=== PATIENT | female | born 1930 | race Caucasian/White ===

== ENCOUNTER 2017-07-26 16:19 | Inpatient (IN) | payer MEDICARE ==
[~2017-07-26] VITALS: Ht 157.5 cm; Wt 63.5 kg
[~2017-07-26 16:19] MED LIST: AMLODIPINE BESY10 MG PO; ASPIRIN EC81 MG PO; METOPROLOL TART25 MG PO; MICARDIS HCT 81 EACH PO; PLAVIX75 MG PO; SENNOSIDES8.6 MG PO; SIMVASTATIN40 MG PO
[2017-07-26] MEDS ORDERED: ACETAMINOPHEN 325 MG TAB PO PRN (17:15)
[2017-07-26] MEDS ORDERED: SODIUM CHLORIDE 0.9% 250ML 250 ML ONE (17:26)
[2017-07-26] MEDS: PIPER-TAZ 3.375 GM 100 ML IV SCH (17:45)
[2017-07-26 17:51] VITALS: BP 156/56
[2017-07-26 17:55] LABS: BASOPHILS % 0.3 % (0.0-1.0); EOSINOPHILS # (AUTO) 0.1 (0.0-0.4); EOSINOPHILS % 0.5 % (0.0-6.0); HEMATOCRIT 42.4 % (34.2-44.1); HEMOGLOBIN 14.4 g/dL (12.0-16.0); LYMPHOCYTES # (AUTO) 0.6 (1.0-3.2); LYMPHOCYTES % 3.9 % (18.0-39.1); MEAN CORPUSCULAR HEMOGLOBIN 29.6 pg (28-32); MEAN CORPUSCULAR VOLUME 87.2 fL (81-99); MONOCYTES # (AUTO) 0.6 (0.2-0.8); MONOCYTES % 4.4 % (4.4-11.3); NEUTROPHILS # (AUTO) 13.3 (2.1-6.9); NEUTROPHILS % 90.3 % (38.7-80.0); PLATELET COUNT 247 x10e3/uL (140-360); RED BLOOD COUNT 4.86 x10e6/uL (3.6-5.1)
[2017-07-26 18:12] LABS: ANION GAP 15.3 mmol/L (8-16); CALCIUM 9.4 mg/dL (8.4-10.2); CREATININE, SERUM 1.6 mg/dL (0.57-1.11); POTASSIUM 3.3 mmol/L (3.5-5.1)
[2017-07-26 18:15] VITALS: BP 156/56
[2017-07-26 18:26] LABS: ERYTHROCYTE SEDIMENTATION RATE 74 mm/hr (0-20)
[2017-07-26] MEDS ORDERED: HYDROCHLOROTHIA25 MG (19:39)
[2017-07-26] MEDS ORDERED: GABAPENTIN100 MG PO (19:41)
[2017-07-26] MEDS ORDERED: AMLODIPINE BESYL5 MG PO (19:44)
[2017-07-26] MEDS ORDERED: LOSARTAN POTASS25 MG PO (19:45)
[2017-07-26] MEDS ORDERED: PANTOPRAZOLE SO40 MG PO (19:46)
[2017-07-26] MEDS ORDERED: ATORVASTATIN CA20 MG PO (19:47)
[2017-07-26 20:00] VITALS: BP 116/50
[2017-07-26] MEDS: VANCOMYCIN 1GM/NS 250 ML 250 ML IV SCH (21:17)
[2017-07-27] VITALS (8 sets, daily range): BP systolic 107–140; BP diastolic 52–68
[2017-07-27] MEDS: PIPER-TAZ 3.375 GM 100 ML IV SCH ×3 (00:46→16:29)
[2017-07-27] MEDS: VANCOMYCIN 1GM/NS 250 ML 250 ML IV SCH ×2 (05:15→18:23)
[2017-07-27 06:44] LABS: BASOPHILS % 0.3 % (0.0-1.0); EOSINOPHILS # (AUTO) 0.5 (0.0-0.4); EOSINOPHILS % 5.4 % (0.0-6.0); HEMATOCRIT 39.3 % (34.2-44.1); HEMOGLOBIN 13.2 g/dL (12.0-16.0); LYMPHOCYTES # (AUTO) 0.8 (1.0-3.2); LYMPHOCYTES % 8.4 % (18.0-39.1); MEAN CORPUSCULAR HEMOGLOBIN 29.1 pg (28-32); MEAN CORPUSCULAR HGB CONC 33.6 g/dL (31-35); MEAN CORPUSCULAR VOLUME 86.8 fL (81-99); MONOCYTES # (AUTO) 0.6 (0.2-0.8); MONOCYTES % 6.1 % (4.4-11.3); NEUTROPHILS # (AUTO) 7.6 (2.1-6.9); NEUTROPHILS % 79.4 % (38.7-80.0); PLATELET COUNT 209 x10e3/uL (140-360); RED BLOOD COUNT 4.53 x10e6/uL (3.6-5.1); RED CELL DISTRIBUTION WIDTH 12.8 % (11.7-14.4)
[2017-07-27] MEDS ORDERED: BUPIVACAINE HCL 0.5% INJ 30 ML VIAL INJ ONE (07:03)
[2017-07-27] MEDS ORDERED: DEXAMETHASONE SOD PHOS INJ 4 MG/ML VIAL ONE (07:03)
[2017-07-27 07:10] LABS: ANION GAP 13.3 mmol/L (8-16); CALCIUM 8.8 mg/dL (8.4-10.2); CREATININE, SERUM 1.12 mg/dL (0.57-1.11); POTASSIUM 3.3 mmol/L (3.5-5.1)
[2017-07-27 07:24] LABS: ERYTHROCYTE SEDIMENTATION RATE 78 mm/hr (0-20)
[2017-07-27] MEDS ORDERED: BACITRACIN 50,000 UNIT VIAL ONE (07:27)
[2017-07-27] MEDS ORDERED: HYDROCODONE/APAP 5MG-325MG TAB PO PRN (07:45)
[2017-07-27] MEDS: PANTOPRAZOLE SOD 40 MG TABEC PO SCH (08:38)
[2017-07-27] MEDS: ASPIRIN 81 MG ENTERIC COATED PO SCH (08:38)
[2017-07-27] MEDS: METOPROLOL TARTRATE 25 MG TAB PO SCH ×2 (08:38→16:30)
[2017-07-27] MEDS: LOSARTAN POTASSIUM 25 MG TAB PO SCH (08:38)
[2017-07-27] MEDS: AMLODIPINE BESYLATE 5 MG TAB PO SCH (08:39)
--- NOTE | 2017-07-27 09:50 | Consultation ---
DATE OF CONSULTATION: July 27, 2017 HISTORY OF PRESENT ILLNESS: This is an 86-year-old female with a past medical history of hypertension and GERD who was direct admitted yesterday for worsening infection to her left foot. She was seen in clinic as an outpatient in the office 2 days ago with a worsening infection to her left foot. The patient lives at home with her son. The patient was brought in saying there were redness, swelling and drainage to her left toe for over 2 weeks. An I and D procedure was performed, and the patient was started on oral antibiotics and instructed to return to clinic in 2 days. The infection subsided some over the past 2 days, but there were still significant erythema and edema to the left foot. X-rays were taken, which revealed osteolytic changes to the patient's left hallux. A decision was made to admit the patient for IV antibiotics and left hallux amputation. No other pedal complaints at this time. PAST MEDICAL HISTORY: Hypertension, GERD. MEDICATIONS: Per the chart. ALLERGIES: NO KNOWN DRUG ALLERGIES. REVIEW OF SYSTEMS: Patient currently denies nausea, vomiting, chest pain or shortness of breath. She has had fevers. PHYSICAL EXAMINATION GENERAL: Alert and oriented times 3, in no apparent distress. VITAL SIGNS: Today, temperature is 98.2, heart rate 76, respiratory rate 18, blood pressure 111/57. Pulse ox is 96% on room air. Temperature max overnight was 100.5. PROBLEM-FOCUSED LOWER EXTREMITY PHYSICAL EXAMINATION VASCULAR: Dorsalis pedis and posterior tibial pulses are faintly palpable. Capillary refill time is 3 to 4 seconds to all digits. There is greater than 2 cm of erythema, edema and warmth noted to the patient's left foot extending from the left hallux. NEUROLOGIC: Sensation is diminished to light touch bilateral. MUSCULOSKELETAL: Large dorsomedial prominences to the 1st metatarsophalangeal joint with the hallux deviated laterally bilateral. Minimal pain on palpation to bilateral lower extremities. DERMATOLOGIC: A deep, probing ulcer is noted to the distal plantar aspect of the patient's left hallux. The wound is 100% fibrotic with malodor and purulent drainage. The wound does probe to bone. Again, greater than 2 cm of periwound erythema, edema, and drainage. LABS: White blood cell count was 14.7. Neutrophil percentage is 90.3. Hemoglobin 14.4, hematocrit 42.4, platelet count 247. Sed rate is 74. Sodium 142, potassium 3.3, chloride 103, CO2 27, BUN 29, creatinine 1.6, glucose 141. ASSESSMENT: Left foot osteomyelitis with cellulitis. PLAN: The patient was seen and evaluated. Discussed condition and treatment options with the patient in detail. At this time, the patient is seen in the preoperative holding area, where the decision was made to proceed with a left hallux amputation. The patient was started on IV vancomycin and Zosyn. Will monitor the patient postoperatively with local wound care, pain control and IV antibiotics. Anticipation of stay is approximately 3 to 5 days to monitor labs and wound healing. Wound cultures will be taken intraoperatively to determine discharge on oral antibiotics. Will have a discussion with the patient and the patient's family about proper foot care and immediate appointment when infection is noted to the feet. The podiatry service will continue to monitor as an inpatient. Job#: [id number]
--- NOTE | 2017-07-27 09:59 | Operative Report ---
DATE OF PROCEDURE: July 27, 2017 PREOPERATIVE DIAGNOSIS: Left hallux osteomyelitis. POSTOPERATIVE DIAGNOSIS: Left hallux osteomyelitis. PLANNED PROCEDURE: Left hallux amputation. ANESTHESIA: MAC sedation with a local block consisting of 10 mL of 0.5% Marcaine plain. HEMOSTASIS: Esmarch tourniquet applied for approximately 15 minutes. ESTIMATED BLOOD LOSS: Less than 10 mL. PATHOLOGY: Left hallux anaerobic and aerobic cultures. MATERIALS: 3-0 nylon, 4-0 Prolene. DETAILS OF PROCEDURE: Patient was seen in the preoperative waiting where the correct procedure and site was identified. The patient was brought to the operating room and placed on the operating table in the supine position. IV sedation was initiated at this time. Anesthesia to the surgical site was achieved via an injection consisting of 10 mL of 0.5% Marcaine plain. The left foot and ankle was then scrubbed, prepped and draped in the usual aseptic manner. An Esmarch tourniquet was applied for approximately 15 minutes. Attention was directed to the medial aspect of the patient's left foot where a deep probing ulceration is noted to the plantar medial aspect of the patient's left hallux with malodor, purulent drainage and probing to the bone. The decision was made to proceed with a left hallux amputation. Two 4 cm curvilinear semi-elliptical incisions were made around the base of the proximal phalanx. The incision was carried down directly to the level of bone. Utilizing a towel clamp, the distal phalanx was grasped, and the digit was disarticulated and passed off to the back table. It should be noted that distal phalanx was noted to be soft and osteolytic with malodor and purulent drainage. The wound cultures were taken at this time. The wound was then flushed with copious amounts of sterile saline mixed with Bacitracin. The incision site was reapproximated with simple interrupted sutures with a combination of 3-0 nylon and 4-0 Prolene. The incision site was then dressed with Adaptic, Betadine-soaked 4 x 4's, dry 4 x 4's, Kerlix, Ha wrap, and a postop shoe. The patient tolerated the procedure and anesthesia well. Patient was transferred to the postoperative recovery unit with vital signs stable and vascular status intact. The patient was monitored there for a short period time before being readmitted to the floor for postoperative monitoring, pain control and IV antibiotics. The podiatry service will continue to monitor as an inpatient. Job#: [id number] RI
[2017-07-27] MEDS ORDERED: MORPHINE SULFATE 2 MG/ML SYR IV PRN (11:00)
--- NOTE | 2017-07-27 11:33 | Diagnostic Imaging Report ---
TECHNIQUE: Magnetic resonance imaging of the LEFT foot was performed WITHOUT injected contrast. HISTORY: Pain COMPARISON: None available. DISCUSSION: Limited large field MRI of the foot. Incomplete fat suppression involving the distal forefoot. Generalized soft tissue edema and swelling. Bone marrow edema within the distal phalanx with possible T1 signal change. Limited evaluation of the remainder of the phalanges. No fluid collection. IMPRESSION: Limited MRI of the foot due to large field of view. Possible osteomyelitis of the distal phalanx of the hallux. Generalized soft tissue swelling and edema of the foot. Signed by: Dr. Se Bustos M.D. on 07/27/2017 11:29 AM
[2017-07-27] MEDS ORDERED: PROPOFOL IV EMULSION 10 MG/ML 20 ML VIAL ONE (15:20)
[2017-07-27] MEDS ORDERED: SOD CHL 0.45%/POT CHL 20MEQ 1,000 ML IV SCH (16:30)
--- NOTE | 2017-07-27 17:43 | History and Physical ---
PRIMARY CARE PROVIDER: Dr. Dequan Streeter. CHIEF COMPLAINT: Osteomyelitis left forefoot. HISTORY OF PRESENT ILLNESS: Ms. Diaz is an 86-year-old lady who has been undergoing wound care for what appear to be ischemic ulcers due to peripheral arterial disease on the left forefoot and which has developed osteomyelitis. The patient was admitted last night and has already been to the OR this morning for a left foot transmetatarsal amputation. REVIEW OF SYSTEMS: She denies fever, chills or weight loss. She denies sinus congestion or sore throat. She denies chest pain or palpitations. She denies shortness breath, wheezing or cough. She denies abdominal pain, nausea, vomiting or melena. She denies dysuria or flank pain. She denies rash or pruritus. She denies joint pain or swelling. She did have pain in her left forefoot but has no pain now that she has had surgery. She denies bleeding or bruising. She denies headache, vertigo or loss of consciousness. She denies depression, agitation, homicidal or suicidal ideation. PAST MEDICAL HISTORY: Significant for hypertension. She also has a history of right shoulder reconstruction after a fracture many years ago. 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 She is not a smoker and has never been a smoker. CURRENT MEDICATIONS INCLUDE: Norvasc 5 mg daily. Aspirin 81 mg daily. Lipitor 20 mg daily. Gabapentin 200 mg at bedtime. Losartan 50 mg daily. Metoprolol 25 mg twice a day. Protonix 40 mg q.a.m. Hydrochlorothiazide 25 mg daily. ALLERGIES: SHE HAS NO KNOWN DRUG ALLERGIES. FAMILY HISTORY: Significant for hypertension. SOCIAL HISTORY: Patient is . Italian is her primary language. She does not smoke, drink or use illegal drugs, and she lives alone and is generally independently functioning. PHYSICAL EXAM: PSYCHIATRIC: She is alert and oriented times 3 with normal mood and affect. CONSTITUTIONAL: She has a normal body habitus. Is in no acute distress. VITAL SIGNS: Blood pressure 135/58. Pulse 73 and regular. Respiratory rate 18. O2 sat 94% on room air. Temperature 98.1. HEENT: Her head is atraumatic. Her eyes are anicteric with clear conjunctivae. Ears and nares are without erythema or discharge. Oropharynx is clear. NECK: Is supple with no mass or thyromegaly. LYMPHATIC SYSTEM: She has no palpable cervical, axillary or inguinal adenopathy. CARDIOVASCULAR: Her heart has a regular rate and rhythm without murmur or extra heart sound. She has no carotid bruit. She has no peripheral edema. She has weak dorsal pedal pulses. RESPIRATORY: Lungs are clear to auscultation and percussion with normal respiratory effort. GASTROINTESTINAL: Her abdomen is soft without organomegaly, masses or tenderness. She has normal bowel sounds present. CUTANEOUS: Her skin is warm and dry to the touch with no rash or skin breakdown. MUSCULOSKELETAL: Her joints are in normal alignment without erythema or swelling. She has no calf tenderness. She has a surgical dressing on the left foot status post left foot transmetatarsal amputation. She has a bulky surgical dressing in place that was put on after surgery this morning. NEUROLOGIC: Exam is nonfocal with intact cranial nerves and no motor or sensory deficits. DIAGNOSTIC STUDIES: MRI of the foot showed osteomyelitis in the distal phalange of the first toe and generalized soft-tissue swelling and edema of the forefoot. Her CBC showed a white count of 14.7 with 90% neutrophils, 4% lymphocytes. Hemoglobin 14.4, hematocrit 42.4 and platelet count 247,000. Her chemistry shows a potassium of 3.3. The rest of her electrolytes are normal. Creatinine 1.6, BUN 29 for a GFR of 30. Calcium 9.4. Glucose 141. IMPRESSION AND PLAN: 1. Osteomyelitis with sepsis of the left foot. The patient has been started on IV vancomycin and Zosyn. Has already been to the OR for a left foot transmetatarsal amputation. Will start the patient on nutritional supplements for wound healing. 2. Diabetic foot. As above, the patient has already had a left foot TMA and is on IV vancomycin and Zosyn. 3. Hypertension. Well controlled on current medications. Will continue losartan, metoprolol, Norvasc and aspirin and Lipitor. Will hold hydrochlorothiazide at this time due to acute kidney injury. 4. Acute kidney injury. Patient's baseline GFR is unknown. However, her GFR improved from 30 to 46 overnight with hydration. So, will assume that the patient has acute kidney injury and will hydrate until we establish her baseline. Will hold hydrochlorothiazide at this time. 5. Peripheral arterial disease status post left foot transmetatarsal amputation and right 2nd toe amputation. Will continue on Norvasc and Lipitor. 6. For prophylaxis, the patient will be on Protonix for GI prophylaxis and Lovenox for DVT prophylaxis. Job#: [id number] EV
[2017-07-27] MEDS: ZINC SULFATE 220 MG CAP PO SCH (17:54)
[2017-07-27] MEDS: MAGNESIUM OXIDE 400 MG TAB PO SCH (17:54)
[2017-07-27] MEDS: MULTIVITAMINS/MINERALS TAB PO SCH (17:54)
[2017-07-27] MEDS: ASCORBIC ACID 500 MG TAB PO SCH (17:54)
[2017-07-27] MEDS: OYST-CAL-D 500MG TABLET PO SCH (17:54)
[2017-07-27] MEDS: ATORVASTATIN 20 MG TAB PO SCH (20:56)
[2017-07-27] MEDS: GABAPENTIN 100 MG CAP PO SCH (20:56)
[2017-07-27] MEDS ORDERED: GABAPENTIN 300 MG CAP PO SCH (21:00)
[2017-07-28] VITALS (8 sets, daily range): BP systolic 125–163; BP diastolic 59–70
[2017-07-28] MEDS: PIPER-TAZ 3.375 GM 100 ML IV SCH ×3 (00:51→16:48)
[2017-07-28] MEDS: VANCOMYCIN 1GM/NS 250 ML 250 ML IV SCH ×2 (05:07→17:55)
[2017-07-28 07:24] LABS: BASOPHILS % 0.4 % (0.0-1.0); EOSINOPHILS # (AUTO) 0.6 (0.0-0.4); HEMATOCRIT 36.6 % (34.2-44.1); HEMOGLOBIN 12.3 g/dL (12.0-16.0); LYMPHOCYTES # (AUTO) 0.9 (1.0-3.2); LYMPHOCYTES % 11.7 % (18.0-39.1); MEAN CORPUSCULAR HEMOGLOBIN 29.4 pg (28-32); MEAN CORPUSCULAR HGB CONC 33.6 g/dL (31-35); MEAN CORPUSCULAR VOLUME 87.6 fL (81-99); MONOCYTES # (AUTO) 0.6 (0.2-0.8); MONOCYTES % 8.2 % (4.4-11.3); NEUTROPHILS # (AUTO) 5.5 (2.1-6.9); NEUTROPHILS % 71.2 % (38.7-80.0); PLATELET COUNT 198 x10e3/uL (140-360); RED BLOOD COUNT 4.18 x10e6/uL (3.6-5.1)
[2017-07-28 07:48] LABS: ALANINE AMINOTRANSFERASE 14 IU/L (0-55); ALBUMIN 2.5 g/dL (3.5-5.0); ALBUMIN/GLOBULIN RATIO 0.9 (0.8-2.0); ALKALINE PHOSPHATASE 54 IU/L (40-150); ANION GAP 10.8 mmol/L (8-16); BLOOD UREA NITROGEN 13 mg/dL (7-26); BUN/CREATININE RATIO 16 (6-25); CALCIUM 8.4 mg/dL (8.4-10.2); CARBON DIOXIDE 24 mmol/L (22-29); CHLORIDE 109 mmol/L (98-107); CREATININE, SERUM 0.81 mg/dL (0.57-1.11); EST GLOMERULAR FILTRATION RATE > 60 ML/MIN (60-); GLUCOSE 100 mg/dL (74-118); POTASSIUM 3.8 mmol/L (3.5-5.1); SODIUM 140 mmol/L (136-145)
[2017-07-28 08:09] LABS: THYROID STIMULATING HORMONE 0.753 uIU/mL (0.350-4.940)
[2017-07-28] MEDS: ZINC SULFATE 220 MG CAP PO SCH ×2 (08:44→16:48)
[2017-07-28] MEDS: OYST-CAL-D 500MG TABLET PO SCH ×2 (08:44→16:48)
[2017-07-28] MEDS: MULTIVITAMINS/MINERALS TAB PO SCH ×2 (08:44→16:48)
[2017-07-28] MEDS: ASPIRIN 81 MG ENTERIC COATED PO SCH (08:44)
[2017-07-28] MEDS: ASCORBIC ACID 500 MG TAB PO SCH ×2 (08:44→16:48)
[2017-07-28] MEDS: MAGNESIUM OXIDE 400 MG TAB PO SCH ×2 (08:44→16:48)
[2017-07-28] MEDS: PANTOPRAZOLE SOD 40 MG TABEC PO SCH (08:44)
[2017-07-28] MEDS: LOSARTAN POTASSIUM 25 MG TAB PO SCH (08:44)
[2017-07-28] MEDS: AMLODIPINE BESYLATE 5 MG TAB PO SCH (08:45)
[2017-07-28] MEDS: METOPROLOL TARTRATE 25 MG TAB PO SCH ×2 (08:45→16:48)
--- NOTE | 2017-07-28 11:10 | Progress Note ---
DATE: July 28, 2017 SUBJECTIVE: This is an 86-year-old female with a past medical history of hypertension, GERD, who is postoperative day 1 left hallux amputation. The patient relates that she is doing well with minimal pain to her left foot. Denies nausea, vomiting, fever, chills, chest pain, or shortness of breath. No acute issues overnight. OBJECTIVE GENERAL: Alert and oriented times 3. No apparent distress. VITAL SIGNS: Today, temperature is 97, heart rate 85, respiratory rate 18, blood pressure 163/70, and pulse ox 92% on room air. LOWER EXTREMITY PHYSICAL EXAMINATION VASCULAR: Dorsalis pedis and posterior tibial pulses are faintly palpable. Capillary refill time is 3-4 seconds to all remaining digits. Negative erythema, edema, or ecchymosis is noted to the patient's left foot. NEUROLOGICAL: Sensation is diminished to light touch bilateral. MUSCULOSKELETAL: Left hallux amputation. Large dorsal medial prominence to the 1st metatarsophalangeal joint to the right foot with amputated right 2nd digit. DERMATOLOGICAL: Incision site is noted to the left hallux. Sutures are in place and intact. No evidence of wound dehiscence. No local acute signs of infection. Erythema, edema and warmth to the left lower extremity has significantly reduced since being seen in the office. LABS: White blood cell count 7.7, hemoglobin 12.3, hematocrit 36.6, and platelet count 198,000. Neutrophil percent is 71. Sodium 140, potassium 3.9, chloride 109, BUN 13, creatinine 0.8, glucose 100. ASSESSMENT: Left foot osteomyelitis with cellulitis: Postoperative day 1 left hallux amputation. PLAN: The patient was seen and evaluated. Discussed condition and treatment options with the patient in detail. A dry, sterile dressing change was performed at bedside today with Betadine wet-to-dry. The wound is clean, dry and intact. There is no evidence of wound dehiscence or local acute signs of infection. At the moment, wound cultures are growing out many gram-positive cocci in pairs. Few gram-positive rods. Sensitivities are to follow. Will continue IV vancomycin and Zosyn. The patient may heal touch weightbearing for transfers to bedside commode only. No full weightbearing to the left foot. Will wait for sensitivities to return. The patient may be discharged in 1-2 days after sensitivities return on oral antibiotics. The podiatry service will continue to monitor as an inpatient. Job#: [id number] RI
[2017-07-28] MEDS ORDERED: HYDRALAZINE HCL 20 MG/ML VIAL IV PRN (11:30)
[2017-07-28] MEDS ORDERED: ONDANSETRON HCL 4 MG ORAL DISINTEGRATING TAB SL PRN (11:30)
[2017-07-28] MEDS ORDERED: MORPHINE SULFATE 2 MG/ML SYR IV PRN (14:00)
[2017-07-28] MEDS: LACTOBACILLUS ACIDOPHILUS CAPSULE PO SCH (16:48)
[2017-07-28] MEDS ORDERED: SODIUM CHLORIDE 0.9% 250ML 250 ML ONE (17:44)
--- NOTE | 2017-07-28 18:08 | Consultation ---
DATE OF CONSULTATION: REASON FOR CONSULTATION: Osteomyelitis. HISTORY OF PRESENT ILLNESS: This patient, who is a very pleasant, 86-year-old female, has history of hypertension and GERD. The patient was admitted directly from Dr. Hanks's office on July 27 for worsening condition of her left big toe. The patient apparently has been followed as an outpatient. She comes in with worsening condition of her left big toe. She has been on antibiotic before, and x-ray showed she had osteolytic changes of the left hallux. Patient was admitted and underwent amputation. Infectious disease was consulted to make recommendation in terms of antibiotic. When I saw the patient, she was lying in bed comfortably. She has no complaints at the present time. REVIEW OF SYSTEMS HEENT: Negative. PULMONARY: Negative. CARDIAC: Negative. : Negative. GI: Negative. SKIN: There is no rash at the present time. OTHER: The 14-point review is all negative. PAST MEDICAL HISTORY: Hypertension. PAST SURGICAL HISTORY: As above. ALLERGIES: NKA. SOCIAL HISTORY: There is no smoking, drug abuse or alcohol abuse. FAMILY HISTORY: Otherwise unremarkable. PHYSICAL EXAMINATION GENERAL: She is currently alert and oriented, does not seem to be in acute distress. VITALS: Stable, currently afebrile. HEENT: She is nonicteric. NECK: Supple. CHEST: Clear. COR: No murmur. ABDOMEN: Soft. Bowel sounds present. No tenderness. No hepatosplenomegaly. EXTREMITIES: No edema. Foot: The patient underwent amputation of the toe. The wound looked good. An MRI of the foot was ordered, which showed osteomyelitis of the distal phalanx of the hallux. IMPRESSION 1. Concern about osteomyelitis of the foot in a patient who just lost her toe. Will recommend to put her on IV vancomycin and Zosyn for 3 weeks. I agree with LT[facility]. Will follow. Will check weekly CBC and chem panel. 2. Hypertension. 3. Peripheral arterial disease. 4. Status post amputation of the big toe. Will discuss with you. Job#: [id number]
[2017-07-28] MEDS: GABAPENTIN 100 MG CAP PO SCH (20:39)
[2017-07-28] MEDS: ATORVASTATIN 20 MG TAB PO SCH (20:39)
[2017-07-28] MEDS ORDERED: LOPERAMIDE HCL 2 MG CAP PO STA (22:33)
[2017-07-29] VITALS (8 sets, daily range): BP systolic 140–190; BP diastolic 60–77
[2017-07-29] MEDS: PIPER-TAZ 3.375 GM 100 ML IV SCH (02:54)
[2017-07-29 05:48] LABS: BASOPHILS % 0.4 % (0.0-1.0); EOSINOPHILS # (AUTO) 0.4 (0.0-0.4); EOSINOPHILS % 4.9 % (0.0-6.0); HEMATOCRIT 44.5 % (34.2-44.1); HEMOGLOBIN 14.9 g/dL (12.0-16.0); LYMPHOCYTES # (AUTO) 1.7 (1.0-3.2); LYMPHOCYTES % 20.8 % (18.0-39.1); MEAN CORPUSCULAR HEMOGLOBIN 29.1 pg (28-32); MEAN CORPUSCULAR HGB CONC 33.5 g/dL (31-35); MEAN CORPUSCULAR VOLUME 86.9 fL (81-99); MONOCYTES # (AUTO) 0.6 (0.2-0.8); MONOCYTES % 7.1 % (4.4-11.3); NEUTROPHILS # (AUTO) 5.3 (2.1-6.9); NEUTROPHILS % 66.4 % (38.7-80.0); PLATELET COUNT 221 x10e3/uL (140-360); RED BLOOD COUNT 5.12 x10e6/uL (3.6-5.1); RED CELL DISTRIBUTION WIDTH 12.6 % (11.7-14.4)
[2017-07-29 06:05] LABS: BLOOD UREA NITROGEN 10 mg/dL (7-26); BUN/CREATININE RATIO 13 (6-25); CALCIUM 9.5 mg/dL (8.4-10.2); CARBON DIOXIDE 23 mmol/L (22-29); CHLORIDE 109 mmol/L (98-107); CREATININE, SERUM 0.75 mg/dL (0.57-1.11); EST GLOMERULAR FILTRATION RATE > 60 ML/MIN (60-); GLUCOSE 94 mg/dL (74-118); SODIUM 141 mmol/L (136-145)
[2017-07-29] MEDS: LOPERAMIDE HCL 2 MG CAP PO PRN ×2 (06:55→18:19)
[2017-07-29] MEDS ORDERED: CHOLESTYRAMINE 4 GM PACKET PO PRN (08:30)
[2017-07-29] MEDS: MAGNESIUM OXIDE 400 MG TAB PO SCH ×2 (08:58→16:20)
[2017-07-29] MEDS: ZINC SULFATE 220 MG CAP PO SCH ×2 (08:58→16:20)
[2017-07-29] MEDS: PANTOPRAZOLE SOD 40 MG TABEC PO SCH (08:58)
[2017-07-29] MEDS: ASPIRIN 81 MG ENTERIC COATED PO SCH (08:58)
[2017-07-29] MEDS: OYST-CAL-D 500MG TABLET PO SCH ×2 (08:58→16:20)
[2017-07-29] MEDS: CEFTRIAXONE SOD 1 GM VIAL IV SCH (08:58)
[2017-07-29] MEDS: ASCORBIC ACID 500 MG TAB PO SCH ×4 (08:58→16:20)
[2017-07-29] MEDS ORDERED: ZINC SULFATE 220 MG CAP PO SCH (09:00)
[2017-07-29] MEDS ORDERED: OYST-CAL-D 500MG TABLET PO SCH (09:00)
[2017-07-29] MEDS ORDERED: MAGNESIUM OXIDE 400 MG TAB PO SCH (09:00)
[2017-07-29] MEDS: LOSARTAN POTASSIUM 25 MG TAB PO SCH (09:00)
[2017-07-29] MEDS ORDERED: LACTOBACILLUS ACIDOPHILUS CAPSULE PO SCH (09:00)
[2017-07-29] MEDS: METOPROLOL TARTRATE 25 MG TAB PO SCH ×2 (09:01→16:20)
[2017-07-29] MEDS: LACTOBACILLUS ACIDOPHILUS CAPSULE PO SCH ×2 (09:02→16:20)
[2017-07-29] MEDS: AMLODIPINE BESYLATE 5 MG TAB PO SCH (09:02)
[2017-07-29] MEDS: MULTIVITAMINS/MINERALS TAB PO SCH (09:02)
[2017-07-29] MEDS: VANCOMYCIN 250MG/5ML ORAL SOLN PO SCH ×3 (12:00→18:19)
--- NOTE | 2017-07-29 15:54 | Progress Note ---
DATE: July 29, 2017 SUBJECTIVE: This is an 86-year-old female with a past medical history of hypertension, GERD, who is postoperative day 1 of left hallux amputation. The patient relates that she is doing well with minimal pain to her left foot. Denies nausea, fever, chills, chest pain, or shortness of breath. No acute issues overnight. OBJECTIVE GENERAL: Alert and oriented times 3 and in no apparent distress. VITAL SIGNS: Today, temperature 97.8, respiratory rate 20, blood pressure 145/65, pulse ox 96% on room air. LOWER EXTREMITY PHYSICAL EXAMINATION VASCULAR: Dorsalis pedis and posterior tibial pulses are faintly palpable. Capillary refill time is 3-4 seconds to all remaining digits. Negative erythema, edema or ecchymosis is noted to the patient's left foot. NEUROLOGICAL: Sensation is diminished to light touch bilateral. MUSCULOSKELETAL: Left hallux amputation with a large dorsal medial prominence to the 1st metatarsophalangeal joint. Amputation of the right 2nd digit. DERMATOLOGICAL: Incision site is noted to the left hallux. Sutures are in place and intact. No evidence of wound dehiscence. No local acute signs of infection. Negative erythema, edema or warmth to the left lower extremity. LABS: White blood cell count is 7.98, hemoglobin 14.9, hematocrit 44.5. Sodium 141, potassium 4, chloride 109, CO2 23, BUN 10, creatinine 0.75. Hemoglobin A1c is 5.8. ASSESSMENT: Left foot osteomyelitis, postoperative day 2, left hallux amputation. PLAN: The patient was seen and evaluated. Discussed condition and treatment options with the patient in detail. Dry, sterile dressing change was performed today with Betadine wet-to-dry. The wound is clean, dry and intact. No evidence of wound dehiscence or local acute signs of infection. Wound cultures MSSA. Infectious disease has been consulted. Antibiotics will be deferred to them. The patient may be heal touch weightbearing for transfers to bedside commode only. No full weightbearing to the patient's left foot. Apparently, the patient is having diarrhea. There is concern for C. diff. There is an LTAC transfer pending. The patient is stable for discharge per podiatry standpoint. Job#: [id number]
[2017-07-29] MEDS: ATORVASTATIN 20 MG TAB PO SCH (21:35)
[2017-07-29] MEDS: GABAPENTIN 100 MG CAP PO SCH (21:35)
[2017-07-30] VITALS: BP 139/64
[2017-07-30] MEDS: VANCOMYCIN 250MG/5ML ORAL SOLN PO SCH ×3 (00:19→11:50)
[2017-07-30 04:00] VITALS: BP 153/67
[2017-07-30 07:10] LABS: BASOPHILS # (AUTO) 0.1 (0.0-0.1); BASOPHILS % 0.6 % (0.0-1.0); EOSINOPHILS # (AUTO) 0.5 (0.0-0.4); EOSINOPHILS % 5.3 % (0.0-6.0); HEMATOCRIT 40.1 % (34.2-44.1); HEMOGLOBIN 13.2 g/dL (12.0-16.0); LYMPHOCYTES # (AUTO) 2.2 (1.0-3.2); LYMPHOCYTES % 24.9 % (18.0-39.1); MEAN CORPUSCULAR HEMOGLOBIN 29.2 pg (28-32); MEAN CORPUSCULAR HGB CONC 32.9 g/dL (31-35); MEAN CORPUSCULAR VOLUME 88.7 fL (81-99); MONOCYTES # (AUTO) 0.6 (0.2-0.8); NEUTROPHILS # (AUTO) 5.6 (2.1-6.9); NEUTROPHILS % 61.6 % (38.7-80.0); PLATELET COUNT 221 x10e3/uL (140-360); RED BLOOD COUNT 4.52 x10e6/uL (3.6-5.1); RED CELL DISTRIBUTION WIDTH 12.7 % (11.7-14.4)
[2017-07-30 07:22] LABS: BLOOD UREA NITROGEN 10 mg/dL (7-26); BUN/CREATININE RATIO 13 (6-25); CALCIUM 8.9 mg/dL (8.4-10.2); CARBON DIOXIDE 27 mmol/L (22-29); CHLORIDE 106 mmol/L (98-107); CREATININE, SERUM 0.78 mg/dL (0.57-1.11); EST GLOMERULAR FILTRATION RATE > 60 ML/MIN (60-); GLUCOSE 92 mg/dL (74-118); SODIUM 140 mmol/L (136-145)
[2017-07-30] MEDS: PANTOPRAZOLE SOD 40 MG TABEC PO SCH (08:05)
[2017-07-30] MEDS: ZINC SULFATE 220 MG CAP PO SCH ×2 (08:05→17:01)
[2017-07-30] MEDS: OYST-CAL-D 500MG TABLET PO SCH ×2 (08:05→17:00)
[2017-07-30] MEDS: MAGNESIUM OXIDE 400 MG TAB PO SCH ×2 (08:05→17:00)
[2017-07-30 08:06] VITALS: BP 168/73
[2017-07-30] MEDS: LACTOBACILLUS ACIDOPHILUS CAPSULE PO SCH ×2 (08:07→17:00)
[2017-07-30] MEDS: CEFTRIAXONE SOD 1 GM VIAL IV SCH (08:07)
[2017-07-30] MEDS: AMLODIPINE BESYLATE 5 MG TAB PO SCH (08:07)
[2017-07-30] MEDS: ASCORBIC ACID 500 MG TAB PO SCH ×2 (08:07→17:01)
[2017-07-30] MEDS: MULTIVITAMINS/MINERALS TAB PO SCH (08:07)
[2017-07-30] MEDS: METOPROLOL TARTRATE 25 MG TAB PO SCH ×2 (08:07→17:05)
[2017-07-30] MEDS: LOSARTAN POTASSIUM 25 MG TAB PO SCH (08:07)
[2017-07-30] MEDS: ASPIRIN 81 MG ENTERIC COATED PO SCH (08:07)
[2017-07-30 09:47] LABS: EOSINOPHILS % (MANUAL) 4 % (0-7); LYMPHOCYTES % (MANUAL) 16 % (19-48); METAMYELOCYTES % (MANUAL) 1 % (0-0); MONOCYTES % (MANUAL) 2 % (3.4-9.0); NEUTROPHILS % (MANUAL) 71 % (40-74)
[2017-07-30 09:48] LABS: ANISOCYTOSIS SLIGHT; PLATELET ESTIMATE ADEQUATE; PLATELET MORPHOLOGY COMMENT NORMAL; RBC MORPHOLOGY COMMENT NORMAL
[2017-07-30 14:55] VITALS: BP 163/73
[2017-07-30 18:02] VITALS: BP 163/69
--- NOTE | 2017-07-30 20:22 | Discharge Summary ---
ADMITTING DIAGNOSES 1. Osteomyelitis with sepsis of the left foot. 2. Diabetic foot. 3. Hypertension. 4. Acute kidney injury. 5. Peripheral arterial disease, status post left foot hallux amputation and right 2nd toe amputation. DISCHARGE DIAGNOSES 1. Osteomyelitis with sepsis of the left foot. 2. Diabetic foot. 3. Hypertension. 4. Acute kidney injury. 5. Peripheral arterial disease, status post left foot hallux amputation and right 2nd toe amputation. 6. Rule out Clostridium difficile. 7. Hypokalemia. HISTORY: The patient has a history of hypertension. 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 HOSPITAL COURSE: This 86-year-old female, who has been undergoing wound care for ulcers due to PAD on the left forefoot, has now developed osteomyelitis. Upon admission, podiatry was consulted, and the patient was taken to the OR for a left hallux amputation. The patient was resumed on home medicines for hypertension, while holding the hydrochlorothiazide due to kidney injury. On admission, the patient's GFR was 46. At the time of discharge, the GFR was 60, and the creatinine was 0.78. MRI of the foot showed possible osteomyelitis of the distal phalanx of the hallux, general soft-tissue swelling and edema of the foot. Infectious disease was consulted after finding osteomyelitis. The patient will be nonweightbearing to the left foot and will transfer to [place] for long-term antibiotics. Both podiatry and infectious disease agree. In the meantime, the patient will have a dry sterile dressing with Betadine wet to dry. Microbiology for the wound culture showed Staph aureus. Patient getting Rocephin per infectious disease. On the day of discharge, sodium is 140, potassium 4.0, BUN 10, creatinine 0.78, GFR over 60. WBC 9, hemoglobin 13.3, hematocrit 40.1, platelets 221. The patient will transfer to [place] for long-term antibiotic and physical therapy. Family as well as patient are in agreement with the plan. Dictated by: Yeimy Segundo NP JOSUE FELICIANO MD Job#: [id number]
== END 2017-07-30 18:20 | DRG 854 ==
LOC: MED/SURG3 16:26
PROVIDERS: ADMIT Internal Medicine; ATTEND Internal Medicine
PROC: 0Y6Q0Z1 Detachment at Left 1st Toe, High, Open Approach (ICD-10-PCS; principal; 2017-07-27 08:00)
CPT/HCPCS: 36415; 80048; 80053; 80202; 83036; 83735; 84443; 85025; 85651; 87071; 87075; 87186; 87205; 87493; 88305; 88311; 93005; 97139; J0360; J0696; J1100; J2270; J2543; J3370; J7050

== ENCOUNTER → 2018-02-08 | Outpatient (CLI) | payer MEDICARE ==
[~2018-02-08] MED LIST changes: +AMLODIPINE BESYL5 MG PO; +ATORVASTATIN CA20 MG PO; +GABAPENTIN100 MG PO; +HYDROCHLOROTHIA25 MG; +LOSARTAN POTASS25 MG PO; +PANTOPRAZOLE SO40 MG PO
--- NOTE | 2018-02-08 11:58 | Diagnostic Imaging Report ---
MRI of the right forefoot without contrast. History: Foot pain and swelling. Chronic osteomyelitis.. Technique: Multiplanar multisequence MRI of the foot without contrast Comparison: None Findings: There is no acute fracture, dislocation or evidence of avascular necrosis. Scattered degenerative changes are seen. There is a hallux valgus deformity at the first metatarsophalangeal joint with associated degenerative arthrosis. The second toe is surgically absent with associated postsurgical change. No focal bone marrow edema or cortical destruction is seen to suggest osteomyelitis. Chronic appearing deformity of the toes. No ligamentous or tendon tear is seen. Soft tissue swelling and apparent skin ulceration adjacent to the distal first metatarsal on the plantar surface. No adjacent fluid collection/abscess is seen. Mild diffuse muscle atrophy. The visualized neurovascular bundles are intact. Impression: Soft tissue swelling and apparent skin ulceration adjacent to the distal first metatarsal on the plantar surface. This may be due to cellulitis. No adjacent fluid collection/abscess is seen. No cortical destruction or focal bone marrow edema is seen to suggest osteomyelitis. Signed by: Dr. Luis Robledo M.D. on 02/08/2018 11:54 AM
== END ==
LOC: MRI 10:32
PROVIDERS: ATTEND Podiatrist Foot & Ankle Surgery
DX: M86.671 Other chronic osteomyelitis, right ankle and foot (principal)

== ENCOUNTER 2018-04-01 18:47 | Inpatient (IN) | payer MEDICARE ==
[~2018-04-01] VITALS: Ht 157.5 cm; Wt 58.7 kg
--- OUTSIDE RECORDS SUMMARY | 2018-04-01 18:50 | XMS REPORT ---
Author Author [facility] Address Unknown Phone Unavailable Care Team Providers Care Associate Professor Of Surgery Name Role Phone NOAH CURTIS Unavailable Unavailable [place] KEITA Unavailable Unavailable JOSUE FELICIANO Unavailable Unavailable Problems This patient has no known problems. Allergies, Adverse Reactions, Alerts This patient has no known allergies or adverse reactions. Medications This patient has no known medications. Results Test Description Test Time Test Comments Text Results Atomic Results Result Comments TAGGED WBC 2018-03-21 19:11:00 [place] [address] Patient Name: APRIL RENTERIA MR #: [id number] : 1930 Age/Sex: 87/F Req #: [id number] Adm Physician: Ordered by: NOAH CURTIS MD Report #: [id number] Location: [place] Room/Bed: Procedure: [id number] NM/TAGGED WBC Exam Date: 03/21/18 Exam Time: 0815 REPORT STATUS: Signed Labeled WBC Study Reason for exam: 87 F with on-healing right foot ulcer (over the distal aspect of the right metatarsal on the plantar surface) x 4-5 months. 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 Comparison: MRI right foot 02/08/2018 Report: The patient's own white blood cells were labeled with Tc-99m HMPAO 27 mCi by a commercial radiopharmacy. Images of the feet and ankles were obtained at 4 hours post administration of the labeled white blood cells. Focal increased tracer is seen at the site of the ulcer at the distal aspect of the right first metatarsal and along the medial aspect of the plantar surface of the foot but no increased tracer activity is seen within adjacent bone. The left foot and ankle are unremarkable. IMPRESSION: Soft tissue inflammation along the plantar aspect of the right foot medially. No scan evidence of osteomyelitis. Signed by: Dr. Delano Vásquez M.D. on 03/21/2018 7:19 PM Dictated By: DELANO VÁSQUEZ MD 18 Transcribed By: MYRANDA on 03/21/181918 COPY TO: NOAH CURTIS MD MRI FOOT RIGHT WO 2018-02-08 11:45:00 [place] [address] Patient Name: APRIL RENTERIA MR #: [id number] : 1930 Age/Sex: 87/F Req #: [id number] Adm Physician: Ordered by: CHANDLER KEITA DPM Report #: [id number] Location: MRI Room/Bed: Procedure: [id number] MRI/MRI FOOT RIGHT WO Exam Date: 02/08/18 Exam Time: 1058 REPORT STATUS: Signed MRI of the right forefoot without contrast. History: Foot pain and swelling. Chronic osteomyelitis.. Technique: Multiplanar multisequence MRI of the foot without contrast Comparison: None Findings: There is no acute fracture, dislocation or evidence of avascular necrosis. Scattered degenerative changes are seen. There is a hallux valgus deformity at the first metatarsophalangeal joint with associated degenerative arthrosis. The second toe is surgically absent with associated postsurgical change. No focal bone marrow edema or cortical destruction is seen to suggest osteomyelitis. Chronic appearing deformity of the toes. No ligamentous or tendon tear is seen. Soft tissue swelling and apparent skin ulceration adjacent to the distal first metatarsal on the plantar surface. No adjacent fluid collection/abscess is seen. Mild diffuse muscle atrophy. The visualized neurovascular bundles are intact. Impression: Soft tissue swelling and apparent skin ulceration adjacent to the distal first metatarsal on the plantar surface. This may be due to cellulitis. No adjacent fluid collection/abscess is seen. No cortical destruction or focal bone marrow edema is seen to suggest osteomyelitis. Signed by: Dr. Mansi Robledo M.D. on 02/08/2018 11:54 AM Dictated By: MANSI ROBLEDO MD, MD 1156 Transcribed By: MYRANDA on 02/08/18 1154 COPY TO: CHANDLER KEITA [facility] MRI FOOT LEFT WO [place] [address] Patient Name: APRIL RENTERIA MR #: [id number] : 1930 Age/Sex: 86/F Req #: [id number] Adm Physician: JOSUE FELICIANO MD Ordered by: JOSUE FELICIANO MD Report #: [id number] Location: [facility]UR[facility] Room/Bed: [facility] Procedure: [id number] MRI/MRI FOOT LEFT WO Exam Date: Exam Time: REPORT STATUS: Signed TECHNIQUE: Magnetic resonance imaging of the LEFT foot was performed WITHOUT injected contrast. HISTORY: Pain COMPARISON: None available. DISCUSSION: Limited large field MRI of the foot. Incomplete fat suppression involving the distal forefoot. Generalized soft tissue edema and swelling. Bone marrow edema within the distal phalanx with possible T1 signal change. Limited evaluation of the remainder of the phalanges. No fluid collection. IMPRESSION: Limited MRI of the foot due to large field of view. Possible osteomyelitis of the distal phalanx of the hallux. Generalized soft tissue swelling and edema of the foot. Signed by: Dr. Jeffrey Kennedy M.D. on 07/27/2017 11:29 AM Dictated By: JEFFREY KENNEDY MD 112 Transcribed By: MYRANDA on 07/27/171128 COPY TO: JOSUE FELICIANO MD
--- NOTE | 2018-04-01 19:35 | NUR ---
RECEIVED PATIENT FROM HOME VIA WHEELCHAIR ACCOMPANIED BY HER SON. PATIENT IS ALERT AND ORIENTED. ASSISTED IN BED. INSTRUCTION TO USE CALL LIGHT GIVEN.
[2018-04-01 20:00] VITALS: BP 159/65
[2018-04-01 20:10] VITALS: BP 159/65
[2018-04-01 20:48] LABS: BASOPHILS # (AUTO) 0.1 (0.0-0.1); BASOPHILS % 0.6 % (0.0-1.0); EOSINOPHILS # (AUTO) 0.5 (0.0-0.4); EOSINOPHILS % 4.9 % (0.0-6.0); HEMATOCRIT 35.7 % (34.2-44.1); HEMOGLOBIN 11.8 g/dL (12.0-16.0); LYMPHOCYTES # (AUTO) 1.6 (1.0-3.2); LYMPHOCYTES % 16.6 % (18.0-39.1); MEAN CORPUSCULAR HEMOGLOBIN 28.2 pg (28-32); MEAN CORPUSCULAR HGB CONC 33.1 g/dL (31-35); MEAN CORPUSCULAR VOLUME 85.2 fL (81-99); MONOCYTES # (AUTO) 0.9 (0.2-0.8); MONOCYTES % 9.2 % (4.4-11.3); NEUTROPHILS # (AUTO) 6.4 (2.1-6.9); NEUTROPHILS % 68.4 % (38.7-80.0); PLATELET COUNT 324 x10e3/uL (140-360); RED BLOOD COUNT 4.19 x10e6/uL (3.6-5.1); RED CELL DISTRIBUTION WIDTH 13.2 % (11.7-14.4)
[2018-04-01] MEDS ORDERED: ACETAMINOPHEN 650 MG SUPP PR PRN (21:00)
[2018-04-01] MEDS ORDERED: HYDRALAZINE HCL 20 MG/ML VIAL IV PRN (21:00)
--- NOTE | 2018-04-01 21:00 | NUR ---
SPOKE WITH FRITZ MARSHALL DR'S PA. NOTIFIED THIS ADMISSION AND FOR SURGERY BETHEL. NEW ORDERS RECEIVED.
--- NOTE | 2018-04-01 21:01 | NUR ---
FRITZ MARSHALL NOTIFIED OF HOME MEDS. NO ORDERS TO RESUME HOME MEDS AT THIS TIME.
[2018-04-01 21:07] LABS: ANION GAP 11.5 mmol/L (8-16); CALCIUM 8.5 mg/dL (8.4-10.2); CREATININE, SERUM 0.89 mg/dL (0.57-1.11); POTASSIUM 3.5 mmol/L (3.5-5.1)
--- NOTE | 2018-04-01 21:08 | NUR ---
PAGED AND TALKED TO DR. MCNEIL AND MADE AWARE THAT PATIENT IS HERE FOR SURGERY TOMORROW.
--- NOTE | 2018-04-01 21:35 | Diagnostic Imaging Report ---
FOOT RIGHT COMPLETE HISTORY: Osteomyelitis. COMPARISON: Tagged RBC study 03/21/2018, right foot MRI 02/08/2018 FINDINGS: Bones: Amputation of the second toe at the level of the metatarsal phalangeal joint. No acute displaced fracture. No definite erosions. Calcaneal enthesopathic changes. Joints: Stable severe hallux valgus deformity with degenerative arthrosis. Soft tissues: Soft tissue ulceration and swelling along the first metatarsal phalangeal joint. IMPRESSION: No definite radiographic evidence of osteomyelitis. Consider short-term follow-up radiograph in the setting of continued poor wound healing, or MRI for further evaluation. Signed by: DR. Allen Huddleston MD on 04/01/2018 9:31 PM
--- NOTE | 2018-04-01 22:00 | NUR ---
PATIENT WAS INSTRUCTED REGARDING NPO AFTER MIDNIGHT
--- NOTE | 2018-04-01 22:15 | NUR ---
IV STARTED ORDERED.
[2018-04-01] MEDS: SODIUM CHLORIDE 0.9% 1000ML 1,000 ML IV SCH (22:30)
[2018-04-01] MEDS: PIPER-TAZ 3.375 GM 50 ML IV SCH (22:37)
[2018-04-01] MEDS: VANCOMYCIN 1GM/NS 250 ML 250 ML IV SCH (23:20)
[2018-04-02] VITALS (10 sets, daily range): BP systolic 103–171; BP diastolic 57–72
[2018-04-02] MEDS: PIPER-TAZ 3.375 GM 50 ML IV SCH ×4 (03:43→21:45)
[2018-04-02] MEDS ORDERED: ONDANSETRON HCL INJ 2MG/ML 2ML 2 MG/ML VIAL IV PRN (06:45)
[2018-04-02] MEDS ORDERED: HYDRALAZINE HCL 20 MG/ML VIAL IV PRN (06:45)
[2018-04-02 07:12] LABS: BASOPHILS % 0.5 % (0.0-1.0); EOSINOPHILS # (AUTO) 0.5 (0.0-0.4); EOSINOPHILS % 6.1 % (0.0-6.0); HEMATOCRIT 38.4 % (34.2-44.1); HEMOGLOBIN 12.6 g/dL (12.0-16.0); LYMPHOCYTES # (AUTO) 1.7 (1.0-3.2); LYMPHOCYTES % 21.8 % (18.0-39.1); MEAN CORPUSCULAR HEMOGLOBIN 28.1 pg (28-32); MEAN CORPUSCULAR HGB CONC 32.8 g/dL (31-35); MEAN CORPUSCULAR VOLUME 85.5 fL (81-99); MONOCYTES # (AUTO) 0.7 (0.2-0.8); MONOCYTES % 8.6 % (4.4-11.3); NEUTROPHILS % 62.6 % (38.7-80.0); PLATELET COUNT 324 x10e3/uL (140-360); RED BLOOD COUNT 4.49 x10e6/uL (3.6-5.1); RED CELL DISTRIBUTION WIDTH 13.2 % (11.7-14.4)
[2018-04-02] MEDS ORDERED: FAMOTIDINE 20 MG/2 ML VIAL IV SCH (07:30)
[2018-04-02 07:42] LABS: ANION GAP 12.4 mmol/L (8-16); BLOOD UREA NITROGEN 17 mg/dL (7-26); BUN/CREATININE RATIO 21 (6-25); CALCIUM 8.5 mg/dL (8.4-10.2); CARBON DIOXIDE 26 mmol/L (22-29); CHLORIDE 105 mmol/L (98-107); EST GLOMERULAR FILTRATION RATE > 60 ML/MIN (60-); GLUCOSE 107 mg/dL (74-118); MAGNESIUM 2.5 MG/DL (1.3-2.1); POTASSIUM 3.4 mmol/L (3.5-5.1); SODIUM 140 mmol/L (136-145)
[2018-04-02 08:00] LABS: FREE T4 (FREE THYROXINE) 1.15 ng/dL (0.9-1.8); THYROID STIMULATING HORMONE 1.066 uIU/mL (0.350-4.940)
[2018-04-02 08:20] LABS: B-TYPE NATRIURETIC PEPTIDE2 377.8 pg/mL (0-100)
[2018-04-02] MEDS: METOPROLOL TARTRATE 25 MG TAB PO SCH ×2 (09:00→17:11)
[2018-04-02] MEDS ORDERED: ATORVASTATIN 20 MG TAB PO SCH (09:00)
[2018-04-02] MEDS: AMLODIPINE BESYLATE 5 MG TAB PO SCH (09:00)
[2018-04-02] MEDS: HYDROCHLOROTHIAZIDE 25 MG TAB PO SCH (09:00)
[2018-04-02] MEDS: ASPIRIN 81 MG ENTERIC COATED PO SCH (09:00)
[2018-04-02] MEDS: PANTOPRAZOLE SOD 40 MG TABEC PO SCH (09:00)
[2018-04-02] MEDS: LOSARTAN POTASSIUM 25 MG TAB PO SCH (09:00)
[2018-04-02] MEDS ORDERED: BACITRACIN 50,000 UNIT VIAL ONE (10:44)
[2018-04-02] MEDS ORDERED: BUPIVACAINE HCL 0.5% 10ML MPF VIAL INJ ONE (11:14)
--- NOTE | 2018-04-02 14:37 | Operative Report ---
DATE OF PROCEDURE: April 02, 2018 PREOPERATIVE DIAGNOSIS: Right 1st metatarsal osteomyelitis. POSTOPERATIVE DIAGNOSIS: Right 1st metatarsal osteomyelitis. PLANNED PROCEDURE: Right partial 1st ray amputation. CLAIM TECHNICIAN: None. ANESTHESIA: MAC with a local block consisting of 15 mL of 0.5% Marcaine plain. HEMOSTASIS: Esmarch tourniquet applied for approximately 20 minutes. MATERIALS: 3-0 nylon. ESTIMATED BLOOD LOSS: Less than 10 mL. PATHOLOGY: Right hallux right 1st metatarsal. Anaerobic, aerobic cultures. PROCEDURE IN DETAIL: Patient was seen in the preoperative waiting room where the correct procedure and site were identified. The patient was brought into the operating room, placed on the operating table in supine position. General anesthesia was initiated at this time. The right foot, ankle, leg was then scrubbed, prepped and draped in the usual aseptic manner. The right foot, ankle, leg was exsanguinated with an Esmarch bandage and the Esmarch tourniquet was applied for a tourniquet for approximately 20 minutes. Attention was directed to the distal medial aspect of the patient's right 1st metatarsal where the majority of the 1st metatarsal head was exposed through an ulceration. The bone was noted to be necrotic. There was mild purulent drainage. There was erythema to the periwound. The decision was made to proceed with a partial 1st ray amputation. Utilizing semi-elliptical converging incisions over the 1st metatarsophalangeal joint extending over the wound and along the medial aspect of the 1st metatarsal shaft. The distal aspect of the 1st metatarsal was clamped. The incision was carried down to the level of the metatarsophalangeal joint and the hallux was disarticulated and passed off to the back table. At this time, wound cultures were taken. The dissection was carried down to allow for good visualization of the 1st metatarsal head, which was noted to be soft and necrotic. Utilizing a sagittal saw, the 1st metatarsal head was resected and passed off to the back table. Next, the sesamoid apparatus was also dissected and disarticulated and passed off to the back table. The wound was then flushed with copious amounts of sterile saline mixed with bacitracin 3 liters, utilizing a Pulsavac. The remaining edges were prepped for closure by removing all dog ears and debulking fat. The skin was reapproximated utilizing simple interrupted sutures with 3-0 nylon. The incision site was then dressed with Adaptic, Betadine-soaked 4 x 4's, dry 4 x 4's, Kerlix, Ha wrap, and a postop shoe. Patient tolerated procedure and anesthesia well. Patient was transferred to the postoperative recovery unit with vital signs stable and vascular status intact. The patient was monitored there for a short period of time before being readmitted for postoperative pain control, monitoring and IV antibiotics. The podiatry service will continue to monitor as an inpatient. Discussed with patient and patient's son that due to severe peripheral vascular disease, there is a likelihood of delayed or nonhealing ulceration. Patient and patient's family understand. The prognosis is guarded. Job#: [id number] KEVIN
--- NOTE | 2018-04-02 15:45 | NUR ---
Visit made by the Spiritual Care Department Pastoral Visitor, Aysha Carty. Pt sleeping soundly and no family present. Pastoral Visitor left a card describing availability of glass or mirror inspector and instructions on how to contact a glass or mirror inspector. CLAY DONATO Video Operator Spiritual Care Department O: [phone] Pager: [phone] ([phone] number calling from)
[2018-04-02] MEDS: SODIUM CHLORIDE 0.9% 1000ML 1,000 ML IV SCH (17:00)
[2018-04-02] MEDS: ACETAMINOPHEN 325 MG TAB PO PRN (17:19)
[2018-04-02] MEDS ORDERED: FENTANYL CITRATE/PF 100MCG/2 ML INJ ONE (18:05)
--- NOTE | 2018-04-02 19:35 | NUR ---
RECEIVED THE PT IN REPORT.AAOX3.NO RESP.DISTRESS.NO PAIN VOICED.DRESSING SITE IS DRY AND INTACT.RT.FOOT IS ELEVATED ON TH PILLOW.BED ALARM IS ON.BED LOCKED AND IN LOWEST POSITION.PHONE AND CALL LIGHT WITHIN REACH.INSTRUCTED TO CALL FOR ASSISTANCE NEEDED.
[2018-04-02] MEDS ORDERED: LIDOCAINE HCL 2% LOCAL INJ 5 ML SDV VIAL INJ ONE (20:04)
[2018-04-02] MEDS ORDERED: PROPOFOL IV EMULSION 10 MG/ML 20 ML VIAL ONE (20:04)
[2018-04-02] MEDS: ATORVASTATIN 20 MG TAB PO SCH (22:00)
[2018-04-02] MEDS: GABAPENTIN 100 MG CAP PO SCH (22:00)
[2018-04-02] MEDS: VANCOMYCIN 1GM/NS 250 ML 250 ML IV SCH (22:20)
[2018-04-03] VITALS: BP 124/56
--- NOTE | 2018-04-03 00:10 | NUR ---
NEW IV STATRED @ [facility] #[id number].PATENT.VOIDED IN THE BED [place].PT IS RESTING IN THE BED.
[2018-04-03] MEDS: PIPER-TAZ 3.375 GM 50 ML IV SCH ×4 (03:25→21:23)
[2018-04-03 03:54] LABS: BASOPHILS # (AUTO) 0.1 (0.0-0.1); BASOPHILS % 0.7 % (0.0-1.0); EOSINOPHILS # (AUTO) 0.5 (0.0-0.4); EOSINOPHILS % 5.9 % (0.0-6.0); HEMOGLOBIN 11.7 g/dL (12.0-16.0); LYMPHOCYTES # (AUTO) 1.5 (1.0-3.2); LYMPHOCYTES % 17.9 % (18.0-39.1); MEAN CORPUSCULAR HEMOGLOBIN 27.7 pg (28-32); MEAN CORPUSCULAR HGB CONC 32.5 g/dL (31-35); MEAN CORPUSCULAR VOLUME 85.3 fL (81-99); MONOCYTES # (AUTO) 0.8 (0.2-0.8); MONOCYTES % 9.6 % (4.4-11.3); NEUTROPHILS # (AUTO) 5.5 (2.1-6.9); NEUTROPHILS % 65.5 % (38.7-80.0); PLATELET COUNT 290 x10e3/uL (140-360); RED BLOOD COUNT 4.22 x10e6/uL (3.6-5.1); RED CELL DISTRIBUTION WIDTH 13.2 % (11.7-14.4)
[2018-04-03 04:00] VITALS: BP 130/60
--- NOTE | 2018-04-03 04:04 | NUR ---
Blood drawn from right ac and sent to the lab.pt tolerated well.
[2018-04-03 04:17] LABS: ANION GAP 10.7 mmol/L (8-16); BLOOD UREA NITROGEN 11 mg/dL (7-26); BUN/CREATININE RATIO 14 (6-25); CALCIUM 8.2 mg/dL (8.4-10.2); CARBON DIOXIDE 25 mmol/L (22-29); CHLORIDE 106 mmol/L (98-107); CREATININE, SERUM 0.79 mg/dL (0.57-1.11); EST GLOMERULAR FILTRATION RATE > 60 ML/MIN (60-); GLUCOSE 91 mg/dL (74-118); MAGNESIUM 1.8 MG/DL (1.3-2.1); POTASSIUM 3.7 mmol/L (3.5-5.1); SODIUM 138 mmol/L (136-145)
--- NOTE | 2018-04-03 06:50 | NUR ---
REPORT GIVEN TO THE ONCOMING RN.WALKING ROUNDS DONE.STABLE CONDITION.
[2018-04-03 08:00] VITALS: BP 138/65
--- NOTE | 2018-04-03 08:05 | NUR ---
rechecked Temp-98.8, patient resting in bed, alert with no distress, right foot dressing is intact ,pain 2/10, call light in reach
[2018-04-03] MEDS: HYDROCHLOROTHIAZIDE 25 MG TAB PO SCH (08:51)
[2018-04-03] MEDS: PANTOPRAZOLE SOD 40 MG TABEC PO SCH (08:51)
[2018-04-03] MEDS: AMLODIPINE BESYLATE 5 MG TAB PO SCH (08:51)
[2018-04-03] MEDS: ASPIRIN 81 MG ENTERIC COATED PO SCH (08:51)
[2018-04-03] MEDS: METOPROLOL TARTRATE 25 MG TAB PO SCH ×2 (08:51→17:12)
[2018-04-03] MEDS: LOSARTAN POTASSIUM 25 MG TAB PO SCH (08:51)
--- NOTE | 2018-04-03 08:59 | Progress Note ---
DATE: April 03, 2018 SUBJECTIVE: This is an 87-year-old female with a past medical history of hypertension and peripheral vascular disease, who is postoperative day 1 right partial 1st ray amputation. Patient currently relates to no nausea, vomiting, fever, chills, chest pain or shortness of breath. No acute issues overnight. She is seen resting comfortably at bedside. OBJECTIVE GENERAL: Alert and oriented x3, in no apparent distress. VITAL SIGNS: Today temperature is 98.8, heart rate 76, respiratory rate 18, blood pressure 93% on nasal cannula. VASCULAR: Dorsalis pedis and posterior tibial pulses are faintly palpable. Capillary refill time is less than 3 seconds to the stump site. Minimal erythema, edema and warmth are noted to the bilateral lower extremities. NEUROLOGICAL: Sensation is absent to light touch bilateral. MUSCULOSKELETAL: Right partial 1st ray resection, right 2nd digit amputation, left partial 1st ray resection. DERMATOLOGICAL: Incision site is noted to the right foot amputation site partial 1st ray. Sutures are in place and intact. No evidence of wound dehiscence. No local acute signs of infection. No drainage. LABS: White blood cell count is 8.4, hemoglobin 11.7, hematocrit 36.0, platelet count 290. Sodium 138, potassium 3.7, chloride 106, CO2 is 25, BUN 11, creatinine 0.79. ASSESSMENT 1. Right foot osteomyelitis, status post partial 1st ray amputation. 2. Peripheral vascular disease, status post bilateral angioplasties. 3. Hypertension. PLAN: Patient was seen and evaluated. Discussed condition and treatment options with the patient in detail. A dry sterile dressing change was performed at the patient's bedside today with Betadine wet to dry. The wound appears clean, dry and intact with no local acute signs of infection. Discussed with patient and son yesterday. Patient lives at home with family who will be able to take care of her. Would recommend waiting for culture and sensitivities, to be discharged on p.o. antibiotics with the next 1 to 2 days. Current cultures show gram-negative rods. Sensitivities are pending. Podiatry service will continue to follow as an inpatient. Job#: [id number]
--- NOTE | 2018-04-03 09:52 | NUR ---
CASE MANAGEMENT INITIAL ASSESSMENT Manager Clinical Informatics to bedside to discuss plan of care with patient/family. CM/SW role and care transitions discussed. Anticipated discharge plan discussed along with duration of care. CM discussed patients right to make decisions in care. CM/SW work hours given. Patient lives: PATIENT LIVES IN [facility] [place] [facility] Admit/Transfer: ED POA/Emergency contact: Current/Previous Home Health: NONE PCP/Follow-up Care: DR. BEKAH RUBALCAVA Current/Previous DME: WHEEL CHAIR AND ROLLATOR Other Services: PATIENT WITH PROVIDER 7 DAYS A WEEK Employment Status: RETIRED Areas of Concerns: MOBILITY POST PROCEDURE Referral Needs: POSSIBLE INPATIENT REHAB PER FAMILY REQUEST Education Needs: NON- WEIGHTBEARING STATUS IMM/MCALLISTER given and signed (if applicable): IMM Goal for discharge: DISCHARGE HOME WITH HOME HEALTH VS [facility] PER FAMILY REQUEST CM left business card at the bedside with contact information. Name and number was also written on the patients whiteboard. Patient verbalized understanding of discussion. CM will follow-up with ongoing discharge and transition of care needs.
[2018-04-03 11:43] VITALS: BP 138/65
[2018-04-03] MEDS: ACETAMINOPHEN 325 MG TAB PO PRN (11:48)
[2018-04-03 12:00] VITALS: BP 112/53
--- NOTE | 2018-04-03 14:29 | NUR ---
CM SPOKE TO PATIENT AT BEDSIDE REGARDING IMM LETTER. IMM LETTER GIVEN WITH EXPLANATION. ORIGINAL SIGNED AND PLACED IN CHART; COPY OF ORIGINAL DOCUMENT GIVEN TO PATIENT AT BEDSIDE AND PLACED IN CARE TRANSITION FOLDER. CM CONTACT INFORMATION GIVEN TO PATIENT FOR ANY NEEDS OR CONCERNS. PATIENT WITH NO FURTHER QUESTIONS
[2018-04-03] MEDS: SODIUM CHLORIDE 0.9% 1000ML 1,000 ML IV SCH (14:30)
--- NOTE | 2018-04-03 14:34 | NUR ---
CM SPOKE TO PATIENT AT BEDSIDE REGARDING INFORMATION PERTAINING TO HOME HEALTH VS REHAB SERVICES. PATIENT STATES SHE DOES NOT MIND EITHER CHOICE BUT WOULD LIKE FOR PHYSICAL THERAPY TO EVALUATE THEN GIVE RECOMMENDATIONS. CM TO FOLLOW UP WITH PHYSICAL THERAPIST, ONCE THEY EVALUATE PATIENT, TO DETERMINE PROPER PLACEMENT.
[2018-04-03] MEDS: OYST-CAL-D 500MG TABLET PO SCH (17:12)
--- NOTE | 2018-04-03 18:11 | NUR ---
patient resting in bed, dressing is intact, denies any pain, stable
--- NOTE | 2018-04-03 19:30 | NUR ---
PATIENT RECEIVED. PATIENT IS RESTING IN BED, AAOX3. RESP EVEN AND UNLABORED. NO ACUTE DISTRESS NOTED. RIGHT FOOT DRESSING NOTED, DRY AND INTACT. PATIENT DENIES OF ANY PAIN. FAMILY AT BED SIDE. CALL LIGHT WITHIN REACH. INSTRUCT TO CALL FOR ASSISTANCE. BED LOW/LOCKED. CONTINUE TO MONITOR CLOSELY
[2018-04-03 20:00] VITALS: BP 144/65
[2018-04-03] MEDS: ATORVASTATIN 20 MG TAB PO SCH (21:23)
[2018-04-03] MEDS: GABAPENTIN 100 MG CAP PO SCH (21:23)
[2018-04-03] MEDS: VANCOMYCIN 1GM/NS 250 ML 250 ML IV SCH (22:01)
[2018-04-04] VITALS (7 sets, daily range): BP systolic 119–172; BP diastolic 58–72
[2018-04-04] MEDS: PIPER-TAZ 3.375 GM 50 ML IV SCH ×4 (03:03→21:22)
[2018-04-04 04:04] LABS: BASOPHILS % 0.4 % (0.0-1.0); EOSINOPHILS # (AUTO) 0.7 (0.0-0.4); EOSINOPHILS % 7.7 % (0.0-6.0); HEMATOCRIT 36.4 % (34.2-44.1); HEMOGLOBIN 11.7 g/dL (12.0-16.0); LYMPHOCYTES # (AUTO) 1.6 (1.0-3.2); LYMPHOCYTES % 18.3 % (18.0-39.1); MEAN CORPUSCULAR HEMOGLOBIN 27.3 pg (28-32); MEAN CORPUSCULAR HGB CONC 32.1 g/dL (31-35); MONOCYTES # (AUTO) 0.8 (0.2-0.8); MONOCYTES % 8.6 % (4.4-11.3); NEUTROPHILS # (AUTO) 5.8 (2.1-6.9); NEUTROPHILS % 64.6 % (38.7-80.0); PLATELET COUNT 284 x10e3/uL (140-360); RED BLOOD COUNT 4.28 x10e6/uL (3.6-5.1); RED CELL DISTRIBUTION WIDTH 13.1 % (11.7-14.4)
[2018-04-04 04:25] LABS: ANION GAP 10.4 mmol/L (8-16); BLOOD UREA NITROGEN 8 mg/dL (7-26); BUN/CREATININE RATIO 11 (6-25); CALCIUM 8.4 mg/dL (8.4-10.2); CARBON DIOXIDE 24 mmol/L (22-29); CHLORIDE 108 mmol/L (98-107); CREATININE, SERUM 0.75 mg/dL (0.57-1.11); EST GLOMERULAR FILTRATION RATE > 60 ML/MIN (60-); GLUCOSE 86 mg/dL (74-118); MAGNESIUM 1.6 MG/DL (1.3-2.1); POTASSIUM 3.4 mmol/L (3.5-5.1); SODIUM 139 mmol/L (136-145)
[2018-04-04] MEDS ORDERED: POTASSIUM CHLORIDE 20 MEQ TAB CR PO STA (08:02)
--- NOTE | 2018-04-04 08:02 | NUR ---
patient resting in bed, Alert with no distress, denies any pain this time, call light in reach, keep monitoring, bed alarm ON
[2018-04-04] MEDS: LOSARTAN POTASSIUM 25 MG TAB PO SCH (09:08)
[2018-04-04] MEDS: ASPIRIN 81 MG ENTERIC COATED PO SCH (09:08)
[2018-04-04] MEDS: METOPROLOL TARTRATE 25 MG TAB PO SCH ×2 (09:09→16:48)
[2018-04-04] MEDS: PANTOPRAZOLE SOD 40 MG TABEC PO SCH (09:09)
[2018-04-04] MEDS: HYDROCHLOROTHIAZIDE 25 MG TAB PO SCH (09:09)
[2018-04-04] MEDS: OYST-CAL-D 500MG TABLET PO SCH ×2 (09:09→16:48)
[2018-04-04] MEDS: AMLODIPINE BESYLATE 5 MG TAB PO SCH (09:09)
--- NOTE | 2018-04-04 13:50 | NUR ---
CM SPOKE TO PATIENT AND PATIENT SON REGARDING PLAN OF CARE AND DISCHARGE PLANNING. PATIENT AND PATIENT FAMILY INFORMED THAT WE ARE PENDING ANOTHER PHYSICAL THERAPY NOTE TO DETERMINE PROPER PLACEMENT. FAMILY PREFERS [facility] BUT WAS INFORMED OF REQUIREMENTS TO QUALIFY FOR REHAB PLACEMENT. PATIENT AND PATIENT FAMILY VERBALLY UNDERSTOOD. CM REITERATED PLAN OF CARE TO WAIT FOR PT NOTE FOR PLACEMENT RECOMMENDATIONS AND FOLLOW UP WITH MD. PATIENT RESTATED PLAN OF CARE FOR CLARIFICATION CORRECTLY. CM INFORMED TO CALL JASON RENTERIA- PATIENT SON AND [place], WHEN IN PATIENT ROOM DISCUSSING DISCHARGE PLAN. CM TO FOLLOW UP. JASON RENTERIA: [phone]
[2018-04-04] MEDS: SODIUM CHLORIDE 0.9% 1000ML 1,000 ML IV SCH (15:23)
--- NOTE | 2018-04-04 17:15 | NUR ---
Nutrition Intervention Note RD Recommendation(s) for Physician: -Continue cardiac diet as ordered -Rec MVi w/ minerals and vitamin C for wound healing -Rec Ensure compact BID to promote protein-calorie intake -Rec wound care consult for stage II wound on R buttock Plan of Care: RD following, monitoring for tolerance and adequacy Nutrition reason for involvement: Diagnosis pressure ulcer II RD Assessment 04/04/2018- Chart reviewed. 87yo F, who is postoperative day 2 right partial 1st ray amputation. K was repleted. HbA1c at 6.1%. Visited pt in the room. Pt reports good appetite with ~100% recorded meal intake. No GI complains noted. LBM 04/04, after laxatives were given. Pt denies any chewing or swallowing difficulty. Pt reports of 10lbs weight loss in 2 months due to decreased meal intake. Minimal fat loss noted upon NFPA. Communicated RD recommendation to ROBBIN [place]. Will continue to monitor and follow. Principal Problems/Diagnoses: 1. Right foot osteomyelitis, status post partial 1st ray amputation. 2. Peripheral vascular disease, status post bilateral angioplasties. PMH: hypertension and peripheral vascular disease GI: LBM 04/04 Skin: stage II wound on R buttock Labs: (04/04) K 3.4 L Meds: Oscal, IVF, protonix, diuretics Ht: 62in Wt: 129.31lb BMI: 23.7kg/m2 IBW: 110lb Malnutrition Evaluation (04/04/18) The patient meets criteria for MODERATE protein-calorie malnutrition. Energy intake: <75% of estimated energy requirements for >1 month Weight loss: 7.5% in 3 months (Acute) Fat loss: Mild protrusion of clavicle Muscle loss: None Supporting Evidence: Fluid accumulation: unable to evaluate Functional Status: no changes Nutrition Prescription (Diet Order): cardiac diet Estimated Nutritional Needs: Calories: 1475 1770kcal(25-30kcal/kg/d) Weight used : Actual BW Protein : 59 89g (1-1.5g/kg/d) Weight used: Actual BW Diet Adequacy: Meeting calorie needs, Not meeting protein needs Diet Education Needs Assessment: Diet education not indicated; patient on regular diet. Nutrition Care Level: low Nutrition Diagnosis: Increased protein needs related to altered skin integrity as evidenced by stage II pressure wound. Goal: Patient will meet 75-100% of estimated needs by follow up Progress: Progressing Interventions: Mineral-modified diet, Commercial beverage, Multivitamin/mineral supplement therapy Monitoring/Evaluation: Total energy intake, Total protein intake, Modified diet, Liquid supplement, Weight change Signed: Erika Geller MS, RD, LD
[2018-04-04] MEDS: ATORVASTATIN 20 MG TAB PO SCH (21:22)
[2018-04-04] MEDS: GABAPENTIN 100 MG CAP PO SCH (21:22)
--- NOTE | 2018-04-04 22:48 | NUR ---
PATIENT RECEIVED. PATIENT IS RESTING IN BED, AAOX3. RESP EVEN AND UNLABORED. NO ACUTE DISTRESS NOTED. RIGHT FOOT DRESSING NOTED, DRY AND INTACT. PATIENT DENIES OF ANY PAIN. CALL LIGHT WITHIN REACH. INSTRUCT TO CALL FOR ASSISTANCE. BED LOW/LOCKED. CONTINUE TO MONITOR CLOSELY
[2018-04-05] VITALS: BP 104/53
[2018-04-05] MEDS: PIPER-TAZ 3.375 GM 50 ML IV SCH ×3 (03:23→15:10)
[2018-04-05 04:00] VITALS: BP 156/67
[2018-04-05] MEDS: SODIUM CHLORIDE 0.9% 1000ML 1,000 ML IV SCH (04:46)
[2018-04-05 05:13] LABS: BASOPHILS % 0.6 % (0.0-1.0); EOSINOPHILS # (AUTO) 0.8 (0.0-0.4); EOSINOPHILS % 11.2 % (0.0-6.0); HEMATOCRIT 32.6 % (34.2-44.1); HEMOGLOBIN 11.2 g/dL (12.0-16.0); LYMPHOCYTES # (AUTO) 1.6 (1.0-3.2); LYMPHOCYTES % 21.9 % (18.0-39.1); MEAN CORPUSCULAR HEMOGLOBIN 28.9 pg (28-32); MEAN CORPUSCULAR HGB CONC 34.4 g/dL (31-35); MONOCYTES # (AUTO) 0.7 (0.2-0.8); MONOCYTES % 10.1 % (4.4-11.3); NEUTROPHILS # (AUTO) 4.1 (2.1-6.9); NEUTROPHILS % 55.6 % (38.7-80.0); PLATELET COUNT 251 x10e3/uL (140-360); RED BLOOD COUNT 3.88 x10e6/uL (3.6-5.1); RED CELL DISTRIBUTION WIDTH 13.2 % (11.7-14.4)
[2018-04-05 05:28] LABS: ANION GAP 9.4 mmol/L (8-16); BLOOD UREA NITROGEN 9 mg/dL (7-26); BUN/CREATININE RATIO 12 (6-25); CALCIUM 8.2 mg/dL (8.4-10.2); CARBON DIOXIDE 26 mmol/L (22-29); CHLORIDE 108 mmol/L (98-107); CREATININE, SERUM 0.78 mg/dL (0.57-1.11); EST GLOMERULAR FILTRATION RATE > 60 ML/MIN (60-); GLUCOSE 100 mg/dL (74-118); MAGNESIUM 1.8 MG/DL (1.3-2.1); POTASSIUM 3.4 mmol/L (3.5-5.1); SODIUM 140 mmol/L (136-145)
[2018-04-05 07:45] VITALS: BP 128/60
[2018-04-05 08:00] VITALS: BP 128/60
[2018-04-05] MEDS: ASPIRIN 81 MG ENTERIC COATED PO SCH (09:05)
[2018-04-05] MEDS: HYDROCHLOROTHIAZIDE 25 MG TAB PO SCH (09:05)
[2018-04-05] MEDS: LOSARTAN POTASSIUM 25 MG TAB PO SCH (09:05)
[2018-04-05] MEDS: OYST-CAL-D 500MG TABLET PO SCH (09:06)
[2018-04-05] MEDS: METOPROLOL TARTRATE 25 MG TAB PO SCH (09:06)
[2018-04-05] MEDS: PANTOPRAZOLE SOD 40 MG TABEC PO SCH (09:06)
[2018-04-05] MEDS: AMLODIPINE BESYLATE 5 MG TAB PO SCH (09:06)
--- NOTE | 2018-04-05 09:16 | Progress Note ---
DATE: April 05, 2018 SUBJECTIVE: This is an 87-year-old female with past medical history of peripheral vascular disease, postoperative day 3 right partial first ray amputation. Patient currently relates no nausea, vomiting, fever, chills, chest pain, or shortness of breath. No acute issues overnight. Denies any pain to her right foot. She is seen resting comfortably at bedside. OBJECTIVE: GENERAL: Alert and oriented x3, in no apparent distress. VITAL SIGNS: Today, temperature 96.8, heart rate 68, respiratory rate 18, blood pressure 156/67, pulse ox is 98% on room air. PROBLEM-FOCUSED LOWER EXTREMITY PHYSICAL EXAMINATION: VASCULAR: Dorsalis pedis and posterior tibial pulses are faintly palpable. Capillary refill time is 3 seconds to the stump site. Negative erythema, edema. Minimal warmth is noted to bilateral lower extremities. NEUROLOGICAL: Sensation is absent to light touch bilateral. MUSCULOSKELETAL: Right partial first ray resection and right second digit amputation, left partial first ray resection. DERMATOLOGICAL: Incision site is noted to the right foot amputation site. Sutures are in place and intact. No evidence of wound dehiscence. No locally acute signs of infection. Negative drainage. LABS: White blood cell count is 7.26, hemoglobin 11.2, hematocrit 32.6, platelet count is 251,000. Sodium 140, potassium 3.4, chloride 108, CO2 26, BUN 9, creatinine 0.78. MICROBIOLOGY: Pseudomonas and a gram-negative whitney. ASSESSMENT: 1. Right foot osteomyelitis, status post partial first ray amputation. 2. Peripheral vascular disease, status post bilateral angioplasties. 3. Hypertension. PLAN: Patient was seen and evaluated. Discussed condition and treatment options with patient in detail. Dry sterile dressing change was performed to the patient's bedside today with Betadine wet-to-dry. Wound is clean, dry, and intact. No locally acute signs of infection. I discussed with patient's son yesterday that patient lives at home and would now prefer to be transferred to a SNF or an LTAC for postoperative monitoring, antibiotics, and local wound care. Discussed case with the primary team who is working on disposition for discharge. Podiatry service will continue to monitor as an inpatient. Job#: [id number]
[2018-04-05] MEDS ORDERED: POTASSIUM CHLORIDE 20 MEQ TAB CR PO STA (10:37)
[2018-04-05] MEDS ORDERED: Calcium Carbonate PO (10:47)
[2018-04-05] MEDS ORDERED: ZOSYN IV (10:47)
--- NOTE | 2018-04-05 10:54 | NUR ---
CM SPOKE TO PATIENT, PATIENT SON- XI, AND PATIENT SON JASON REGARDING SENIOR CARE ORDER. PATIENT AND PATIENT FAMILY INFORMED OF SNF SERVICES AND GIVEN CHOICES OF SKILLED FACILITIES. PATIENT WAS PREVIOUSLY A RESIDENT AT [facility] BUT CHOSE TO GO TO [facility]. CHOICE LETTER SIGNED BY XI AND VERBALLY AGREED BY JASON VIA TELEPHONE CONSENT [phone]. CHOICE LETTER IN CHART. [facility] INFORMED OF SKILLED CHOICE AND WILL FOLLOW UP AND SEND CLINICAL. PENDING ACCEPTANCE TO SENIOR CARE FACILITY: [facility] Address: [address], [place] [address]
--- NOTE | 2018-04-05 10:55 | NUR ---
FAXING CLINICALS TO [facility]
[2018-04-05 12:00] VITALS: BP 141/62
--- NOTE | 2018-04-05 13:12 | NUR ---
PT ACCEPTED TO [facility] [address] [facility] [place] [facility] [place] [address]. [facility] FILLED OUT PUT IN PACKET AND COPY IN CHART. IMM SIGNED FILED IN CHART WITH COPY LEFT AT BEDSIDE AND RTF GIVEN TO NURSE FOR DISCHARGE PROCESS.
--- NOTE | 2018-04-05 14:00 | NUR ---
spoke to son Riki to notify of transfer to [facility] today and agreed, received verbal consent for ambulance choice letter. son will arrive to assist in collecting patients belongings.
--- NOTE | 2018-04-05 14:17 | NUR ---
called and gave report to Catie at [facility]. patient to admit to room 158 at [facility].
[2018-04-05 15:57] VITALS: BP 139/61
--- NOTE | 2018-04-05 15:58 | NUR ---
pt d/c'd via EMS stretcher to transport to [facility]. son at bedside at time of d/c and took all of patients belongings stating he will meet patient at receiving facility. PIV in place for continuing antibiotics.
--- NOTE | 2018-04-05 16:42 | Discharge Summary ---
ADMISSION DIAGNOSES 1. Right foot wound. 2. Hypertension. 3. Hyperlipidemia. 4. Neuropathy. 5. History of cerebrovascular accident/myocardial infarction. 6. Gastroesophageal reflux disease. DISCHARGE DIAGNOSES 1. Right foot wound. 2. Hypertension. 3. Hyperlipidemia. 4. Neuropathy. 5. History of cerebrovascular accident/myocardial infarction. 6. Gastroesophageal reflux disease. HISTORY: Hypertension, hyperlipidemia, GERD, neuropathy, PAD, CVA, [place]. SURGICAL HISTORY: Right shoulder reconstruction, left carotid endarterectomy, right 2nd toe amputation. FAMILY HISTORY: Patient's son had diabetes. Patient's mother had cancer. SOCIAL HISTORY: Noncontributory. HOSPITAL COURSE: Qixcsy-ukli-rozi-old female complains of a right foot wound that she has had for months. She is unable to tell me when the wound started. She says it bleeds occasionally but denies any purulent drainage and fever. She admits to intermittent pain worse with ambulation. On admission patient had an x-ray of the right foot which showed no osteomyelitis. 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 Patient was initially started on vancomycin and Zosyn, but wound cultures came back with pseudomonas and E. coli; so, patient was discharged on Zosyn. Per patient and family request, they want her to [facility] a [facility] facility for more physical therapy. So, patient was discharged to [facility] with 10 more days of Zosyn. She will resume all other home medicines plus calcium carbonate. She will follow up with Primary Care in 1 to 2 weeks and Podiatry as discussed. Patient and both sons understand discharge instructions and agree to plan. Vital signs stable, patient afebrile. Dictated by: Yeimy Segundo NP JOSUE FELICIANO MD Job#: [id number]
== END 2018-04-05 16:04 | DRG 505 ==
LOC: MED/SURG2 18:47
PROVIDERS: ADMIT Internal Medicine; ATTEND Internal Medicine
PROC: 0Y6Q0Z0 Detachment at Left 1st Toe, Complete, Open Approach (ICD-10-PCS; principal; 2018-04-02 11:30)
DX: M86.9 Osteomyelitis, unspecified (principal); I73.9 Peripheral vascular disease, unspecified; Z86.73 Personal history of transient ischemic attack (TIA), and cerebral infarction without residual deficits; K21.9 Gastro-esophageal reflux disease without esophagitis; E78.5 Hyperlipidemia, unspecified; B96.5 Pseudomonas (aeruginosa) (mallei) (pseudomallei) as the cause of diseases classified elsewhere; B96.20 Unspecified Escherichia coli [E. coli] as the cause of diseases classified elsewhere; I10 Essential (primary) hypertension; E83.51 Hypocalcemia; I25.2 Old myocardial infarction
CPT/HCPCS: 36415; 80048; 83036; 83735; 83880; 84439; 84443; 85025; 85651; 86140; 87071; 87075; 87186; 87205; 88304; 88305; 88311; 93306; 96361; 96365; 97139; J0360; J2001; J2543; J3370; J7030

== ENCOUNTER 2018-05-19 18:44 | Inpatient (IN) | payer MEDICARE ==
[~2018-05-19] VITALS: Ht 162.6 cm; Wt 58.5 kg
[~2018-05-19 18:44] MED LIST changes: +Calcium Carbonate PO; +ZOSYN IV
--- NOTE | 2018-05-19 19:26 | NUR ---
IN AND OUT CATH USING STERILE TECHNIQUE, URINE CLOUDY, MALODOROUS, AND TEA COLORED.
[2018-05-19 19:32] LABS: BASOPHILS % 0.3 % (0.0-1.0); EOSINOPHILS # (AUTO) 0.1 (0.0-0.4); EOSINOPHILS % 0.4 % (0.0-6.0); HEMATOCRIT 39.6 % (34.2-44.1); HEMOGLOBIN 12.7 g/dL (12.0-16.0); LYMPHOCYTES # (AUTO) 2.7 (1.0-3.2); LYMPHOCYTES % 21.7 % (18.0-39.1); MEAN CORPUSCULAR HEMOGLOBIN 28.2 pg (28-32); MEAN CORPUSCULAR HGB CONC 32.1 g/dL (31-35); MONOCYTES # (AUTO) 2.2 (0.2-0.8); MONOCYTES % 17.8 % (4.4-11.3); NEUTROPHILS # (AUTO) 7.3 (2.1-6.9); NEUTROPHILS % 59.5 % (38.7-80.0); PLATELET COUNT 254 x10e3/uL (140-360); RED CELL DISTRIBUTION WIDTH 15.6 % (11.7-14.4)
[2018-05-19 19:50] LABS: ALBUMIN 2.8 g/dL (3.5-5.0); ALBUMIN/GLOBULIN RATIO 0.9 (0.8-2.0); ANION GAP 11.7 mmol/L (8-16); CALCIUM 8.9 mg/dL (8.4-10.2); CREATININE, SERUM 1.13 mg/dL (0.57-1.11); MAGNESIUM 1.8 MG/DL (1.3-2.1); POTASSIUM 3.7 mmol/L (3.5-5.1)
[2018-05-19 19:52] LABS: BILIRUBIN,URINE NEGATIVE (NEGATIVE); CLARITY,URINE CLOUDY (CLEAR); COLOR,URINE YELLOW (YELLOW); KETONES,URINE NEGATIVE (NEGATIVE); LEUKOCYTE ESTERASE ,URINE 1+ (NEGATIVE); NITRITE,URINE NEGATIVE (NEGATIVE); PROTEIN,URINE DIPSTICK 1+ (NEGATIVE); URINE UROBILINOGEN 0.2 mg/dL (0.2 - 1); WBC,URINE (MAN) >50 /HPF (0-5)
[2018-05-19 19:53] LABS: BACTERIA,URINE MANY /HPF; EPITHELIAL CELLS,URINE MANY /LPF; YEAST,URINE MANY
[2018-05-19] MEDS ORDERED: SODIUM CHLORIDE 0.9% 1000ML 1,000 ML IV ONE (20:00)
[2018-05-19] MEDS ORDERED: SODIUM CHLORIDE 0.9% 1000ML 1,000 ML ONE (20:04)
--- NOTE | 2018-05-19 20:15 | NUR ---
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
[2018-05-19 20:17] LABS: OCCULT BLOOD STOOL POSITIVE (NEGATIVE)
[2018-05-19 20:30] LABS: BAND NEUTROPHILS % (MANUAL) 17 %; EOSINOPHILS % (MANUAL) 1 % (0-7); LYMPHOCYTES % (MANUAL) 20 % (19-48); MONOCYTES % (MANUAL) 8 % (3.4-9.0); NEUTROPHILS % (MANUAL) 54 % (40-74)
[2018-05-19 20:32] LABS: PLATELET ESTIMATE ADEQUATE; PLATELET MORPHOLOGY COMMENT NORMAL
[2018-05-19] MEDS ORDERED: FAMOTIDINE 20 MG/2 ML VIAL IV STA (20:49)
[2018-05-19] MEDS ORDERED: METHYLPREDNISOLONE SOD SUCC 125 MG/2ML VIAL IV ONE (21:00)
[2018-05-19] MEDS ORDERED: DIPHENHYDRAMINE HCL INJ 50 MG/ML VIAL IV ONE (21:00)
--- NOTE | 2018-05-19 21:10 | Diagnostic Imaging Report ---
EXAM: CT Abdomen and Pelvis WITH contrast INDICATION: 3 days of nausea, vomiting and diarrhea COMPARISON: None. TECHNIQUE: Abdomen and pelvis were scanned utilizing a multidetector helical scanner from the lung base to the pubic symphysis after administration of IV contrast. Coronal and sagittal reformations were obtained. Routine protocol was performed. Scan was performed when during portal venous phase. IV CONTRAST: 100 mL of Isovue-370 ORAL CONTRAST: Water COMPLICATIONS: None RADIATION DOSE: Total DLP: 269.3 mGy*cm Estimated effective dose: (DLP x 0.015 x size factor) mSv CTDIvol has been reviewed. It is below the limits set by the Radiation Protocol Committee (RPC). FINDINGS: LINES and TUBES: None. LOWER THORAX: No acute findings. HEPATOBILIARY: No focal hepatic lesions. No biliary ductal dilation. GALLBLADDER: There are stones in the gallbladder. No wall thickening. SPLEEN: No splenomegaly. PANCREAS: No focal masses or ductal dilatation. ADRENALS: No adrenal nodules. Bilateral adrenal gland thickening likely reflecting hyperplasia. KIDNEYS/URETERS: Kidneys enhance symmetrically. No hydronephrosis. Scattered subcentimeter hypodensities in both kidneys are too small to characterize. No stones. GI TRACT: No evidence of obstruction. Circumferential colonic wall thickening, most prominent along the rectosigmoid colon with mucosal hyperenhancement. There are diverticula within the colon without evidence of diverticulitis. Appendix is not clearly identified. There is however no fat stranding or adenopathy in the right lower quadrant to suggest appendicitis. PELVIC ORGANS/BLADDER: Circumferential bladder wall thickening. Bladder underdistended. LYMPH NODES: Borderline enlarged 1 cm mesenteric node. VESSELS: There is severe atherosclerotic disease in the aorta and major arterial branches. Retroaortic left renal vein. PERITONEUM / RETROPERITONEUM: No free air or fluid. BONES: There are degenerative changes in the lumbar spine. Rightward convex curvature of the lumbar spine. SOFT TISSUES: Unremarkable. IMPRESSION: 1. Findings compatible with colitis, most prominent involving the rectosigmoid colon. 2. Circumferential bladder wall thickening may reflect cystitis. Recommend correlation with urinalysis. Signed by: DR. Allen Huddleston MD on 05/19/2018 9:07 PM
[2018-05-19] MEDS ORDERED: ONDANSETRON HCL INJ 2MG/ML 2ML 2 MG/ML VIAL IV PRN (21:45)
[2018-05-19] MEDS ORDERED: CEFEPIME 2 GM/NS 0.9% 100 ML 100 ML IV SCH (21:45)
[2018-05-19] MEDS ORDERED: ACETAMINOPHEN 325 MG TAB PO PRN (21:45)
--- NOTE | 2018-05-19 22:24 | NUR ---
PT HAS HAD NO MORE EPISODES OF STOOL, UNABLE TO COLLECT STOOL FOR CULTURE AND C-DIFF AT THIS TIME
[2018-05-19] MEDS ORDERED: FAMOTIDINE40 MG PO (23:00)
[2018-05-19] MEDS ORDERED: GABAPENTIN100 MG PO (23:00)
[2018-05-19] MEDS ORDERED: KLOR-CON M2020 MEQ PO (23:00)
[2018-05-19 23:05] VITALS: BP 143/63
[2018-05-20] VITALS (7 sets, daily range): BP systolic 119–143; BP diastolic 56–63
[2018-05-20] MEDS: SODIUM CHLORIDE 0.9% 1000ML 1,000 ML IV SCH ×2 (00:10→10:50)
[2018-05-20] MEDS ORDERED: SODIUM CHLORIDE 0.9% 50ML 50 ML ONE (06:14)
[2018-05-20] MEDS ORDERED: IOPAMIDOL 370 MG/ML 200 ML INFUS..BTL INJ ONE (06:15)
[2018-05-20 07:06] LABS: BASOPHILS % 0.3 % (0.0-1.0); HEMATOCRIT 34.9 % (34.2-44.1); LYMPHOCYTES # (AUTO) 1.1 (1.0-3.2); LYMPHOCYTES % 19.3 % (18.0-39.1); MEAN CORPUSCULAR HEMOGLOBIN 27.7 pg (28-32); MEAN CORPUSCULAR HGB CONC 31.5 g/dL (31-35); MEAN CORPUSCULAR VOLUME 87.9 fL (81-99); MONOCYTES # (AUTO) 0.2 (0.2-0.8); MONOCYTES % 3.4 % (4.4-11.3); NEUTROPHILS # (AUTO) 4.5 (2.1-6.9); NEUTROPHILS % 76.3 % (38.7-80.0); PLATELET COUNT 195 x10e3/uL (140-360); RED BLOOD COUNT 3.97 x10e6/uL (3.6-5.1); RED CELL DISTRIBUTION WIDTH 15.1 % (11.7-14.4)
[2018-05-20 07:51] LABS: ALANINE AMINOTRANSFERASE 10 IU/L (0-55); ALBUMIN 2.4 g/dL (3.5-5.0); ALBUMIN/GLOBULIN RATIO 0.9 (0.8-2.0); ALKALINE PHOSPHATASE 51 IU/L (40-150); ANION GAP 9.7 mmol/L (8-16); BLOOD UREA NITROGEN 16 mg/dL (7-26); BUN/CREATININE RATIO 21 (6-25); CALCIUM 8.2 mg/dL (8.4-10.2); CARBON DIOXIDE 22 mmol/L (22-29); CHLORIDE 109 mmol/L (98-107); CREATININE, SERUM 0.77 mg/dL (0.57-1.11); EST GLOMERULAR FILTRATION RATE > 60 ML/MIN (60-); GLUCOSE 175 mg/dL (74-118); POTASSIUM 3.7 mmol/L (3.5-5.1); SODIUM 137 mmol/L (136-145)
--- NOTE | 2018-05-20 08:51 | NUR ---
IMM letter delivered and explained to pt. She verbalized understanding. Signed copy placed in chart. Copy to pt.
[2018-05-20] MEDS: CEFEPIME 2 GM/NS 0.9% 100 ML 100 ML IV SCH ×2 (10:50→22:26)
[2018-05-20] MEDS ORDERED: HYDRALAZINE HCL 20 MG/ML VIAL IV PRN (11:15)
--- NOTE | 2018-05-20 11:47 | NUR ---
WOUND CARE CONSULTATION - INITIAL EVALUATION Patient admitted from home to ER for Vomiting, Diarrhea for greater than 3 days. WBC5.92 HGB11 HCT34.9 NEUT%76.3 VFO125 ALB2.4 PATIENT VISIT: Pleasant 87 y/o F. Tunisian Speaking. Last BM yesterday. Diapered. Able to turn self with prompting. Reza Score 16 Alternating Pressure Air Mattress Open ulcer to bilateral gluteal areas. - Right Gluteal - Oval decubitus ulcer draining scant amount of sanguineous secretion. Non blanchable redness to periwound. Periwound [place] and intact. Area Dry. - Left Gluteal - Oval decubitus ulcer draining scant amount of sanguineous secretion. Non Blanchable redness to periwound. Periwound [place] and intact. Area Dry. Sacrococcygeal area no redness. No Swelling, No Erythema. IMPRESSION - 1. Right Gluteal- Stage II - PU- POA 2. Left Gluteal- Stage II - PU- POA RECOMMENDATION: 1. Right Gluteal- Stage II - PU- POA - Cleanse wound with NS and 4x4 gauze & pat dry thoroughly. - Apply Venelex Ointment and cover with Allevyn Foam Sacrum Daily. 2. Left Gluteal- Stage II - PU- POA - Cleanse wound with NS and 4x4 gauze & pat dry thoroughly. - Apply Venelex Ointment and cover with Allevyn Foam Sacrum Daily. 3. Continue Alternating Pressure Air Mattress 4. Turn and Reposition every 2 hours 5. Bilateral Heel Protectors/ Offload Heels with Pillows while in bed. Thank you for consulting with Wound Care. Addendum: 05/20/18 at 1155 by Marcelo Chong RN Amended: Links added.
[2018-05-20] MEDS: FLUCONAZOLE 200 MG/100 ML 100 ML IV SCH (13:17)
[2018-05-20] MEDS: METHYLPREDNISOLONE SOD SUCC 40 MG/ML VIAL 1ML IV SCH ×2 (13:18→21:09)
[2018-05-20] MEDS: METRONIDAZOLE 500MG/NS 100ML 100 ML IV SCH ×2 (15:31→21:09)
[2018-05-20] MEDS: METOPROLOL TARTRATE 25 MG TAB PO SCH (17:05)
[2018-05-20] MEDS: OYST-CAL-D 500MG TABLET PO SCH (17:05)
[2018-05-20] MEDS: GABAPENTIN 100 MG CAP PO SCH ×2 (17:05→21:09)
--- NOTE | 2018-05-20 19:11 | NUR ---
Report given to oncoming nurse of patient's status. Walking rounds done. NO s/s of acute distress noted.
[2018-05-21] VITALS (7 sets, daily range): BP systolic 115–134; BP diastolic 57–64
[2018-05-21] MEDS: METRONIDAZOLE 500MG/NS 100ML 100 ML IV SCH ×3 (05:42→21:40)
[2018-05-21] MEDS: METHYLPREDNISOLONE SOD SUCC 40 MG/ML VIAL 1ML IV SCH ×3 (05:42→21:40)
[2018-05-21 06:15] LABS: BASOPHILS % 0.2 % (0.0-1.0); HEMATOCRIT 34.3 % (34.2-44.1); HEMOGLOBIN 10.8 g/dL (12.0-16.0); LYMPHOCYTES # (AUTO) 0.7 (1.0-3.2); LYMPHOCYTES % 13.1 % (18.0-39.1); MEAN CORPUSCULAR HEMOGLOBIN 27.6 pg (28-32); MEAN CORPUSCULAR HGB CONC 31.5 g/dL (31-35); MEAN CORPUSCULAR VOLUME 87.5 fL (81-99); MONOCYTES # (AUTO) 0.2 (0.2-0.8); MONOCYTES % 4.1 % (4.4-11.3); NEUTROPHILS # (AUTO) 4.3 (2.1-6.9); NEUTROPHILS % 81.3 % (38.7-80.0); PLATELET COUNT 213 x10e3/uL (140-360); RED BLOOD COUNT 3.92 x10e6/uL (3.6-5.1); RED CELL DISTRIBUTION WIDTH 15.1 % (11.7-14.4)
[2018-05-21 06:32] LABS: BLOOD UREA NITROGEN 15 mg/dL (7-26); BUN/CREATININE RATIO 21 (6-25); CALCIUM 7.9 mg/dL (8.4-10.2); CARBON DIOXIDE 23 mmol/L (22-29); CHLORIDE 110 mmol/L (98-107); CREATININE, SERUM 0.71 mg/dL (0.57-1.11); EST GLOMERULAR FILTRATION RATE > 60 ML/MIN (60-); GLUCOSE 158 mg/dL (74-118); MAGNESIUM 1.7 MG/DL (1.3-2.1); SODIUM 137 mmol/L (136-145)
--- NOTE | 2018-05-21 07:03 | NUR ---
Received patient resting in bed, side rails upx2, call light within reach. Resting with eyes closed. Arousable to verbal stimuli. Respirations even and unlabored. No facial grimacing noted. Will continue to monitor.
[2018-05-21] MEDS ORDERED: PANTOPRAZOLE SOD 40 MG TABEC PO PRN (07:30)
[2018-05-21] MEDS: BALSAM PERU/CASTOR OIL 60 GM OINT...G. TP SCH (08:58)
[2018-05-21] MEDS: AMLODIPINE BESYLATE 5 MG TAB PO SCH (08:59)
[2018-05-21] MEDS: LOSARTAN POTASSIUM 25 MG TAB PO SCH (08:59)
[2018-05-21] MEDS: ATORVASTATIN 20 MG TAB PO SCH (08:59)
[2018-05-21] MEDS: OYST-CAL-D 500MG TABLET PO SCH ×2 (08:59→16:10)
[2018-05-21] MEDS: GABAPENTIN 100 MG CAP PO SCH ×3 (08:59→21:40)
[2018-05-21] MEDS: HYDROCHLOROTHIAZIDE 25 MG TAB PO SCH (08:59)
[2018-05-21] MEDS: METOPROLOL TARTRATE 25 MG TAB PO SCH ×2 (08:59→16:10)
[2018-05-21] MEDS: CEFEPIME 2 GM/NS 0.9% 100 ML 100 ML IV SCH ×2 (10:48→23:00)
[2018-05-21] MEDS: FLUCONAZOLE 200 MG/100 ML 100 ML IV SCH (11:10)
[2018-05-21] MEDS: SODIUM CHLORIDE 0.9% 1000ML 1,000 ML IV SCH ×2 (11:10→23:34)
[2018-05-21] MEDS ORDERED: FUROSEMIDE INJ 10 MG/ML 4 ML VIAL IV ONE (13:30)
--- NOTE | 2018-05-21 17:09 | NUR ---
Nutrition Intervention Note RD Recommendation(s) for Physician: -Rec advancing to GI soft diet as medically appropriate -Rec Agustin BID to support wound healing when PO is feasible -Rec MVi w/ mineral and vitamin C BID to promote wound healing Plan of Care: RD following, monitoring for tolerance and adequacy Nutrition reason for involvement: Diagnosis pressure ulcer II RD Assessment 05/21 Chart reviewed. Pt was discussed during AM rounds. 87yo F, who was admitted for vomiting and diarrhea for greater than 3 days. GI following. Orders placed to rule out C-diff. Abd/pel CT showed colitis. Currently on IV abx and NPO. 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 Pt denied chewing/swallowing problems and nausea/vomiting today. Pt reported feeling hungry. Anticipate pt able to meet nutritional need through PO intake when diet is advanced. Will cont to monitor. Please consult as needed. Principal Problems/Diagnoses: colitis PMH: hypertension and peripheral vascular disease GI: Abdomen soft, round, flatus present Skin: Right Gluteal- Stage II - PU- POA/ Left Gluteal- Stage II - PU- POA per wound care note Labs: (05/21) Glucose 158 H, Ca 7.9 L Meds: Oscal, solu-medrol, NaCl, abx, HCTZ, lipitor Ht: 64in Wt: 129lb BMI: 22.1kg/m2 IBW: 110lb Malnutrition Evaluation (05/21) The patient does not meet criteria for a specified degree of malnutrition at this time. Will re-evaluate at follow-up as appropriate. Nutrition Prescription (Diet Order): NPO Estimated Nutritional Needs: Calories: 1475 1770kcal (25-30kcal/kg/d) Weight used: Actual BW Protein : 59 89g (1-1.5g/kg/d) Weight used: Actual BW Diet Adequacy: Not meeting calorie needs, Not meeting protein needs Diet Education Needs Assessment: Diet education not indicated; patient on NPO. Nutrition Care Level: low Nutrition Diagnosis: Increased protein needs related to altered skin integrity as evidenced by stage II pressure wound. Goal: Patient will meet 75-100% of estimated needs by follow up Progress: N/A Interventions: modified diet, Multivitamin/mineral supplement therapy Monitoring/Evaluation: Total energy intake, Total protein intake, Modified diet, Weight change Signed: Erika Geller MS, RD, LD
--- NOTE | 2018-05-21 19:08 | NUR ---
Report given to oncoming nurse of patient's status. No s/s of acute distress noted. Call light within reach. Son at bedside.
[2018-05-21] MEDS ORDERED: MELATONIN 3 MG TAB PO PRN (23:00)
[2018-05-22] VITALS (7 sets, daily range): BP systolic 94–141; BP diastolic 46–63
[2018-05-22 03:33] LABS: BASOPHILS % 0.2 % (0.0-1.0); HEMATOCRIT 36.5 % (34.2-44.1); HEMOGLOBIN 11.9 g/dL (12.0-16.0); LYMPHOCYTES # (AUTO) 0.7 (1.0-3.2); LYMPHOCYTES % 7.8 % (18.0-39.1); MEAN CORPUSCULAR HEMOGLOBIN 27.9 pg (28-32); MEAN CORPUSCULAR HGB CONC 32.6 g/dL (31-35); MEAN CORPUSCULAR VOLUME 85.7 fL (81-99); MONOCYTES # (AUTO) 0.3 (0.2-0.8); MONOCYTES % 3.6 % (4.4-11.3); NEUTROPHILS # (AUTO) 7.2 (2.1-6.9); NEUTROPHILS % 86.7 % (38.7-80.0); PLATELET COUNT 217 x10e3/uL (140-360); RED BLOOD COUNT 4.26 x10e6/uL (3.6-5.1); RED CELL DISTRIBUTION WIDTH 14.9 % (11.7-14.4)
[2018-05-22 03:49] LABS: ANION GAP 10.7 mmol/L (8-16); BLOOD UREA NITROGEN 17 mg/dL (7-26); BUN/CREATININE RATIO 23 (6-25); CALCIUM 7.9 mg/dL (8.4-10.2); CARBON DIOXIDE 25 mmol/L (22-29); CHLORIDE 104 mmol/L (98-107); CREATININE, SERUM 0.75 mg/dL (0.57-1.11); EST GLOMERULAR FILTRATION RATE > 60 ML/MIN (60-); GLUCOSE 157 mg/dL (74-118); MAGNESIUM 1.6 MG/DL (1.3-2.1); SODIUM 137 mmol/L (136-145)
[2018-05-22 03:52] LABS: POTASSIUM 2.7 mmol/L (3.5-5.1)
--- NOTE | 2018-05-22 04:45 | NUR ---
K 2.7, Dr. Hernandez called and notified, orders received
[2018-05-22] MEDS ORDERED: MAGNESIUM SULF 1GRAM/DEXTROSE 100 ML IV ONE (05:15)
[2018-05-22] MEDS: METRONIDAZOLE 500MG/NS 100ML 100 ML IV SCH ×3 (05:33→22:07)
[2018-05-22] MEDS: METHYLPREDNISOLONE SOD SUCC 40 MG/ML VIAL 1ML IV SCH ×2 (05:34→21:00)
[2018-05-22] MEDS ORDERED: POTASSIUM CHLORIDE 20 MEQ TAB CR PO SCH (06:15)
[2018-05-22] MEDS: HYDROCHLOROTHIAZIDE 25 MG TAB PO SCH (08:53)
[2018-05-22] MEDS: LOSARTAN POTASSIUM 25 MG TAB PO SCH (08:53)
[2018-05-22] MEDS: OYST-CAL-D 500MG TABLET PO SCH ×2 (08:54→17:33)
[2018-05-22] MEDS: AMLODIPINE BESYLATE 5 MG TAB PO SCH (08:54)
[2018-05-22] MEDS: METOPROLOL TARTRATE 25 MG TAB PO SCH ×2 (08:54→17:33)
[2018-05-22] MEDS: SODIUM CHLORIDE 0.9% 1000ML 1,000 ML IV SCH (08:54)
[2018-05-22] MEDS: ATORVASTATIN 20 MG TAB PO SCH (08:54)
[2018-05-22] MEDS: GABAPENTIN 100 MG CAP PO SCH ×3 (08:54→21:00)
[2018-05-22] MEDS: BALSAM PERU/CASTOR OIL 60 GM OINT...G. TP SCH (08:54)
--- NOTE | 2018-05-22 10:16 | NUR ---
IMM letter delivered and explained to pt. She asked CM to call her son Antony Diaz [phone] and explain to him. CM placed call to Mr. Diaz and explained IMM to him. He verbalized understanding. Witnessed by GUERDA Fenton. Signed copy in chart. Copy to pt. GUERDA spoke with Yeimy Segundo NP regarding dc plan. States anticipate dc tomorrow.
[2018-05-22] MEDS: CEFEPIME 2 GM/NS 0.9% 100 ML 100 ML IV SCH ×2 (10:50→23:21)
[2018-05-22] MEDS: FLUCONAZOLE 200 MG/100 ML 100 ML IV SCH (11:15)
[2018-05-22 20:32] LABS: WBC,FECAL (FECAL LACTOFERRIN) POSITIVE (NEGATIVE)
[2018-05-23] VITALS (7 sets, daily range): BP systolic 125–157; BP diastolic 57–69
[2018-05-23] MEDS: PANTOPRAZOLE 40 MG 10ML VIAL IV SCH ×2 (01:42→08:49)
[2018-05-23] MEDS: METRONIDAZOLE 500MG/NS 100ML 100 ML IV SCH ×2 (05:53→13:47)
[2018-05-23 06:14] LABS: BASOPHILS # (AUTO) 0.1 (0.0-0.1); BASOPHILS % 0.9 % (0.0-1.0); EOSINOPHILS % 0.1 % (0.0-6.0); HEMATOCRIT 37.1 % (34.2-44.1); LYMPHOCYTES # (AUTO) 0.7 (1.0-3.2); LYMPHOCYTES % 4.8 % (18.0-39.1); MEAN CORPUSCULAR HEMOGLOBIN 27.9 pg (28-32); MEAN CORPUSCULAR HGB CONC 32.3 g/dL (31-35); MEAN CORPUSCULAR VOLUME 86.3 fL (81-99); MONOCYTES # (AUTO) 0.6 (0.2-0.8); NEUTROPHILS # (AUTO) 12.6 (2.1-6.9); NEUTROPHILS % 85.5 % (38.7-80.0); PLATELET COUNT 273 x10e3/uL (140-360); RED CELL DISTRIBUTION WIDTH 14.8 % (11.7-14.4)
[2018-05-23 06:38] LABS: ANION GAP 10.6 mmol/L (8-16); BLOOD UREA NITROGEN 17 mg/dL (7-26); BUN/CREATININE RATIO 23 (6-25); CALCIUM 7.9 mg/dL (8.4-10.2); CARBON DIOXIDE 21 mmol/L (22-29); CHLORIDE 107 mmol/L (98-107); CREATININE, SERUM 0.75 mg/dL (0.57-1.11); EST GLOMERULAR FILTRATION RATE > 60 ML/MIN (60-); GLUCOSE 181 mg/dL (74-118); MAGNESIUM 1.9 MG/DL (1.3-2.1); POTASSIUM 3.6 mmol/L (3.5-5.1); SODIUM 135 mmol/L (136-145)
[2018-05-23] MEDS: METOPROLOL TARTRATE 25 MG TAB PO SCH ×2 (08:47→17:24)
[2018-05-23] MEDS: BALSAM PERU/CASTOR OIL 60 GM OINT...G. TP SCH (08:47)
[2018-05-23] MEDS: GABAPENTIN 100 MG CAP PO SCH ×2 (08:47→17:24)
[2018-05-23] MEDS: OYST-CAL-D 500MG TABLET PO SCH ×2 (08:47→17:24)
[2018-05-23] MEDS: HYDROCHLOROTHIAZIDE 25 MG TAB PO SCH (08:47)
[2018-05-23] MEDS: ATORVASTATIN 20 MG TAB PO SCH (08:47)
[2018-05-23] MEDS: AMLODIPINE BESYLATE 5 MG TAB PO SCH (08:47)
[2018-05-23] MEDS: LOSARTAN POTASSIUM 25 MG TAB PO SCH (08:49)
[2018-05-23] MEDS: METHYLPREDNISOLONE SOD SUCC 40 MG/ML VIAL 1ML IV SCH (08:49)
[2018-05-23 09:25] LABS: ANISOCYTOSIS SLIGHT; HYPOCHROMASIA SLIGHT; LYMPHOCYTES % (MANUAL) 5 % (19-48); METAMYELOCYTES % (MANUAL) 2 % (0-0); MONOCYTES % (MANUAL) 3 % (3.4-9.0); NEUTROPHILS % (MANUAL) 89 % (40-74); PLATELET ESTIMATE ADEQUATE; PLATELET MORPHOLOGY COMMENT NORMAL; POIKILOCYTOSIS SLIGHT; RBC MORPHOLOGY COMMENT NORMAL
[2018-05-23] MEDS ORDERED: PREDNISONE PO (09:57)
[2018-05-23] MEDS ORDERED: CEFUROXIME500 MG PO (09:57)
[2018-05-23] MEDS ORDERED: FLUCONAZOLE100 MG PO (09:57)
[2018-05-23] MEDS ORDERED: METRONIDAZOLE500 MG PO (09:57)
[2018-05-23] MEDS: CEFEPIME 2 GM/NS 0.9% 100 ML 100 ML IV SCH (11:06)
--- NOTE | 2018-05-23 11:08 | NUR ---
attempt made to notify jose Hardy of pending d/c, no answer. left voicemail to return call.
[2018-05-23] MEDS: FLUCONAZOLE 200 MG/100 ML 100 ML IV SCH (12:07)
[2018-05-23] MEDS: SODIUM CHLORIDE 0.9% 1000ML 1,000 ML IV SCH (13:48)
--- NOTE | 2018-05-23 15:31 | NUR ---
GUERDA SPOKE TO KYUNG REPRESENTATIVE LOPEZ, SHE IS IN HOUSE SPEAKING WITH PATIENT SON XI AT BEDSIDE. MOT INITIATED AND PLACED ON THE CHART. TECHNICAL BUSINESS SYSTEMS ANALYST ALCON AND BEDSIDE RN VERNON NOTIFIED.
--- NOTE | 2018-05-23 17:45 | NUR ---
spoke to Katya Nurse at [facility] that will be receiving this patient to room 2030, report given. son at patients bedside also notified of room number pt will go to and agreed. awaiting ambulance transfer.
--- NOTE | 2018-05-24 02:29 | Discharge Summary ---
ADMISSION DIAGNOSES: Colitis, gastrointestinal bleed, hypertension, hyperlipidemia, hypocalcemia, gastroesophageal reflux disease, neuropathy, bilateral buttocks stage II decubitus ulcers, and urinary tract infection with funguria. DISCHARGE DIAGNOSES: Colitis, gastrointestinal bleeding, hypertension, hyperlipidemia, hypocalcemia, gastroesophageal reflux disease, neuropathy, bilateral buttock stage II decubitus ulcers, and urinary tract infection with funguria. Rule out flu and rule out Clostridium difficile. HISTORY: The patient has a history of hypertension, hyperlipidemia, GERD, neuropathy, PAD, CVA, and [place]. SURGICAL HISTORY: The patient had a right shoulder reconstruction, left carotid endarterectomy, right toe amputation, and right 2nd toe amputation. FAMILY HISTORY: The patient's son has diabetes. The patient's mom has cancer. HOSPITAL COURSE: copious amounts of watery diarrhea for about 2 weeks. She denies nausea, vomiting, fever, and abdominal pain. Diarrhea is worse with eating and nothing improves diarrhea. On admission, the patient was started on cefepime, Flagyl, Solu-Medrol. The C. difficile stool was sent twice, but was unable to be run because of the consistency, was too formed. CT of the abdomen showed findings compatible with colitis. Urine came back positive for yeast. The patient was started on fluconazole. Stool for blood was positive, although her hemoglobin remained stable. The patient will discharge to inpatient rehab with 4 more days of Ceftin, fluconazole, and Flagyl. Her IV steroids will be weaned. She will follow up with primary care in 1-2 weeks and GI as discussed. Vital signs stable, patient afebrile. The patient and son understand discharge instructions and agree to plan. Dictated by Yeimy Segundo NP Tanmay Hernandez MD KATINA/MODL /[id number]
== END 2018-05-23 19:55 | DRG 392 ==
LOC: ER 18:44 → ERHOLD 22:14 → MED/SURG2 23:10
PROVIDERS: ADMIT Internal Medicine; ATTEND Internal Medicine
DX: K52.9 Noninfective gastroenteritis and colitis, unspecified (principal); B37.49 Other urogenital candidiasis; I10 Essential (primary) hypertension; E78.5 Hyperlipidemia, unspecified; E83.51 Hypocalcemia; K21.9 Gastro-esophageal reflux disease without esophagitis; G62.9 Polyneuropathy, unspecified; L89.322 Pressure ulcer of left buttock, stage 2; L89.312 Pressure ulcer of right buttock, stage 2; I73.9 Peripheral vascular disease, unspecified; Z86.73 Personal history of transient ischemic attack (TIA), and cerebral infarction without residual deficits; I25.2 Old myocardial infarction; Z89.411 Acquired absence of right great toe; Z89.421 Acquired absence of other right toe(s); Z79.82 Long term (current) use of aspirin
CPT/HCPCS: 36415; 74177; 80048; 80053; 81001; 82140; 82150; 82270; 82948; 83605; 83630; 83690; 83735; 83880; 84145; 85025; 87045; 87086; 87177; 87400; 97139; 99284; J1200; J1450; J1940; J2405; J2920; J2930; J3475; J7030; Q9967

== ENCOUNTER 2018-06-24 13:22 | Inpatient (IN) | payer MEDICARE ==
[~2018-06-24] VITALS: Ht 162.6 cm; Wt 59.0 kg
[~2018-06-24 13:22] MED LIST changes: +CEFUROXIME500 MG PO; +FAMOTIDINE40 MG PO; +FLUCONAZOLE100 MG PO; +KLOR-CON M2020 MEQ PO; +METRONIDAZOLE500 MG PO; +PREDNISONE PO
[2018-06-24 16:10] LABS: BASOPHILS # (AUTO) 0.1 (0.0-0.1); BASOPHILS % 0.4 % (0.0-1.0); EOSINOPHILS % 0.1 % (0.0-6.0); HEMATOCRIT 38.9 % (34.2-44.1); HEMOGLOBIN 12.1 g/dL (12.0-16.0); LYMPHOCYTES # (AUTO) 2.5 (1.0-3.2); LYMPHOCYTES % 19.5 % (18.0-39.1); MEAN CORPUSCULAR HEMOGLOBIN 26.5 pg (28-32); MEAN CORPUSCULAR HGB CONC 31.1 g/dL (31-35); MEAN CORPUSCULAR VOLUME 85.3 fL (81-99); MONOCYTES # (AUTO) 1.2 (0.2-0.8); MONOCYTES % 9.4 % (4.4-11.3); NEUTROPHILS # (AUTO) 8.9 (2.1-6.9); NEUTROPHILS % 68.7 % (38.7-80.0); PLATELET COUNT 299 x10e3/uL (140-360); RED BLOOD COUNT 4.56 x10e6/uL (3.6-5.1)
[2018-06-24 16:14] LABS: INR 0.97; PROTHROMBIN TIME 13.4 seconds (11.9-14.5)
[2018-06-24 16:14] LABS: BILIRUBIN,URINE NEGATIVE (NEGATIVE); CLARITY,URINE SL CLOUDY (CLEAR); COLOR,URINE STRAW (YELLOW); KETONES,URINE NEGATIVE (NEGATIVE); LEUKOCYTE ESTERASE ,URINE NEGATIVE (NEGATIVE); NITRITE,URINE NEGATIVE (NEGATIVE); PROTEIN,URINE DIPSTICK TRACE (NEGATIVE); URINE UROBILINOGEN 0.2 mg/dL (0.2 - 1)
[2018-06-24 16:15] LABS: PARTIAL THROMBOPLASTIN TIME 36.2 seconds (23.8-35.5)
[2018-06-24 16:22] LABS: ALANINE AMINOTRANSFERASE 13 IU/L (0-55); ALBUMIN/GLOBULIN RATIO 0.8 (0.8-2.0); ALKALINE PHOSPHATASE 110 IU/L (40-150); BLOOD UREA NITROGEN 18 mg/dL (7-26); BUN/CREATININE RATIO 21 (6-25); CALCIUM 9.2 mg/dL (8.4-10.2); CARBON DIOXIDE 29 mmol/L (22-29); CHLORIDE 99 mmol/L (98-107); CREATINE KINASE 31 IU/L (29-168); CREATININE, SERUM 0.87 mg/dL (0.57-1.11); EST GLOMERULAR FILTRATION RATE > 60 ML/MIN (60-); GLUCOSE 242 mg/dL (74-118); SODIUM 136 mmol/L (136-145)
[2018-06-24 16:25] LABS: BACTERIA,URINE MODERATE /HPF; EPITHELIAL CELLS,URINE MODERATE /LPF; HYALINE CASTS 0-1 (0-1); WBC,URINE (MAN) 0-5 /HPF (0-5)
--- NOTE | 2018-06-24 17:52 | Diagnostic Imaging Report ---
EXAMINATION: CHEST SINGLE (PORTABLE) INDICATION: Chest pain. COMPARISON: CT abdomen/pelvis with contrast 05/19/2018. FINDINGS: TUBES and LINES: None. LUNGS: The lungs are hyperinflated. There is central vascular congestion. There is mild patchy opacity at the right lung base. PLEURA: No pleural effusion or pneumothorax. HEART AND MEDIASTINUM: The cardiomediastinal silhouette is unremarkable. The bilateral pulmonary arteries are prominent. BONES AND SOFT TISSUES: No acute osseous abnormality. Partially seen right proximal humeral fixation hardware. Surgical clips project over the left neck. UPPER ABDOMEN: No free air under the diaphragm. IMPRESSION: No acute radiographic abnormality. Hyperinflated lungs with central vascular congestion. No evidence of pulmonary edema. Prominent bilateral pulmonary arteries may reflect pulmonary arterial hypertension. Patchy right basilar opacity, likely atelectasis. No evidence of lobar consolidation. Signed by: Dr. Tuan Linares MD on 06/24/2018 5:48 PM
[2018-06-24] MEDS: CEFTRIAXONE SOD 1 GM/NS 50 ML 50 ML IV SCH (18:39)
[2018-06-24] MEDS ORDERED: ASPIRIN 81 MG CHEW TAB PO ONE (19:00)
[2018-06-24] MEDS ORDERED: CEFTRIAXONE SOD 1 GRAM/0.9% SOD CHL 50ML BAG IV SCH (19:00)
[2018-06-24] MEDS ORDERED: AZITHROMYCIN 500MG/SOD CHL 0.9% 250ML BAG IV SCH (19:00)
[2018-06-24] MEDS: D5.45%NS/KCL 20MEQ 1,000 ML IV SCH (19:43)
[2018-06-24] MEDS: AZITHROMYCIN 500MG/NS 250 ML 250 ML IV SCH (20:35)
--- NOTE | 2018-06-24 20:58 | NUR ---
Pt received from ER. Pt A&O and in no apparent distress. Pt family at bedside. All safety measures ensured, bed alarm on, and call rhodes near. Pt encouraged to use call rhodes for assistance.
[2018-06-24 21:45] VITALS: BP 124/61
--- NOTE | 2018-06-24 21:56 | NUR ---
Spoke to patient's son who stated she is not to take Norvasc and he forgot to mention this to ER. Informed him it will be removed from list.
[2018-06-24 22:11] VITALS: BP 124/61
[2018-06-24 22:54] VITALS: BP 124/61
[2018-06-25] VITALS (7 sets, daily range): BP systolic 127–149; BP diastolic 60–83
[2018-06-25 05:43] LABS: BASOPHILS # (AUTO) 0.1 (0.0-0.1); BASOPHILS % 0.4 % (0.0-1.0); EOSINOPHILS % 0.4 % (0.0-6.0); HEMATOCRIT 34.8 % (34.2-44.1); HEMOGLOBIN 10.8 g/dL (12.0-16.0); MEAN CORPUSCULAR HEMOGLOBIN 26.3 pg (28-32); MEAN CORPUSCULAR VOLUME 84.7 fL (81-99); MONOCYTES % 8.5 % (4.4-11.3); NEUTROPHILS # (AUTO) 7.9 (2.1-6.9); NEUTROPHILS % 71.1 % (38.7-80.0); PLATELET COUNT 258 x10e3/uL (140-360); RED BLOOD COUNT 4.11 x10e6/uL (3.6-5.1); RED CELL DISTRIBUTION WIDTH 14.7 % (11.7-14.4)
[2018-06-25 05:58] LABS: ANION GAP 11.2 mmol/L (8-16); BLOOD UREA NITROGEN 13 mg/dL (7-26); BUN/CREATININE RATIO 18 (6-25); CALCIUM 8.4 mg/dL (8.4-10.2); CARBON DIOXIDE 28 mmol/L (22-29); CHLORIDE 102 mmol/L (98-107); CREATININE, SERUM 0.73 mg/dL (0.57-1.11); EST GLOMERULAR FILTRATION RATE > 60 ML/MIN (60-); GLUCOSE 166 mg/dL (74-118); POTASSIUM 3.2 mmol/L (3.5-5.1); SODIUM 138 mmol/L (136-145)
[2018-06-25 06:25] LABS: CREATINE KINASE MB 0.6 ng/mL (0-5.0)
--- NOTE | 2018-06-25 06:32 | Diagnostic Imaging Report ---
EXAMINATION: CHEST SINGLE (PORTABLE) COMPARISON: Chest x-ray 06/24/2018 INDICATION: Pneumonia ^PNEUMONIA ^[id number] ^0535 ^Y DISCUSSION: Frontal view of the chest obtained at 0556 hours. HEART AND MEDIASTINUM: Stable cardiomegaly and aortic ectasia. Fullness of the pulmonary arteries is redemonstrated suggestive of pulmonary artery hypertension. LINES: None. LUNGS: Diffuse pulmonary hyperinflation. There is increasing right basilar airspace opacity. Central pulmonary vasculature is prominent and stable. PLEURA: No large effusions. No pneumothorax. BONES AND SOFT TISSUES: Fusion hardware in the upper right humerus is stable. Surgical clips in the lower left neck are stable. IMPRESSION: Increasing right basilar airspace opacity, either atelectasis or pneumonia. Other findings as described above are stable. Signed by: Dr. Parker Larry MD on 06/25/2018 6:28 AM
[2018-06-25] MEDS ORDERED: ASPIRIN 325 MG TAB PO SCH (09:00)
[2018-06-25] MEDS: ASPIRIN 81 MG ENTERIC COATED PO SCH (09:13)
[2018-06-25] MEDS: D5.45%NS/KCL 20MEQ 1,000 ML IV SCH ×2 (09:18→21:05)
--- NOTE | 2018-06-25 12:14 | Consultation ---
DATE OF CONSULTATION: 06/25/2018 Cardiology Consultation REASON FOR CONSULTATION: Atrial fibrillation. HISTORY OF PRESENT ILLNESS: This is an 87-year-old with history of hypertension and hyperlipidemia, who presents with complaints of shortness of breath. She states she developed burning chest pain approximately three days ago. She describes it at 2/10 in severity. It was not associated with shortness of breath, nausea, or diaphoresis. She also reports palpitations started around the same time as well as lightheadedness upon getting up. She denies any orthopnea or PND. She does report chronic left lower extremity edema. REVIEW OF SYSTEMS: Negative except as per HPI. PAST MEDICAL HISTORY: 1. Hypertension. 2. Hyperlipidemia. PAST SURGICAL HISTORY: Denies. SOCIAL HISTORY: Denies tobacco, alcohol, or illicit drugs. FAMILY HISTORY: Noncontributory to current illness. PHYSICAL EXAMINATION: VITAL SIGNS: Temperature 97 degrees, pulse 110, respiratory rate 20, blood pressure 127/60, and oxygen saturation 97% on 2 L nasal cannula. GENERAL: Elderly woman, in no acute distress. HEENT: Normocephalic, atraumatic. NECK: Supple. No thyromegaly or cervical lymphadenopathy. No carotid bruits. LUNGS: Clear to auscultation bilaterally. No wheezes or crackles. CARDIOVASCULAR: Normal rate. Irregularly irregular. Normal S1, S2. No murmur. ABDOMEN: Soft, nontender. EXTREMITIES: 1+ pitting edema on the left. LABORATORY DATA: WBC 11.13, hemoglobin 10.8, hematocrit 34.8, platelets 258. Sodium 138, potassium 3.2, chloride 102, CO2 of 28, BUN 13, creatinine 0.73. BNP 1265. Troponin 0.015. Chest x-ray; increased right basilar airspace opacity either atelectasis or pneumonia, other findings as described above are stable. EKG; AFib with RVR with premature ventricular aberrantly conducted complexes, marked ST abnormality and possible inferior subendocardial injury. RECOMMENDATIONS: Monitor the patient on telemetry while admitted. Resume home cardiac medications including metoprolol for rate control. Monitor the patient closely on telemetry. Obtain echocardiogram. Trend cardiac enzymes to rule out myocardial infarction. The patient will need ischemic evaluation given her risk factors. The patient is a poor historian. Her CHADS-VASc score is elevated. She will need anticoagulation for CVA prophylaxis. We will discuss this with her son. Thank you for this consult. We will continue to follow. MD BELKIS Lewis/MCKENZIE /[id number]
[2018-06-25 13:32] LABS: CREATINE KINASE MB 0.8 ng/mL (0-5.0)
--- NOTE | 2018-06-25 14:25 | NUR ---
Visit made by the Spiritual Care Department Pastoral Visitor, Aysha Carty. PV provided pastoral presence, prayer, hospitality, and supportive listening. Pastoral Visitor informed pt/family of the scope of [employer] and availability. CLAY DONATO Scratch Finisher Spiritual Care Department O: [phone] Pager: [phone] ([phone] number calling from)
[2018-06-25] MEDS: METOPROLOL TARTRATE 25 MG TAB PO SCH (17:53)
[2018-06-25] MEDS: CEFTRIAXONE SOD 1 GM/NS 50 ML 50 ML IV SCH (17:53)
[2018-06-25] MEDS: AMLODIPINE BESYLATE 5 MG TAB PO SCH (17:53)
[2018-06-25] MEDS: PANTOPRAZOLE SOD 40 MG TABEC PO SCH (17:53)
[2018-06-25] MEDS: LOSARTAN POTASSIUM 25 MG TAB PO SCH (17:53)
[2018-06-25] MEDS: POTASSIUM CHLORIDE 20 MEQ TAB CR PO SCH (18:10)
[2018-06-25] MEDS: AMIODARONE HCL 200 MG TAB PO SCH (18:10)
[2018-06-25] MEDS: FUROSEMIDE INJ 10 MG/ML 4 ML VIAL IV SCH (18:10)
[2018-06-25] MEDS ORDERED: DEXTROSE 50% SYRINGE 50 ML IV PRN (19:15)
[2018-06-25] MEDS: AZITHROMYCIN 500MG/NS 250 ML 250 ML IV SCH (20:53)
[2018-06-25] MEDS: INSULIN REGULAR, HUMAN 100 UNIT/1 ML 3ML VIAL SQ SCH (21:00)
[2018-06-25] MEDS: GABAPENTIN 100 MG CAP PO SCH (21:05)
[2018-06-25] MEDS: ENOXAPARIN SOD INJ 40 MG/0.4 ML SYR SC SCH (21:05)
--- NOTE | 2018-06-25 21:46 | Diagnostic Imaging Report ---
CT Abdomen And Pelvis without Intravenous Contrast INDICATION: Mid abdominal pain for 5 days ^abdominal pain ^[id number] ^2109 TECHNIQUE: Thin collimation axial images obtained from the diaphragm to the level of the pubic symphysis. Oral contrast was administered. Dose reduction techniques used: Automated exposure control, adjustment of the mAs and/or kVp according to patient size, standardized low-dose protocol, and/or iterative reconstruction technique. RADIATION DOSE: Total DLP: 444.33 mGy*cm Estimated effective dose: (DLP x 0.015 x size factor) mSv CTDIvol has been reviewed. It is below the limits set by the Radiation Protocol Committee (RPC). COMPARISON: CT abdomen/pelvis 05/19/2018. ABDOMEN FINDINGS: Images are motion degraded. Lung Bases: Bilateral pleural effusions have developed. These layer posterior. Right pleural effusion measures 4.7 cm. Left pleural effusion measures 1.8 cm. There is bibasilar atelectasis. The heart is mildly enlarged with moderate burden of coronary artery atherosclerosis. Low attenuating structure posterior to the crux of the right diaphragm measures 14 mm and is stable suggestive of a portion of the parasympathetic chain. Liver: Normal attenuation. No evidence for mass. Gallbladder: Present and contains calcified intraluminal gallstones measuring up to 2 cm. No gallbladder wall thickening. No biliary ductal dilatation. Pancreas: Normal attenuation without mass or ductal dilatation. Spleen: Normal in size. No evidence of mass. Adrenal Glands: Stable diffuse thickening without discrete mass. Kidneys: Right: No calculus. No soft tissue mass. No hydronephrosis. Left: No calculus. No soft tissue mass. No hydronephrosis. Retroaortic left renal vein. Lymph Nodes: No enlarged abdominal or retroperitoneal lymph nodes. Aorta: Heavily calcified but normal in diameter. There are heavy calcifications throughout the celiac artery vessels. PELVIS FINDINGS: Bowel: Stomach: Normal. Small Bowel: Lipoma in the third portion of the duodenum measures 3 cm in maximum dimension and is stable. Small bowel is normal in diameter. Large Bowel: Contains enteric contrast. The cecal base contains low attenuating material, likely semisolid stool. No associated mural thickening. Diverticulosis is present, predominantly in the sigmoid and descending colon without associated inflammation. There is a prominent stool ball in the rectum without mural thickening. Appendix: Diminutive but otherwise normal. Bladder: Normal. The uterus is atrophic. There are no adnexal masses. Peritoneum/retroperitoneum: No free fluid or fluid collection. No free air. Bones: Stable ductal scoliosis of the lumbar spine with moderate degenerative changes. Soft tissues: Unremarkable. IMPRESSION: 1. No evidence for bowel obstruction or inflammation. Prominent stool ball in the rectum suggestive of fecal impaction. Diverticulosis coli. Stable duodenal lipoma. 2. Cholelithiasis. Normal biliary tree. 3. Bilateral pleural effusions and bibasilar atelectasis or infiltrate. 4. Stable bilateral adrenal hyperplasia. Signed by: Dr. Parker Larry MD on 06/25/2018 9:43 PM
[2018-06-26] VITALS (8 sets, daily range): BP systolic 95–162; BP diastolic 49–75
[2018-06-26 05:55] LABS: BASOPHILS # (AUTO) 0.1 (0.0-0.1); BASOPHILS % 0.6 % (0.0-1.0); EOSINOPHILS % 0.4 % (0.0-6.0); HEMOGLOBIN 10.6 g/dL (12.0-16.0); LYMPHOCYTES % 20.6 % (18.0-39.1); MEAN CORPUSCULAR HEMOGLOBIN 26.6 pg (28-32); MEAN CORPUSCULAR HGB CONC 31.2 g/dL (31-35); MEAN CORPUSCULAR VOLUME 85.4 fL (81-99); MONOCYTES % 10.1 % (4.4-11.3); NEUTROPHILS # (AUTO) 6.4 (2.1-6.9); NEUTROPHILS % 67.2 % (38.7-80.0); PLATELET COUNT 267 x10e3/uL (140-360); RED BLOOD COUNT 3.98 x10e6/uL (3.6-5.1); RED CELL DISTRIBUTION WIDTH 14.9 % (11.7-14.4)
[2018-06-26 06:18] LABS: ANION GAP 10.9 mmol/L (8-16); BLOOD UREA NITROGEN 10 mg/dL (7-26); BUN/CREATININE RATIO 14 (6-25); CALCIUM 8.2 mg/dL (8.4-10.2); CARBON DIOXIDE 28 mmol/L (22-29); CHLORIDE 103 mmol/L (98-107); EST GLOMERULAR FILTRATION RATE > 60 ML/MIN (60-); GLUCOSE 129 mg/dL (74-118); POTASSIUM 3.9 mmol/L (3.5-5.1); SODIUM 138 mmol/L (136-145)
[2018-06-26 07:20] LABS: CHOL/HDL RATIO 2.1 (3.0-3.6); CHOLESTEROL 111 MD/DL (0-199); HDL CHOLESTEROL 52 MG/DL (40-60); LDL CHOLESTEROL 45 MG/DL (60-130); TRIGLYCERIDES 72 MG/DL (0-149)
[2018-06-26] MEDS: INSULIN REGULAR, HUMAN 100 UNIT/1 ML 3ML VIAL SQ SCH ×4 (07:30→21:01)
[2018-06-26] MEDS: PANTOPRAZOLE SOD 40 MG TABEC PO SCH (07:30)
[2018-06-26 07:42] LABS: THYROID STIMULATING HORMONE 1.197 uIU/mL (0.350-4.940)
--- NOTE | 2018-06-26 08:40 | NUR ---
Pt had BM at this time.
[2018-06-26] MEDS: ASPIRIN 81 MG ENTERIC COATED PO SCH ×2 (09:00)
[2018-06-26] MEDS: AMLODIPINE BESYLATE 5 MG TAB PO SCH (09:00)
[2018-06-26] MEDS: GABAPENTIN 100 MG CAP PO SCH ×3 (09:00→21:00)
[2018-06-26] MEDS: METOPROLOL TARTRATE 25 MG TAB PO SCH ×2 (09:00→16:51)
[2018-06-26] MEDS: AMIODARONE HCL 200 MG TAB PO SCH ×2 (09:00→16:43)
[2018-06-26] MEDS ORDERED: HYDROCHLOROTHIAZIDE 25 MG TAB PO SCH (09:00)
[2018-06-26] MEDS: POTASSIUM CHLORIDE 20 MEQ TAB CR PO SCH (09:00)
[2018-06-26] MEDS: LOSARTAN POTASSIUM 25 MG TAB PO SCH (09:00)
--- NOTE | 2018-06-26 09:55 | NUR ---
Notified son, Antony, in regards to pt's informed consent for stress test being preformed today. Son informed nurse that another brother is going to come in around 12pm/1pm to sign consent. Nurse informed nuclear medicine of status on consent forms.
--- NOTE | 2018-06-26 10:00 | NUR ---
Pt presents with diffculty breathing, unable to take a deep breathe. Pt c/o pain to chest that "comes and goes." Breathing is labored, use of abd muscles. NC @ 2LPM. Nurse asked pt is she feels SOB, pt stated "No." Pratik for Dr. Hernandez notified regarding status, new orders received. Continuous pulse ox and tele in place. A-Fib on tele monitor. EKG 12 lead ordered. Pt to have stress test this afternoon.
[2018-06-26] MEDS ORDERED: MORPHINE SULFATE INJ 4 MG/ML INJ 1ML IV PRN (10:15)
[2018-06-26] MEDS ORDERED: ONDANSETRON HCL INJ 2MG/ML 2ML 2 MG/ML VIAL IV PRN (10:30)
[2018-06-26] MEDS: FUROSEMIDE INJ 10 MG/ML 4 ML VIAL IV SCH ×3 (11:17→21:01)
[2018-06-26] MEDS: ENOXAPARIN SOD INJ 40 MG/0.4 ML SYR SC SCH ×2 (11:17→21:00)
[2018-06-26] MEDS ORDERED: REGADENOSON 0.4 MG/5 ML SYR IV ONE (12:49)
[2018-06-26] MEDS ORDERED: NITROGLYCERIN 0.4 MG SUBL ONE (13:33)
[2018-06-26] MEDS ORDERED: METOPROLOL TARTRATE INJ 1 MG/ML VIAL ONE (13:33)
--- NOTE | 2018-06-26 14:00 | Consultation ---
DATE OF CONSULTATION: Pulmonary Critical Care Consultation CHIEF COMPLAINT: Dyspnea and chest pain. HISTORY OF PRESENT ILLNESS: The patient is an 87-year-old woman. She was recently hospitalized at [facility] about a month ago with colitis and GI bleeding along with hypertension. She also has a vague history of heart problems. She came to the emergency department complaining of intermittent chest pain and dyspnea over 2-3 days. She does not complain of cough or phlegm production. She is not having fevers. PAST SURGICAL HISTORY: Prior amputation of the great toe. PAST MEDICAL HISTORY: 1. Hypertension. 2. Gastroesophageal reflux. 3. Hyperlipidemia. SOCIAL HISTORY: The patient denies smoking or drinking. FAMILY HISTORY: Family history is noncontributory. ALLERGIES: SHE IS ALLERGIC TO CONTRAST DYE WELL PNEUMOVAX VACCINE. REVIEW OF SYSTEMS: She denies any fever. She does not have headache or neck pain. She has no sore throat. She does describe intermittent chest pain. She also notes some difficulty breathing. She does not complain of cough. She has no abdominal pain. There is no nausea or vomiting. She does have chronic leg edema in her left leg. She denies any focal weakness. PHYSICAL EXAMINATION: VITAL SIGNS: The patient is afebrile. The blood pressure is 162/75 and the heart rate is 110-120 with an irregularly irregular rhythm. Saturation is 93% on 2 L. HEENT: Shows no facial swelling or erythema. The oropharynx is normal. LYMPHATIC: Shows no submandibular, cervical, or supraclavicular adenopathy. CARDIAC: Reveals an irregularly irregular rhythm. LUNGS: Auscultation of lungs reveals decreased breath sounds at the bases. ABDOMEN: Soft and nontender. There is no rebound or guarding. EXTREMITIES: There is some chronic leg edema, it is greater on the left side. NEURO: There are no focal neurological abnormalities. LABORATORY DATA: BUN to creatinine ratio is normal and the other electrolytes are within normal limits. Blood sugars are normal. The white blood cell count is 9.5 and the hemoglobin is 10.6. The platelet count is 267. C difficile is negative from last month. Influenza is negative as well. RADIOGRAPHIC DATA: Chest x-ray shows right basilar airspace opacity. CT scan of the abdomen and pelvis shows bilateral pleural effusions and basilar atelectasis. The patient also has some constipation as well as diverticulosis and cholelithiasis. IMPRESSION: 1. Acute on chronic systolic congestive heart failure. 2. Atrial fibrillation with a rapid ventricular response. 3. Bilateral pleural effusions and basilar atelectasis. 4. Hypertension. 5. Diverticulosis. 6. Constipation. PLAN: 1. The patient will be continued on Lasix intermittently as well as amiodarone and amlodipine. 2. Continue current antibiotics. 3. Await results of echocardiogram and cardiology evaluation. 4. Continue oxygen. 5. Bowel regimen. 6. DVT prophylaxis. MD XU Mejia/MODL /[id number]
--- NOTE | 2018-06-26 15:00 | NUR ---
Patient transferred from observation to [facility] she is s/p Lexiscan stress test. no s/s of distress noted. Placed on telemetry A-fib, heart rate ranging between 110-120's, shortness of breath with exertion, placed on oxygen 2-3 liter humidified. Verbalizing needs. Bed in low position, breaks on bed alarm on, oriented to room and use of call light instructed to call when needing assistance. Verbalized understanding.
--- NOTE | 2018-06-26 16:10 | Progress Note ---
DATE: 06/26/2018 Cardiology Progress Note SUBJECTIVE: The patient denies chest pain or shortness of breath. OBJECTIVE: VITAL SIGNS: Temperature 98.8 degrees, pulse 115, respiratory rate 20, blood pressure 130/66, oxygen saturation 94% on 2 L nasal cannula. GENERAL: Elderly woman, frail, no acute distress. LUNGS: Clear to auscultation bilaterally. No wheezes or crackles. CARDIOVASCULAR: Tachycardic, irregularly irregular. Normal S1, S2. No murmur. ABDOMEN: Soft, nontender. EXTREMITIES: 1+ pitting edema on the left. CARDIAC MEDICATIONS: Furosemide 40 mg IV b.i.d., amiodarone 200 mg p.o. b.i.d., metoprolol tartrate 25 mg p.o. b.i.d., losartan 50 mg p.o. daily, aspirin 81 mg p.o. daily, amlodipine 5 mg p.o. daily. LABORATORY DATA: WBC 9.57, hemoglobin 10.6, hematocrit 34, platelets 267. Sodium 138, potassium 3.9, chloride 103, CO2 of 28, BUN 10, creatinine 0.7. Cholesterol 111, LDL 45, HDL 52, triglyceride 72. Echocardiogram revealed normal systolic function. Diastolic function could not be evaluated due to arrhythmia. TELEMETRY: Atrial fibrillation with PVCs. IMPRESSION: 1. Chest pain. 2. Atrial fibrillation with rapid ventricular response. 3. Hypertension. 4. Hyperlipidemia. RECOMMENDATIONS: No evidence of myocardial infarction on serial cardiac biomarkers. Continue diuretics given elevated BNP, strict I and O's and daily weights. We will increase the furosemide to q.8 hour dosing. Nuclear stress test was performed today without evidence of ischemia. Lower extremity arterial Doppler did suggest peripheral arterial disease in the right lower extremity. We will need clarification with regard to the patient's functional status. Given the condition would recommend conservative medical therapy unless patient developed wounds or gangrenous changes. Continue aspirin as well. Continue current cardiac medications otherwise. Thank you for this consult. We will continue to follow. Anita De Leon MD [facility]/MODL /[id number]
[2018-06-26] MEDS ORDERED: SODIUM CHLORIDE 0.9% 250ML 250 ML ONE (19:12)
[2018-06-26] MEDS: CEFTRIAXONE SOD 1 GM/NS 50 ML 50 ML IV SCH (19:12)
[2018-06-26] MEDS: AZITHROMYCIN 500MG/NS 250 ML 250 ML IV SCH (19:53)
[2018-06-26] MEDS: ATORVASTATIN 20 MG TAB PO SCH (21:00)
[2018-06-26] MEDS ORDERED: BISACODYL 10 MG SUPP PR NR (22:00)
[2018-06-27 00:17] VITALS: BP 94/53
[2018-06-27 04:17] VITALS: BP 103/48
[2018-06-27 05:10] LABS: BASOPHILS # (AUTO) 0.1 (0.0-0.1); BASOPHILS % 0.5 % (0.0-1.0); EOSINOPHILS % 0.2 % (0.0-6.0); HEMATOCRIT 35.8 % (34.2-44.1); HEMOGLOBIN 10.9 g/dL (12.0-16.0); LYMPHOCYTES # (AUTO) 2.9 (1.0-3.2); LYMPHOCYTES % 26.9 % (18.0-39.1); MEAN CORPUSCULAR HEMOGLOBIN 25.8 pg (28-32); MEAN CORPUSCULAR HGB CONC 30.4 g/dL (31-35); MEAN CORPUSCULAR VOLUME 84.8 fL (81-99); MONOCYTES % 9.4 % (4.4-11.3); NEUTROPHILS # (AUTO) 6.6 (2.1-6.9); PLATELET COUNT 312 x10e3/uL (140-360); RED BLOOD COUNT 4.22 x10e6/uL (3.6-5.1)
[2018-06-27 05:29] LABS: ANION GAP 12.9 mmol/L (8-16); BLOOD UREA NITROGEN 14 mg/dL (7-26); BUN/CREATININE RATIO 18 (6-25); CALCIUM 8.8 mg/dL (8.4-10.2); CARBON DIOXIDE 29 mmol/L (22-29); CHLORIDE 105 mmol/L (98-107); CREATININE, SERUM 0.77 mg/dL (0.57-1.11); EST GLOMERULAR FILTRATION RATE > 60 ML/MIN (60-); GLUCOSE 89 mg/dL (74-118); MAGNESIUM 1.9 MG/DL (1.3-2.1); PHOSPHORUS 3.4 MG/DL (2.3-4.7); POTASSIUM 3.9 mmol/L (3.5-5.1); SODIUM 143 mmol/L (136-145)
[2018-06-27] MEDS: FUROSEMIDE INJ 10 MG/ML 4 ML VIAL IV SCH ×3 (05:50→21:32)
--- NOTE | 2018-06-27 05:51 | NUR ---
patient is awaken, no distress noted, diaper noted still dry, she stated will call nurse if she want to urinate, turned patient to left side.
[2018-06-27] MEDS ORDERED: BISACODYL 10 MG SUPP PR NR (06:15)
[2018-06-27] MEDS ORDERED: ONDANSETRON HCL 4 MG ORAL DISINTEGRATING TAB PO PRN (06:30)
--- NOTE | 2018-06-27 06:40 | Diagnostic Imaging Report ---
EXAMINATION: CHEST SINGLE (PORTABLE) COMPARISON: Chest x-ray 06/25/2018 INDICATION: ^CHF ^[id number] ^0600 DISCUSSION: Frontal view of the chest obtained at 0602 hours. HEART AND MEDIASTINUM: Stable cardiomegaly and prominence of the pulmonary dipti, likely due to pulmonary artery enlargement. LINES: None. LUNGS: The lungs are diffusely hyperinflated. New right perihilar airspace opacities have developed. Intrapulmonary vasculature is prominent but stable. PLEURA: Bilateral pleural effusions. No pneumothorax. BONES AND SOFT TISSUES: Stable. IMPRESSION: New right perihilar airspace opacities suggestive atelectasis or infiltrate. Stable cardiomegaly. Signed by: Dr. Parker Larry MD on 06/27/2018 6:37 AM
[2018-06-27] MEDS: INSULIN REGULAR, HUMAN 100 UNIT/1 ML 3ML VIAL SQ SCH ×4 (07:30→20:31)
[2018-06-27 07:43] VITALS: BP 126/68
[2018-06-27] MEDS: PANTOPRAZOLE SOD 40 MG TABEC PO SCH (07:49)
[2018-06-27] MEDS: POLYETHYLENE GLYCOL 3350 17 GM PACK PO SCH (09:00)
[2018-06-27] MEDS: ASPIRIN 81 MG ENTERIC COATED PO SCH (09:51)
[2018-06-27] MEDS: GUAIFENESIN 600MG/DEXTROMETHORPHAN 30MG TABSR PO SCH ×2 (09:51→18:29)
[2018-06-27] MEDS: AMIODARONE HCL 200 MG TAB PO SCH ×2 (09:51→18:29)
[2018-06-27] MEDS: AMLODIPINE BESYLATE 5 MG TAB PO SCH (09:52)
[2018-06-27] MEDS: POTASSIUM CHLORIDE 20 MEQ TAB CR PO SCH (09:52)
[2018-06-27] MEDS: GABAPENTIN 100 MG CAP PO SCH ×3 (09:53→20:31)
[2018-06-27] MEDS: LOSARTAN POTASSIUM 25 MG TAB PO SCH (09:53)
[2018-06-27] MEDS: ENOXAPARIN SOD INJ 40 MG/0.4 ML SYR SC SCH ×2 (09:53→20:31)
[2018-06-27] MEDS: METOPROLOL TARTRATE 25 MG TAB PO SCH ×2 (09:55→18:37)
[2018-06-27 12:03] VITALS: BP 101/85
--- NOTE | 2018-06-27 13:45 | Progress Note ---
DATE: 06/27/2018 Cardiology Progress Note SUBJECTIVE: The patient denies chest pain or shortness of breath. She is undergoing swallow evaluation by speech therapy. OBJECTIVE: VITAL SIGNS: Temperature 97.6 degrees, pulse 105 respiratory rate 24, blood pressure 126/68, oxygen saturation 92% on 2.5 L nasal cannula. GENERAL: Elderly woman, frail. No acute distress. LUNGS: Clear to auscultation bilaterally. No wheezes or crackles. CARDIOVASCULAR: Tachycardic, irregularly irregular. Normal S1, S2. No murmur. ABDOMEN: Soft, nontender. EXTREMITIES: 1+ pitting edema on the left. CARDIAC MEDICATIONS: Metoprolol tartrate 25 mg p.o. b.i.d., enoxaparin 40 mg subcu q.12 hours, losartan 50 mg p.o. daily, amlodipine 5 mg p.o. daily, aspirin 81 mg p.o. daily, amiodarone 200 mg p.o. b.i.d., furosemide 40 mg IV q.8 hours, atorvastatin 20 mg p.o. at bedtime. LABORATORY DATA: WBC 10.65, hemoglobin 10.9, hematocrit 35.8, platelets 312. Sodium 143, potassium 3.9, chloride 105, CO2 29, BUN 14, creatinine 0.77. TELEMETRY: Atrial fibrillation. IMPRESSION: 1. Chest pain. 2. Atrial fibrillation with rapid ventricular response. 3. Hypertension. 4. Hyperlipidemia. RECOMMENDATIONS: No evidence of myocardial infarction with serial cardiac biomarkers. Stress test demonstrated normal myocardial perfusion. Continue diuretics given elevated BNP. Strict I's and O's and daily weights. Monitor volume status closely. PT evaluation is pending. We will need evaluation of the patient's functional status. Lower extremity arterial Doppler suggested peripheral arterial disease in the right lower extremity. Given her frailty as well as lack of wounds or gangrenous changes, would recommend conservative medical therapy. Continue aspirin. If the patient is not a high fall risk, can discuss anticoagulation with the family, however, this is currently pending. Thank you for this consult. We will continue to follow. Anita De Leon MD [facility]/MODL /[id number]
--- NOTE | 2018-06-27 14:33 | NUR ---
ST Note: MBS delayed until 06/28/18. No family at bedside. Spoke with ROBBIN Allen.
[2018-06-27] MEDS: IPRATROPIUM BROMIDE 0.02% 2.5 ML NEB NEB SCH ×2 (15:00→19:20)
[2018-06-27] MEDS: LEVALBUTEROL HCL SOLN NEBU 0.63 MG/3 ML NEB INH SCH ×2 (15:00→19:20)
[2018-06-27 16:00] VITALS: BP 130/65
--- NOTE | 2018-06-27 17:05 | NUR ---
patient's refused for nurse to change dressing, stating I will change dressing myself, Dr. Delong taught me to the dressing changes to right foot. it is the hydrogel with the iodoform, the wound needs to air I do not want to apply ABD because the wound needs to air" Addendum: 07/01/18 at 1903 by Nina Jacinto RN Discard note entered in error.
[2018-06-27] MEDS: CEFTRIAXONE SOD 1 GM/NS 50 ML 50 ML IV SCH (18:28)
[2018-06-27 20:00] VITALS: BP 93/80
[2018-06-27] MEDS: AZITHROMYCIN 500MG/NS 250 ML 250 ML IV SCH (20:24)
[2018-06-27] MEDS: ATORVASTATIN 20 MG TAB PO SCH (20:30)
[2018-06-28] VITALS (9 sets, daily range): BP systolic 99–127; BP diastolic 42–74
[2018-06-28] MEDS: IPRATROPIUM BROMIDE 0.02% 2.5 ML NEB NEB SCH ×4 (01:00→19:40)
[2018-06-28] MEDS: LEVALBUTEROL HCL SOLN NEBU 0.63 MG/3 ML NEB INH SCH ×4 (01:00→19:40)
[2018-06-28] MEDS: FUROSEMIDE INJ 10 MG/ML 4 ML VIAL IV SCH ×3 (05:34→22:18)
[2018-06-28 05:49] LABS: BASOPHILS % 0.5 % (0.0-1.0); EOSINOPHILS # (AUTO) 0.1 (0.0-0.4); EOSINOPHILS % 0.7 % (0.0-6.0); HEMATOCRIT 32.9 % (34.2-44.1); HEMOGLOBIN 10.2 g/dL (12.0-16.0); LYMPHOCYTES # (AUTO) 1.8 (1.0-3.2); LYMPHOCYTES % 21.7 % (18.0-39.1); MEAN CORPUSCULAR HEMOGLOBIN 26.4 pg (28-32); MONOCYTES # (AUTO) 0.7 (0.2-0.8); MONOCYTES % 8.2 % (4.4-11.3); NEUTROPHILS # (AUTO) 5.7 (2.1-6.9); NEUTROPHILS % 68.1 % (38.7-80.0); PLATELET COUNT 307 x10e3/uL (140-360); RED BLOOD COUNT 3.87 x10e6/uL (3.6-5.1); RED CELL DISTRIBUTION WIDTH 15.2 % (11.7-14.4)
[2018-06-28 06:50] LABS: ANION GAP 13.9 mmol/L (8-16); BLOOD UREA NITROGEN 15 mg/dL (7-26); BUN/CREATININE RATIO 19 (6-25); CALCIUM 8.4 mg/dL (8.4-10.2); CARBON DIOXIDE 29 mmol/L (22-29); CHLORIDE 108 mmol/L (98-107); CREATININE, SERUM 0.78 mg/dL (0.57-1.11); EST GLOMERULAR FILTRATION RATE > 60 ML/MIN (60-); GLUCOSE 88 mg/dL (74-118); MAGNESIUM 1.6 MG/DL (1.3-2.1); POTASSIUM 3.9 mmol/L (3.5-5.1); SODIUM 147 mmol/L (136-145)
[2018-06-28] MEDS: INSULIN REGULAR, HUMAN 100 UNIT/1 ML 3ML VIAL SQ SCH ×4 (07:30→20:37)
[2018-06-28] MEDS: ASPIRIN 81 MG ENTERIC COATED PO SCH (08:00)
[2018-06-28] MEDS: PANTOPRAZOLE SOD 40 MG TABEC PO SCH (08:00)
[2018-06-28] MEDS: GUAIFENESIN 600MG/DEXTROMETHORPHAN 30MG TABSR PO SCH ×2 (08:00→16:41)
[2018-06-28] MEDS: GABAPENTIN 100 MG CAP PO SCH ×3 (08:00→20:36)
[2018-06-28] MEDS: ENOXAPARIN SOD INJ 40 MG/0.4 ML SYR SC SCH ×2 (08:01→20:36)
[2018-06-28] MEDS: AMLODIPINE BESYLATE 5 MG TAB PO SCH (08:01)
[2018-06-28] MEDS: AMIODARONE HCL 200 MG TAB PO SCH ×2 (08:01→16:41)
[2018-06-28] MEDS: POTASSIUM CHLORIDE 20 MEQ TAB CR PO SCH (08:01)
[2018-06-28] MEDS: LOSARTAN POTASSIUM 25 MG TAB PO SCH (08:01)
[2018-06-28] MEDS: METOPROLOL TARTRATE 25 MG TAB PO SCH ×2 (08:01→16:42)
[2018-06-28] MEDS: POLYETHYLENE GLYCOL 3350 17 GM PACK PO SCH (08:02)
--- NOTE | 2018-06-28 08:48 | Diagnostic Imaging Report ---
EXAM: Modified barium swallow with Speech Pathologist INDICATION: ^R/O Aspiration ^[id number] ^0719 COMPARISON: None available. RADIATION DOSE: Fluoroscopy Time: 1 min 38 seconds Dose (Kerma) Area Product: 122.1 cGycm2 Air Kerma (AK) value has been reviewed. It is below the limits set by the Radiation Protocol Committee (RPC) committee. FINDINGS: See impression IMPRESSION: No evidence of penetration or aspiration. Please see speech pathology report for detailed description and recommendations. Signed by: Dr. Jelani Marroquin M.D. on 06/28/2018 8:45 AM
--- NOTE | 2018-06-28 11:15 | Progress Note ---
DATE: Pulmonary Critical Care Progress Note SUBJECTIVE: The patient feels better overall. She has no chest pain. Her breathing is improved. She did get up a little bit with physical therapy. PHYSICAL EXAMINATION: VITAL SIGNS: The blood pressure is 127/60 and the pulse is 100 to 110. There is an irregularly irregular rhythm. LYMPHATIC: Shows no submandibular, cervical or supraclavicular adenopathy. CARDIAC: Reveals an irregularly irregular rhythm. There are no murmurs or rubs. LUNGS: Auscultation of lungs reveals clear breath sounds bilaterally. ABDOMEN: Soft and nontender. There is no leg edema or calf tenderness. There is no cyanosis or clubbing. SKIN: Shows no rashes. NEUROLOGICAL: Shows no focal abnormalities. LABORATORY DATA: White blood cell count is 8.4 and hemoglobin is 10.2. The platelet count is 307. The BUN to creatinine ratio is 15 to 0.78 and the sodium is 147. The BNP is 961. IMPRESSION: 1. Gekql-uh-awdomfa systolic congestive heart failure. 2. Atrial fibrillation with rapid ventricular response. 3. Hypertension. 4. Hyperlipidemia. 5. Diverticulosis. 6. Bilateral pleural effusions. PLAN: 1. Continue diuresis. 2. Continue to treat atrial fibrillation. 3. Wean oxygen. 4. Repeat electrolytes and CBC in the morning. 5. Await final results of swallowing evaluation. 6. Physical therapy. 7. Consider prison. Otto Robledo MD [facility]/MODL /[id number]
--- NOTE | 2018-06-28 12:10 | Progress Note ---
DATE: 06/28/2018 Cardiology Progress Note The patient denies chest pain or shortness of breath. OBJECTIVE: VITAL SIGNS: Temperature 98.5 degrees, pulse 137, respiratory rate 20, blood pressure 127/60, oxygen saturation 97% on 3 L nasal cannula. GENERAL: Elderly woman, frail, no acute distress. LUNGS: Clear to auscultation bilaterally. No wheezes or crackles. CARDIOVASCULAR: Tachycardic, irregularly irregular. Normal S1, S2. No murmur. ABDOMEN: Soft, nontender. EXTREMITIES: 1+ pitting edema on the left. CARDIAC MEDICATIONS: Metoprolol tartrate 50 mg p.o. b.i.d., amiodarone 200 mg p.o. b.i.d., losartan 50 mg p.o. daily, amlodipine 5 mg p.o. daily, aspirin 81 mg p.o. daily, furosemide 40 mg IV q.8 hours, atorvastatin 20 mg p.o. at bedtime. LABORATORY DATA: Modified barium swallow no evidence of penetration or aspiration. Please see speech pathology report for detailed description and recommendations. Chest x-ray, new right perihilar airspace opacities suggestive of atelectasis or infiltrate. Stable cardiomegaly. IMPRESSION: 1. Chest pain. 2. Atrial fibrillation with rapid ventricular response. 3. Hypertension. 4. Hyperlipidemia. RECOMMENDATIONS: No evidence of myocardial fraction on serial cardiac biomarkers. Stress test demonstrated normal myocardial perfusion. Continue diuresis given elevated BNP which is improving. Strict I and O's and daily weights. Monitor volume status closely. PT evaluation is pending. We will need evaluation on the patient's functional status to determine if she will be a candidate for anticoagulation for CVA prophylaxis. Lower extremity arterial Doppler suggest peripheral arterial disease in the right lower extremity. Given her frailty as well as lack of wounds or gangrenous changes, would recommend conservative medical therapy. Continue aspirin. Thank you for this consult. We will continue to follow. Anita De Leon MD [facility]/MODL /[id number]
--- NOTE | 2018-06-28 13:32 | NUR ---
WOUND CARE CONSULTATION: INITIAL EVALUATION Patient admitted from Home to ER for Hypokalemia, Early RLL PNA. Discharge Planning for today to SNF. Wound Care consulted for evaluation of sacral ulcer. PATIENT VISIT: Patient primarily English speaking, Son at bedside. AAOX3 Son states patient has had wounds since her last hospitalization, discharged home and has been treating areas with Desitin cream and Lanolin Creams but has not closed any in the last two weeks. Patient Diapered. Son states patient likes to sit out of bed onto chair and uses pillow to cushion seat. In addition patient has a wheel chair at home with a gel cushion. Advised to use gel cushion when sitting up in chair instead of using pillows. Resources provided so he may purchase foam dressings for continued treatment when medically appropriate to go home. Presents with bilateral gluteal ulcerations, 0.2cm depth. Annular Shaped. Periwound [place]. Not reddened, Draining scant serosanguineous secretion. Additional description documented in wound assessment documentation area. IMPRESSION: 1. Right Gluteal - Stage II Pressure Ulcer Present On Admission 2. Left Gluteal - Stage II Pressure Ulcer Present On Admission RECOMMENDATION: 1. Right Gluteal - Stage II Pressure Ulcer Present On Admission - Cleanse area with NS and 4x4 gauze - Apply Kali Cream and cover with Allevyn Foam Dressing Daily 2. Left Gluteal - Stage II Pressure Ulcer Present On Admission - Cleanse area with NS and 4x4 gauze - Apply Kali Cream and cover with Allevyn Foam Dressing Daily 3. Turn and Reposition Every 2 Hours using wall clock turning schedule. 4. Continue Alternating Pressure Air Mattress 5. Bilateral Heel Protectors / Offload Heels with pillows while in bed 6. HOB elevated < or = 30 Degrees as tolerated. Thank you for consulting with Wound Care. Addendum: 06/28/18 at 1343 by Marcelo Chong RN Amended: Links added.
--- NOTE | 2018-06-28 14:55 | NUR ---
FAMILY SIGNED CHOICE FOR [facility]
--- NOTE | 2018-06-28 14:55 | NUR ---
PT HAS COPAY OF $2040.00 SON IS SUPPOSED TO GO PAY THE AMOUNT, THE FACILITY WILL CALL THE NURSES STATION TO GIVE ROOM NUMBER WHEN THAT IS COMPLETED. CALL REPORT TO [phone]
[2018-06-28] MEDS: CEFTRIAXONE SOD 1 GM/NS 50 ML 50 ML IV SCH (17:00)
[2018-06-28] MEDS: AZITHROMYCIN 500MG/NS 250 ML 250 ML IV SCH (20:36)
[2018-06-28] MEDS: ATORVASTATIN 20 MG TAB PO SCH (20:36)
[2018-06-29] MEDS: LEVALBUTEROL HCL SOLN NEBU 0.63 MG/3 ML NEB INH SCH ×4 (01:00→19:00)
[2018-06-29] MEDS: IPRATROPIUM BROMIDE 0.02% 2.5 ML NEB NEB SCH ×4 (01:00→19:00)
[2018-06-29 04:51] VITALS: BP 127/68
[2018-06-29 05:34] LABS: BASOPHILS # (AUTO) 0.1 (0.0-0.1); BASOPHILS % 0.6 % (0.0-1.0); EOSINOPHILS % 0.4 % (0.0-6.0); HEMOGLOBIN 10.6 g/dL (12.0-16.0); LYMPHOCYTES # (AUTO) 1.9 (1.0-3.2); LYMPHOCYTES % 20.2 % (18.0-39.1); MEAN CORPUSCULAR HEMOGLOBIN 25.6 pg (28-32); MEAN CORPUSCULAR HGB CONC 29.4 g/dL (31-35); MONOCYTES # (AUTO) 0.6 (0.2-0.8); MONOCYTES % 6.3 % (4.4-11.3); NEUTROPHILS # (AUTO) 6.8 (2.1-6.9); NEUTROPHILS % 71.7 % (38.7-80.0); PLATELET COUNT 314 x10e3/uL (140-360); RED BLOOD COUNT 4.14 x10e6/uL (3.6-5.1); RED CELL DISTRIBUTION WIDTH 15.1 % (11.7-14.4)
--- NOTE | 2018-06-29 05:43 | Diagnostic Imaging Report ---
EXAMINATION: CHEST SINGLE (PORTABLE) COMPARISON: Chest x-ray 06/27/2018 INDICATION: Right lower lobe pneumonia ^CHF DISCUSSION: Frontal view of the chest obtained at 0522 hours. HEART AND MEDIASTINUM: Stable cardiomegaly and tortuous aorta LINES: None. LUNGS: Airspace opacities in the right lung are similar with blunting of the right lateral costophrenic angle consistent with pleural effusion. Pulmonary vasculature is prominent. Stable tiny left pleural effusion. No new findings in the left lung. PLEURA: No pneumothorax. BONES AND SOFT TISSUES: Stable fusion hardware in the right humerus.. The soft tissues are normal. IMPRESSION: No change in airspace opacities in the right lung. Stable pleural effusions. Signed by: Dr. Parker Larry MD on 06/29/2018 5:40 AM
[2018-06-29 06:03] LABS: ALANINE AMINOTRANSFERASE 11 IU/L (0-55); ALBUMIN 2.7 g/dL (3.5-5.0); ALKALINE PHOSPHATASE 81 IU/L (40-150); ANION GAP 12.6 mmol/L (8-16); BLOOD UREA NITROGEN 19 mg/dL (7-26); BUN/CREATININE RATIO 23 (6-25); CALCIUM 8.6 mg/dL (8.4-10.2); CARBON DIOXIDE 30 mmol/L (22-29); CHLORIDE 103 mmol/L (98-107); CREATININE, SERUM 0.84 mg/dL (0.57-1.11); EST GLOMERULAR FILTRATION RATE > 60 ML/MIN (60-); GLUCOSE 90 mg/dL (74-118); POTASSIUM 3.6 mmol/L (3.5-5.1); SODIUM 142 mmol/L (136-145)
[2018-06-29] MEDS: FUROSEMIDE INJ 10 MG/ML 4 ML VIAL IV SCH ×3 (06:07→22:13)
[2018-06-29] MEDS: INSULIN REGULAR, HUMAN 100 UNIT/1 ML 3ML VIAL SQ SCH ×4 (07:30→21:00)
[2018-06-29 07:45] VITALS: BP 128/57
[2018-06-29 08:00] VITALS: BP 128/57
[2018-06-29] MEDS: POLYETHYLENE GLYCOL 3350 17 GM PACK PO SCH (08:04)
[2018-06-29] MEDS: GUAIFENESIN 600MG/DEXTROMETHORPHAN 30MG TABSR PO SCH ×2 (08:11→16:45)
[2018-06-29] MEDS: PANTOPRAZOLE SOD 40 MG TABEC PO SCH (08:11)
[2018-06-29] MEDS: ENOXAPARIN SOD INJ 40 MG/0.4 ML SYR SC SCH ×2 (08:11→22:13)
[2018-06-29] MEDS: GABAPENTIN 100 MG CAP PO SCH ×3 (08:11→22:13)
[2018-06-29] MEDS: AMIODARONE HCL 200 MG TAB PO SCH ×2 (08:11→16:45)
[2018-06-29] MEDS: ASPIRIN 81 MG ENTERIC COATED PO SCH (08:11)
[2018-06-29] MEDS: AMLODIPINE BESYLATE 5 MG TAB PO SCH (08:11)
[2018-06-29] MEDS: ZINC OXIDE / BALSAM PERU 30 GM TUBE TOP SCH (08:11)
[2018-06-29] MEDS: LOSARTAN POTASSIUM 25 MG TAB PO SCH (08:12)
[2018-06-29] MEDS: POTASSIUM CHLORIDE 20 MEQ TAB CR PO SCH (08:12)
[2018-06-29] MEDS: METOPROLOL TARTRATE 25 MG TAB PO SCH ×2 (08:12→16:45)
[2018-06-29 12:30] VITALS: BP 110/62
--- NOTE | 2018-06-29 13:45 | Progress Note ---
DATE: 06/29/2018 Cardiology Progress Note SUBJECTIVE: The patient denies chest pain or shortness of breath. She worked with physical therapy today. OBJECTIVE: VITAL SIGNS: Temperature 97.1 degrees, pulse 78, respiratory rate 19, blood pressure 110/62, and oxygen saturation 98% on 4 L nasal cannula. GENERAL: Elderly frail woman, in no acute distress. LUNGS: Crackles at bilateral bases, otherwise clear to auscultation. CARDIOVASCULAR: Normal rate. Irregularly irregular. Normal S1, S2. No murmur. ABDOMEN: Soft, nontender. EXTREMITIES: No edema. CARDIAC MEDICATIONS: Metoprolol tartrate 100 mg p.o. b.i.d., losartan 50 mg p.o. daily, enoxaparin 40 mg subcu q.12 hours, amiodarone 200 mg p.o. b.i.d., aspirin 81 mg p.o. daily, amlodipine 5 mg p.o. daily, furosemide 40 mg IV q.8 hours, and atorvastatin 20 mg p.o. at bedtime. LABORATORY DATA: WBC 9.54, hemoglobin 10.6, hematocrit 36, platelets 314. Sodium 142, potassium 3.6, chloride 103, CO2 of 30, BUN 19, and creatinine 0.84. BNP 1134. IMAGING STUDIES: Chest x-ray; no change in airspace opacity in the right lung, stable pleural effusions. TELEMETRY: Atrial fibrillation. IMPRESSION: 1. Chest pain. 2. Atrial fibrillation. 3. Hypertension. 4. Hyperlipidemia. RECOMMENDATIONS: No evidence of myocardial infarction on serial cardiac biomarkers. Stress test demonstrated normal myocardial perfusion. BNP remains elevated. We will increase Lasix. Strict I's and O's and daily weights. Monitor volume status closely. Follow creatinine closely. The patient's son was at bedside, discussed current diagnoses and the patient's functional status. The patient's son indicates that she does get up and walk to the bathroom and to meals with assistance at baseline, although she is currently weaker than her normal self. Given frailty as well as fall risk, no anticoagulation at this time. They understand that the patient is at increased risk for CVA given her atrial fibrillation. In addition, discussed the patient's lower extremity arterial Doppler which suggested peripheral arterial disease in the right lower extremity. Given her frailty as well as the lack of wounds or gangrenous changes, recommend conservative medical therapy. The patient's family agrees with the plan of care. Continue current cardiac medications otherwise. Thank you for this consult. We will continue to follow. Anita De Leon MD [facility]/MODL /[id number]
--- NOTE | 2018-06-29 14:10 | NUR ---
PATIENT ARRIVED TO ROOM 293 AT THIS TIME. SHE IS IN STABLE CONDITION. ORIENTED TO NEW ROOM. CALL LIGHT WITHIN REACH. BED IN THE LOWEST POSITION.
--- NOTE | 2018-06-29 14:41 | Progress Note ---
DATE: 06/29/2018 SUBJECTIVE: The patient states she feels better. She is not having pain or dyspnea. She is eating and on oxygen. PHYSICAL EXAMINATION: VITAL SIGNS: The patient is afebrile. The blood pressure is 127/57 and the pulse is 94. The saturation is 96% on 3 L. HEENT: Shows no facial swelling or erythema. CARDIAC: Reveals regular rate and rhythm with a normal S1 and S2. LUNGS: Auscultation of lungs reveals clear breath sounds bilaterally. There is no wheezing. ABDOMEN: Soft, nontender. There is no rebound or guarding. EXTREMITIES: Show no leg edema or calf tenderness. LABORATORY DATA: White blood cell count is 9.5 and the hemoglobin is 10.6. The platelet count is 314. The BUN to creatinine ratio is normal. The other electrolytes are within normal limits. The BNP is still elevated at 1134. IMPRESSION: 1. Acute on chronic systolic congestive heart failure. 2. Atrial fibrillation with rapid ventricular response. 3. Bilateral pleural effusions. 4. Hypertension. 5. Diverticulosis. PLAN: 1. Continue diuresis. 2. Continue current cardiac regimen. 3. Wean oxygen. 4. Out of bed as tolerated. 5. Physical therapy. Otto Robledo MD [facility] /[id number]
[2018-06-29 15:37] VITALS: BP 118/56
[2018-06-29] MEDS: CEFTRIAXONE SOD 1 GM/NS 50 ML 50 ML IV SCH (16:45)
--- NOTE | 2018-06-29 19:32 | NUR ---
REPORT GIVEN TO ONCOMING NURSE. PATIENT IS RESTING IN BED. NO ACUTE DISTRESS NOTED. DENIES PAIN OR DISCOMFORT. CALL LIGHT WITHIN REACH. BED IN THE LOWEST POSITION.
[2018-06-29 20:00] VITALS: BP 118/56
--- NOTE | 2018-06-29 20:20 | NUR ---
ASSISTED PATIENT WITH ADLS, NO ACUTE DISTRESS OBSERVED AND SHE DENIES PAIN. BED ALARM ON, CALL LIGHT WITHIN EASY REACH.
[2018-06-29] MEDS: ATORVASTATIN 20 MG TAB PO SCH (22:13)
[2018-06-30] VITALS (9 sets, daily range): BP systolic 95–127; BP diastolic 50–63
--- NOTE | 2018-06-30 00:35 | NUR ---
PATIENT IS ASLEEP, NO RESPIRATORY DISTRESS OBSERVED. BED ALARM ON, CALL LIGHT WITHIN EASY REACH.
[2018-06-30] MEDS: IPRATROPIUM BROMIDE 0.02% 2.5 ML NEB NEB SCH ×4 (02:30→20:15)
[2018-06-30] MEDS: LEVALBUTEROL HCL SOLN NEBU 0.63 MG/3 ML NEB INH SCH ×4 (02:30→20:15)
--- NOTE | 2018-06-30 04:10 | NUR ---
PATIENT REMAINS ASLEEP WITHOUT RESPIRATORY DISTRESS, BED ALARM ON, CALL LIGHT WITHIN EASY REACH.
[2018-06-30] MEDS: FUROSEMIDE INJ 10 MG/ML 4 ML VIAL IV SCH ×3 (05:35→21:49)
[2018-06-30 06:40] LABS: BASOPHILS # (AUTO) 0.1 (0.0-0.1); BASOPHILS % 0.6 % (0.0-1.0); EOSINOPHILS % 0.5 % (0.0-6.0); HEMATOCRIT 35.4 % (34.2-44.1); HEMOGLOBIN 10.8 g/dL (12.0-16.0); LYMPHOCYTES # (AUTO) 1.6 (1.0-3.2); LYMPHOCYTES % 17.6 % (18.0-39.1); MEAN CORPUSCULAR HEMOGLOBIN 25.9 pg (28-32); MEAN CORPUSCULAR HGB CONC 30.5 g/dL (31-35); MEAN CORPUSCULAR VOLUME 84.9 fL (81-99); MONOCYTES # (AUTO) 0.6 (0.2-0.8); MONOCYTES % 7.2 % (4.4-11.3); NEUTROPHILS # (AUTO) 6.5 (2.1-6.9); NEUTROPHILS % 73.4 % (38.7-80.0); PLATELET COUNT 319 x10e3/uL (140-360); RED BLOOD COUNT 4.17 x10e6/uL (3.6-5.1); RED CELL DISTRIBUTION WIDTH 15.1 % (11.7-14.4)
[2018-06-30 06:54] LABS: ANION GAP 15.5 mmol/L (8-16); CALCIUM 8.5 mg/dL (8.4-10.2); CREATININE, SERUM 0.89 mg/dL (0.57-1.11); MAGNESIUM 1.8 MG/DL (1.3-2.1); POTASSIUM 3.5 mmol/L (3.5-5.1)
--- NOTE | 2018-06-30 06:58 | NUR ---
RECEIVED PATIENT RESTING IN BED. RESPIRATIONS EVEN AND UNLABORED, NO ACUTE DISTRESS NOTED. NO S/S OF PAIN NOTED. CALL LIGHT WITHIN REACH. BED IN THE LOWEST POSITION.
[2018-06-30] MEDS: INSULIN REGULAR, HUMAN 100 UNIT/1 ML 3ML VIAL SQ SCH ×4 (07:30→20:45)
[2018-06-30] MEDS ORDERED: POLYETHYLENE GLYCOL 3350 17 GM PACK PO PRN (08:45)
[2018-06-30] MEDS: PANTOPRAZOLE SOD 40 MG TABEC PO SCH (09:12)
[2018-06-30] MEDS: AMIODARONE HCL 200 MG TAB PO SCH ×2 (09:12→16:43)
[2018-06-30] MEDS: ASPIRIN 81 MG ENTERIC COATED PO SCH (09:12)
[2018-06-30] MEDS: ENOXAPARIN SOD INJ 40 MG/0.4 ML SYR SC SCH ×2 (09:13→20:22)
[2018-06-30] MEDS: GABAPENTIN 100 MG CAP PO SCH ×3 (09:13→20:22)
[2018-06-30] MEDS: GUAIFENESIN 600MG/DEXTROMETHORPHAN 30MG TABSR PO SCH ×2 (09:13→16:43)
[2018-06-30] MEDS: LOSARTAN POTASSIUM 25 MG TAB PO SCH (09:13)
[2018-06-30] MEDS: AMLODIPINE BESYLATE 5 MG TAB PO SCH (09:13)
[2018-06-30] MEDS: POTASSIUM CHLORIDE 20 MEQ TAB CR PO SCH (09:13)
[2018-06-30] MEDS: METOPROLOL TARTRATE 25 MG TAB PO SCH ×2 (09:13→16:43)
[2018-06-30] MEDS: ZINC OXIDE / BALSAM PERU 30 GM TUBE TOP SCH (09:30)
--- NOTE | 2018-06-30 14:10 | Progress Note ---
DATE: 06/30/2018 Cardiology Progress Note SUBJECTIVE: The patient denies chest pain or shortness of breath. OBJECTIVE: VITAL SIGNS: Temperature 96.3 degrees, pulse 81, respiratory rate 20, blood pressure 113/55, and oxygen saturation 96% on 4 L nasal cannula. GENERAL: Elderly woman, frail, in no acute distress, awake and alert. LUNGS: Crackles at bilateral bases, otherwise clear to auscultation. CARDIOVASCULAR: Normal rate. Irregularly irregular. Normal S1, S2. No murmur. ABDOMEN: Soft, nontender. EXTREMITIES: No edema. CARDIAC MEDICATIONS: Metoprolol 100 mg p.o. b.i.d., losartan 50 mg p.o. daily, amlodipine 5 mg p.o. daily, amiodarone 200 mg p.o. b.i.d., aspirin 81 mg p.o. daily, Lasix 80 mg IV q.8 hours, atorvastatin 20 mg p.o. at bedtime. LABORATORY DATA: WBC 8.86, hemoglobin 10.8, hematocrit 35.4, platelets 319. Sodium 141, potassium 3.5, chloride 101, CO2 of 28, BUN 18, and creatinine 0.89. BNP 1378. TELEMETRY: Atrial fibrillation. IMPRESSION: 1. Chest pain. 2. Atrial fibrillation. 3. Hypertension. 4. Hyperlipidemia. RECOMMENDATIONS: No evidence of myocardial infarction on serial cardiac biomarkers. Stress test demonstrated normal myocardial perfusion. BNP is elevated. Lasix has been increased. Monitor volume status closely. Strict I's and O's and daily weights. We will follow creatinine. Given the patient's frailty as well as fall risk, no anticoagulation at this time. The family understands that the patient is at increased risk for CVA given her atrial fibrillation. The patient's lower extremity arterial Doppler suggest peripheral arterial disease in the right lower extremity. Given her lack of ulcers and wounds, recommend conservative medical therapy. Continue current medical therapy. Thank you for this consult. We will continue to follow. Anita De Leon MD [facility]/MODL /[id number]
--- NOTE | 2018-06-30 15:55 | NUR ---
Visit made by the Spiritual Care Department Pastoral Visitor, Guzman Driscoll. PV provided pastoral presence, prayer, hospitality, communion, and supportive listening. Pastoral Visitor informed pt/family of the scope of [facility] and availability. CLAY DONATO Banquet Cook Spiritual Care Department O: [phone] Pager: [phone] number calling from)
[2018-06-30] MEDS: CEFTRIAXONE SOD 1 GM/NS 50 ML 50 ML IV SCH (17:36)
--- NOTE | 2018-06-30 18:23 | NUR ---
UPON CLEANING PATIENT UP, NOTED SMALL SKIN TEAR TO RIGHT UPPER ARM.
--- NOTE | 2018-06-30 18:56 | NUR ---
REPORT GIVEN TO ONCOMING NURSE, WALKING ROUNDS DONE. PATIENT IS IN STABLE CONDITION, NO ACUTE DISTRESS NOTED. CALL LIGHT WITHIN REACH. BED IN THE LOWEST POSITION.
[2018-06-30] MEDS: ATORVASTATIN 20 MG TAB PO SCH (20:22)
[2018-07-01] MEDS: IPRATROPIUM BROMIDE 0.02% 2.5 ML NEB NEB SCH ×3 (00:30→13:00)
[2018-07-01] MEDS: LEVALBUTEROL HCL SOLN NEBU 0.63 MG/3 ML NEB INH SCH ×3 (00:30→13:00)
[2018-07-01 04:00] VITALS: BP 127/60
[2018-07-01] MEDS: FUROSEMIDE INJ 10 MG/ML 4 ML VIAL IV SCH ×2 (05:38→14:00)
[2018-07-01 06:18] LABS: BASOPHILS # (AUTO) 0.1 (0.0-0.1); BASOPHILS % 0.6 % (0.0-1.0); EOSINOPHILS # (AUTO) 0.1 (0.0-0.4); EOSINOPHILS % 0.6 % (0.0-6.0); HEMATOCRIT 39.2 % (34.2-44.1); HEMOGLOBIN 11.8 g/dL (12.0-16.0); LYMPHOCYTES # (AUTO) 1.7 (1.0-3.2); LYMPHOCYTES % 21.1 % (18.0-39.1); MEAN CORPUSCULAR HEMOGLOBIN 25.8 pg (28-32); MEAN CORPUSCULAR HGB CONC 30.1 g/dL (31-35); MEAN CORPUSCULAR VOLUME 85.8 fL (81-99); MONOCYTES # (AUTO) 0.6 (0.2-0.8); MONOCYTES % 7.5 % (4.4-11.3); NEUTROPHILS # (AUTO) 5.5 (2.1-6.9); NEUTROPHILS % 69.3 % (38.7-80.0); PLATELET COUNT 343 x10e3/uL (140-360); RED BLOOD COUNT 4.57 x10e6/uL (3.6-5.1)
[2018-07-01 06:43] LABS: ANION GAP 12.5 mmol/L (8-16); CREATININE, SERUM 1.04 mg/dL (0.57-1.11); MAGNESIUM 2.2 MG/DL (1.3-2.1); POTASSIUM 3.5 mmol/L (3.5-5.1)
[2018-07-01] MEDS: INSULIN REGULAR, HUMAN 100 UNIT/1 ML 3ML VIAL SQ SCH ×3 (07:30→16:30)
[2018-07-01 08:18] VITALS: BP 127/58
[2018-07-01] MEDS: AMIODARONE HCL 200 MG TAB PO SCH ×2 (09:06→17:08)
[2018-07-01] MEDS: ASPIRIN 81 MG ENTERIC COATED PO SCH (09:06)
[2018-07-01] MEDS: PANTOPRAZOLE SOD 40 MG TABEC PO SCH (09:06)
[2018-07-01] MEDS: LOSARTAN POTASSIUM 25 MG TAB PO SCH (09:07)
[2018-07-01] MEDS: POTASSIUM CHLORIDE 20 MEQ TAB CR PO SCH (09:08)
[2018-07-01] MEDS: AMLODIPINE BESYLATE 5 MG TAB PO SCH (09:09)
[2018-07-01] MEDS: METOPROLOL TARTRATE 25 MG TAB PO SCH ×2 (09:09→17:08)
[2018-07-01] MEDS: ENOXAPARIN SOD INJ 40 MG/0.4 ML SYR SC SCH (09:09)
[2018-07-01] MEDS: GUAIFENESIN 600MG/DEXTROMETHORPHAN 30MG TABSR PO SCH ×2 (09:09→17:08)
[2018-07-01] MEDS: GABAPENTIN 100 MG CAP PO SCH ×2 (09:09→17:08)
[2018-07-01] MEDS: ZINC OXIDE / BALSAM PERU 30 GM TUBE TOP SCH (11:00)
[2018-07-01 11:55] VITALS: BP 111/57
--- NOTE | 2018-07-01 13:09 | NUR ---
PT ACCEPTED AT [facility] [place] UNDER [facility] ROOM 205B. GAVE RTF TO THE NURSE AND PASRR IS IN CHART
[2018-07-01] MEDS: CEFTRIAXONE SOD 1 GM/NS 50 ML 50 ML IV SCH (13:20)
--- NOTE | 2018-07-01 13:39 | Progress Note ---
DATE: 07/01/2018 Cardiology Progress Note SUBJECTIVE: No major events overnight. OBJECTIVE: VITAL SIGNS: Temperature 97.0, pulse 79, respiratory rate 16, blood pressure 127/58, saturating 98% on nasal cannula. GENERAL: Elderly woman, frail, no acute distress. CARDIOVASCULAR: Regular rate and rhythm. No murmurs, rubs, or gallops. LUNGS: Crackles at the bases. ABDOMEN: Soft, nontender, nondistended. NEURO AND PSYCH: Alert and oriented to person, place, and time. Normal affect. CARDIOVASCULAR MEDICATIONS: Reviewed. LABORATORY DATA: Reviewed. TELEMETRY DATA: Reviewed, shows atrial fibrillation, rate controlled. IMPRESSION: 1. Chest pain. 2. Atrial fibrillation. 3. Hypertension. 4. Hyperlipidemia. RECOMMENDATIONS: No evidence of myocardial infarction on serial biomarkers. Stress test was done, demonstrated normal myocardial perfusion, appears euvolemic by exam. Continue current dose of Lasix given fall risk. No anticoagulation at this time for atrial fibrillation. Has peripheral arterial disease based on arterial Dopplers, however, no claudication or ulcers. Continue medical therapy. No need for intervention at this time. Thank you for this consult. We will continue to follow. MD TIARRA Haro/MCKENZIE /[id number]
[2018-07-01 16:00] VITALS: BP 106/59
--- NOTE | 2018-07-01 16:27 | NUR ---
CALLED [phone], GAVE REPORT TO RITA GOULD TO TRANSEFER PATIENT TO [address], [facility] [place].
== END 2018-07-01 16:50 | DRG 291 ==
LOC: ER 13:22 → ERHOLD 20:20 → IMCU 20:57 → OBSVTOIN 06-25 19:13 → IMCU 06-26 11:13 → MED/SURG3 06-29 14:08
PROVIDERS: ADMIT Internal Medicine; ATTEND Internal Medicine
DX: I11.0 Hypertensive heart disease with heart failure (principal); J18.9 Pneumonia, unspecified organism; J90 Pleural effusion, not elsewhere classified; I50.23 Acute on chronic systolic (congestive) heart failure; I48.91 Unspecified atrial fibrillation; I10 Essential (primary) hypertension; K57.90 Diverticulosis of intestine, part unspecified, without perforation or abscess without bleeding; E78.5 Hyperlipidemia, unspecified
CPT/HCPCS: 36415; 71045; 74176; 74230; 78452; 80048; 80053; 80061; 81001; 82550; 82553; 82948; 83036; 83735; 83880; 84100; 84439; 84443; 84484; 85025; 85610; 85730; 87040; 87086; 93005; 93017; 93306; 93925; 93971; 94640; 96360; 96372; 96376; 97139; 99284; A9502; G0378; J0456; J0696; J1650; J1940; J7050

== ENCOUNTER 2018-07-22 20:17 | Emergency (ER) | payer MEDICARE ==
[~2018-07-22] VITALS: Ht 162.6 cm; Wt 59.0 kg
--- NOTE | 2018-07-22 21:31 | Diagnostic Imaging Report ---
EXAMINATION: Head CT without contrast. HISTORY:Status post fall, trauma to head. COMPARISON:None. TECHNIQUE: Multidetector axial images were obtained from the foramen magnum to the vertex without contrast. The images were reconstructed using brain and bone algorithms. Thin section brain images were reformatted into coronal and sagittal planes. Dose modulation, iterative reconstruction, and/or weight based adjustment of the mA/kV was utilized to reduce the radiation dose to as low as reasonably achievable. Intravenous contrast: None IMAGE QUALITY: Acceptable. FINDINGS: Skull/scalp: No lytic or blastic. lesions. No surgical changes. Parenchyma: Nonspecific bilateral (left more than right) frontoparietal confluent and patchy white matter hypodensity are likely related to small vessel ischemic changes. Focal hypodensity in anterior aspect of left putamen that extends to anterior limb of left internal capsule and caudate head represents old vascular insult. Cortical-based hypodensity in left precentral, superior and middle frontal gyrus represents chronic encephalomalacia related to prior vascular insult or trauma. Cortical-based hypodensity in left occipital lobe with regional volume loss represents chronic encephalomalacia from prior vascular insult in left MASTER TAX ADVISOR territory. No acute hemorrhage, mass or acute major vascular territorial infarct. Arteries: No density suggestive of thrombosis. Atherosclerotic calcification in bilateral carotid siphon and V4 segment of the vertebral arteries. Dural sinuses: No abnormal density suggestive of thrombosis. Ventricles: Compensated dilatation due to volume loss with exvacuodilatation particularly of the frontal horn of left lateral ventricle. No acute hydrocephalus. Extra-axial spaces: No abnormal density. Brain volume: Generalized age-related cerebral volume loss. Craniocervical junction: No mass, Chiari malformation, or basilar invagination. Sella: No mass. Paranasal/mastoid sinuses: Imaged portions unremarkable. IMPRESSION: 1. No acute intracranial abnormality, particularly no acute hemorrhage, mass or acute major vascular territorial infarct. 2. Severe supratentorial white matter microvascular ischemic changes. 3. Chronic encephalomalacia in left frontal and left occipital lobe possibly related to prior vascular insult or trauma. 4. Chronic cavitating hypodensity in left striatocapsular region possibly related to prior hemorrhagic insult. Signed by: Dr. Germania Lambert M.D. on 07/22/2018 9:27 PM
--- NOTE | 2018-07-22 21:37 | Diagnostic Imaging Report ---
History: Trauma, fall. Comparison studies: None Technique: Axial images were obtained through the cervical region.. Coronal and sagittal images reconstructed from the axial data. Dose modulation, iterative reconstruction, and/or weight based adjustment of the mA/kV was utilized to reduce the radiation dose to as low as reasonably achievable. Intravenous contrast: None Findings: Fractures: None. Soft tissue injuries: None. Atlantoaxial articulation: Intact. Alignment: Loss of normal cervical lordosis is either positional or due to muscle spasm. No scoliosis. 2 mm grade 1 anterolisthesis at C4-C5, is likely degenerative. Cervicomedullary junction: No abnormalities. The foramen magnum is patent. Soft tissues: Nonspecific pleural-based thickening/effusion in right lung apex. Atherosclerotic calcification in carotid bulbs. 4.5 mm calcified nodule in right lobe of thyroid gland. Multiple surgical clips are partially visualized in left lateral neck. Vertebrae: No fractures, infection or neoplasm. Degenerative changes: C4-C5: Mild degenerative disc disease. Mild bilateral foraminal stenosis due to facet and uncovertebral arthrosis. C5-C6: Moderate degenerative disc disease. Mild right and moderate left foraminal stenosis due to facet and uncovertebral arthrosis. C6-C7: Severe degenerative disc disease. Mild right and moderate left foraminal stenosis due to facet and uncovertebral arthrosis. IMPRESSION: 1. No acute cervical spine fracture or dislocation. Loss of normal cervical lordosis is either positional or due to muscle spasm. 2. Ligament, spinal cord and or vascular abnormalities cannot be excluded on the basis of this examination. 3. Cervical spondylosis as detailed above. Signed by: Dr. Germania Lambert M.D. on 07/22/2018 9:34 PM
[2018-07-22 23:12] VITALS: BP 124/43
== END 2018-07-22 23:51 | disposition home or self-care (01) ==
LOC: ER 20:17
DX: S06.890A Other specified intracranial injury without loss of consciousness, initial encounter (principal); I10 Essential (primary) hypertension; I73.9 Peripheral vascular disease, unspecified; E78.5 Hyperlipidemia, unspecified; K21.9 Gastro-esophageal reflux disease without esophagitis
CPT/HCPCS: 70450; 72125; 99283

== ENCOUNTER 2018-09-30 20:11 | Inpatient (IN) | payer MEDICARE ==
[~2018-09-30] VITALS: Ht 162.6 cm; Wt 55.9 kg
[2018-09-30] MEDS ORDERED: SODIUM CHLORIDE 0.9% 1000ML 1,000 ML IV STA (20:15)
[2018-09-30 20:40] LABS: HEMOGLOBIN 13.3 g/dL (12.0-16.0); LYMPHOCYTES # (AUTO) 1.1 (1.0-3.2); LYMPHOCYTES % 1.8 % (18.0-39.1); MEAN CORPUSCULAR HEMOGLOBIN 26.2 pg (28-32); MEAN CORPUSCULAR HGB CONC 31.7 g/dL (31-35); MEAN CORPUSCULAR VOLUME 82.8 fL (81-99); MONOCYTES # (AUTO) 1.4 (0.2-0.8); MONOCYTES % 2.2 % (4.4-11.3); NEUTROPHILS # (AUTO) 54.5 (2.1-6.9); NEUTROPHILS % 88.4 % (38.7-80.0); PLATELET COUNT 144 x10e3/uL (140-360); RED BLOOD COUNT 5.07 x10e6/uL (3.6-5.1); RED CELL DISTRIBUTION WIDTH 21.2 % (11.7-14.4)
[2018-09-30 21:02] LABS: ALBUMIN 1.7 g/dL (3.5-5.0); ALBUMIN/GLOBULIN RATIO 0.6 (0.8-2.0); ANION GAP 19.5 mmol/L (8-16); CALCIUM 7.9 mg/dL (8.4-10.2); CREATININE, SERUM 5.22 mg/dL (0.57-1.11)
[2018-09-30 21:09] LABS: CREATINE KINASE MB 4.4 ng/mL (0-5.0)
[2018-09-30 21:17] LABS: POTASSIUM 6.5 mmol/L (3.5-5.1)
[2018-09-30] MEDS ORDERED: DIATRIZOATE MEGL/DIATRIZOA SOD 30 ML BTL PO ONE (21:28)
[2018-09-30] MEDS: METRONIDAZOLE 750MG/NS 150ML 150 ML IV SCH (21:29)
[2018-09-30] MEDS ORDERED: INSULIN REGULAR, HUMAN 100 UNIT/1 ML 3ML VIAL IV NR (21:30)
[2018-09-30] MEDS ORDERED: CALCIUM GLUCONATE 10% INJ 4.65 MEQ in SODIUM CHLORIDE 0.9% 50ML 50 ML IV ONE (21:30)
[2018-09-30] MEDS ORDERED: DEXTROSE 50% SYRINGE 50 ML IV ONE (21:30)
[2018-09-30] MEDS: VANCOMYCIN 250MG/5ML ORAL SOLN PO SCH (21:30)
[2018-09-30] MEDS ORDERED: SOD POLYSTYRENE SULFONATE SUSP 15 GM/60 ML BTL PO NR (21:30)
--- NOTE | 2018-09-30 21:34 | Diagnostic Imaging Report ---
EXAMINATION: CHEST SINGLE (PORTABLE) INDICATION: ^ERMD ORDER ^[id number] ^[id number] ^Y COMPARISON: 06/29/2018 FINDINGS: AP view TUBES and LINES: None. LUNGS: Limited by rotation. Lungs are well inflated. Pulmonary vascular congestion and mild interstitial edema. PLEURA: No pneumothorax. Small right pleural effusion. HEART AND MEDIASTINUM: The cardiomediastinal silhouette is enlarged. Aorta is markedly calcified and tortuous. BONES AND SOFT TISSUES: No acute osseous lesion. Partially seen right humeral plate and screw construct. Soft tissues are unremarkable. UPPER ABDOMEN: No free air under the diaphragm. IMPRESSION: Limited by rotation. Pulmonary vascular congestion and mild stranding edema. Small right pleural effusion. Signed by: Dr. Binu Kan MD on 09/30/2018 9:31 PM
[2018-09-30 23:47] VITALS: BP 90/49
--- NOTE | 2018-09-30 23:50 | NUR ---
son jack appiah, patient dnr. Son to bring advance directive in AM. code status changed to dnr per jose san.
--- NOTE | 2018-10-01 00:07 | Diagnostic Imaging Report ---
EXAM: CT Abdomen and Pelvis WITHOUT contrast INDICATION: ^colitis ^[id number] ^[id number] COMPARISON: CT dated 06/25/2018 TECHNIQUE: Abdomen and pelvis were scanned utilizing a multidetector helical scanner from the lung base to the pubic symphysis without administration of IV contrast. Absence of intravenous contrast decreases sensitivity for detection of focal lesions and vascular pathology. Coronal and sagittal reformations were obtained. Routine protocol was performed. IV CONTRAST: None ORAL CONTRAST: Gastroview COMPLICATIONS: None RADIATION DOSE: Total DLP: 287.62 mGy*cm Estimated effective dose: (DLP x 0.015 x size factor) mSv CTDIvol has been reviewed. It is below the limits set by the Radiation Protocol Committee (RPC). FINDINGS: LINES and TUBES: None. LOWER THORAX: Moderate size right pleural effusion with adjacent hazy opacities. Trace left pleural effusion, decreased from prior exam. Partially seen severe atherosclerotic calcification of coronary arteries. Borderline cardiomegaly. HEPATOBILIARY: Hyperdense liver. Otherwise, unenhanced liver is unremarkable. No biliary ductal dilation. GALLBLADDER: Dependent calcified gallstones. No wall thickening. SPLEEN: No splenomegaly. PANCREAS: No focal masses or ductal dilatation. ADRENALS: Again seen hyperplastic adrenal glands. KIDNEYS/URETERS: No hydronephrosis. Limited for evaluation of renal parenchyma without intravenous contrast. No stones. GI TRACT: No evidence of bowel obstruction. Colonic diverticulosis without evidence of diverticulitis. Mild descending, sigmoid, and the ascending colon wall thickening. Large cecal stool burden. Appendix is not visualized. Rectal distention. Contrast is seen within distal esophagus, representing gastroesophageal reflux. PELVIC ORGANS/BLADDER: Unremarkable. LYMPH NODES: No lymphadenopathy. VESSELS: There is severe atherosclerotic disease in the aorta and major arterial branches. PERITONEUM / RETROPERITONEUM: No free air or fluid. BONES: Generalized demineralization limits evaluation. Lumbar spine scoliosis with multilevel degenerative changes. SOFT TISSUES: Unremarkable. IMPRESSION: 1. Limited study without intravenous contrast. Moderate size right pleural effusion with adjacent hazy opacities, which could represent atelectasis or developing pneumonia in the appropriate clinical context. Trace left pleural effusion, decreased from prior exam. 2. Rectal distention which is difficult to determine whether it is due to stool or wall thickening or underlying lesion. Recommend correlation with physical exam or if indicated colonoscopy. 3. There is also mild descending, ascending, and sigmoid colon wall thickening which could represent mild colitis. 4. Colonic diverticulosis without evidence of diverticulitis. 5. Hyperdense liver. 6. Cholelithiasis without evidence of cholecystitis. Signed by: Dr. Binu Kan MD on 10/01/2018 12:04 AM
[2018-10-01] MEDS: SODIUM CHLORIDE 0.9% 1000ML 1,000 ML IV SCH ×2 (00:56→06:43)
[2018-10-01 01:22] LABS: BILIRUBIN,URINE MODERATE (NEGATIVE); CLARITY,URINE CLOUDY (CLEAR); KETONES,URINE TRACE (NEGATIVE); LEUKOCYTE ESTERASE ,URINE SMALL (NEGATIVE); NITRITE,URINE NEGATIVE (NEGATIVE); PROTEIN,URINE DIPSTICK TRACE (NEGATIVE); URINE UROBILINOGEN 0.2 mg/dL (0.2 - 1)
[2018-10-01 01:27] LABS: COLOR,URINE AMBER (YELLOW)
[2018-10-01] MEDS ORDERED: SODIUM BICARBONATE 8.4% INJ 50 ML SYR IV STA ×2 (01:45→03:25)
[2018-10-01 01:49] LABS: BACTERIA,URINE MANY /HPF; EPITHELIAL CELLS,URINE FEW /LPF; RBC,URINE 21-50 /HPF (0-5); WBC,URINE (MAN) 21-50 /HPF (0-5)
[2018-10-01 02:42] LABS: BASOPHILS % 0.1 % (0.0-1.0); EOSINOPHILS # (AUTO) 0.1 (0.0-0.4); EOSINOPHILS % 0.2 % (0.0-6.0); HEMATOCRIT 36.4 % (34.2-44.1); HEMOGLOBIN 11.3 g/dL (12.0-16.0); LYMPHOCYTES # (AUTO) 1.3 (1.0-3.2); LYMPHOCYTES % 2.2 % (18.0-39.1); MEAN CORPUSCULAR HEMOGLOBIN 26.2 pg (28-32); MEAN CORPUSCULAR VOLUME 84.3 fL (81-99); MONOCYTES # (AUTO) 2.1 (0.2-0.8); MONOCYTES % 3.5 % (4.4-11.3); NEUTROPHILS # (AUTO) 52.2 (2.1-6.9); NEUTROPHILS % 87.4 % (38.7-80.0); PLATELET COUNT 115 x10e3/uL (140-360); RED BLOOD COUNT 4.32 x10e6/uL (3.6-5.1); RED CELL DISTRIBUTION WIDTH 20.9 % (11.7-14.4)
--- NOTE | 2018-10-01 03:00 | NUR ---
lab called with glucose 49, checked glucose at bedside BG 60. Called dr. murcia, orders received.
[2018-10-01 03:07] LABS: ALBUMIN 1.4 g/dL (3.5-5.0); ALBUMIN/GLOBULIN RATIO 0.6 (0.8-2.0); ANION GAP 20.6 mmol/L (8-16); CALCIUM 7.4 mg/dL (8.4-10.2); CREATININE, SERUM 4.54 mg/dL (0.57-1.11)
[2018-10-01 03:08] LABS: POTASSIUM 5.6 mmol/L (3.5-5.1)
[2018-10-01] MEDS ORDERED: DEXTROSE 50% SYRINGE 50 ML IV STA (03:22)
[2018-10-01] MEDS ORDERED: SODIUM CHLORIDE 0.9% IV SCH (03:30)
[2018-10-01] MEDS ORDERED: SOD POLYSTYRENE SULFONATE SUSP 15 GM/60 ML BTL PO ONE ×2 (03:30→10:15)
[2018-10-01 04:00] VITALS: BP 80/43
--- NOTE | 2018-10-01 04:00 | NUR ---
Verified DNR with family. Spoke to dr murcia about DNR. Patient herminio 30-40s.
--- NOTE | 2018-10-01 04:45 | NUR ---
patient has not urinated, bladder scan showed 31ml, dr murcia aware.
--- NOTE | 2018-10-01 04:58 | NUR ---
patient family arrived. patient continues to be herminio 30-40s.
[2018-10-01] MEDS: VANCOMYCIN 250MG/5ML ORAL SOLN PO SCH ×2 (06:00→14:00)
[2018-10-01] MEDS: METRONIDAZOLE 750MG/NS 150ML 150 ML IV SCH ×2 (06:43→14:00)
--- NOTE | 2018-10-01 07:00 | NUR ---
BEDSIDE SHIFT REPORT RECEIVED FROM THE DRY CLEANER HELPER RN. PT IS ON HR 40, SHALLOW RESPIRATIONS, PT IS ON DNR. FAMILY AT BEDSIDE. DENIES NEEDS AT THIS TIME.
[2018-10-01 07:23] LABS: MONOCYTES % (MANUAL) 3 % (3.4-9.0); NEUTROPHILS % (MANUAL) 97 % (40-74)
[2018-10-01 07:24] LABS: RBC MORPHOLOGY COMMENT NORMAL
[2018-10-01 07:25] LABS: PLATELET ESTIMATE SLIGHTLY DECREASED; PLATELET MORPHOLOGY COMMENT FEW LARGE
[2018-10-01 08:00] VITALS: BP 86/50
[2018-10-01 09:00] VITALS: BP 86/50
[2018-10-01] MEDS ORDERED: LACTULOSE SYRUP 20 GM/30 ML UDC PO ONE (10:15)
[2018-10-01] MEDS ORDERED: SODIUM BICARBONATE 8.4% 150 ML in DEXTROSE 5% 1,000 ML IV SCH (10:15)
--- NOTE | 2018-10-01 10:15 | NUR ---
DR. ROSE AT BEDSIDE TO SEE THE PT. EXPLAINED THE SITUATION TO THE FAMILY. CANCELLED ALL ORDERS. NO MORE MEDS, ABX AND LABS PER AND ADMINISTER ONLY PAIN MEDICINE. FAMILY AGREED. FAMILY DENIES NEEDS AT THIS TIME
[2018-10-01] MEDS ORDERED: MORPHINE SULFATE INJ 4 MG/ML INJ 1ML IV PRN (10:45)
--- NOTE | 2018-10-01 10:50 | NUR ---
PAGED DR. FELICIANO REGARDING DR. ROSE'S ORDERS. NEW ORDER RECEIVED FOR HOSPICE EVAL PER GRETCHEN SUE.
[2018-10-01] MEDS ORDERED: SODIUM CHLORIDE 0.9% 1000ML 1,000 ML IV SCH (11:00)
--- NOTE | 2018-10-01 11:14 | NUR ---
CM SPOKE TO PATIENT AND PATIENT FAMILY AT BEDSIDE REGARDING DISCHARGE PLAN AND PLAN OF CARE. PATIENT SON/ POA STATES DR. CLEMENTS HAS SPOKEN TO HIM ABOUT ABOUT PATIENT PROGNOSIS AND HE IS AWARE THE PATIENT IS DUE TO WITHIN 72 HOURS. PATIENT SON STATES HOSPICE IS APPROPRIATE AND CHOOSES [facility]. CHOICE LETTER SIGNED AND PLACED IN CHART. PATIENT FROM FACILITY AND WILL RETURN ON HOSPICE. PATIENT TO RETURN TO FACILITY: [facility] Address: [address] [place] [address] ON HOSPICE SERVICES WITH: [facility] [address] [facility], [address] [place] [address] (P) [phone] (F) [phone]
--- NOTE | 2018-10-01 11:30 | NUR ---
ASSESSMENT: Spiritual concern Pt's family requested anointing of the sick. Pt's family at bedside. Pt's son, Antony, asked for "last rites" for his mother. Antony states his christian is [facility] in [place]. Intervention: Provided empathic listening. Called christian to request independent video producer. Outcome: Followed up with patient's family. Family expressed appreciation for support. CLAY DONATO [employer] Specialist Spiritual Care Department O: [phone] Pager: [phone] ([phone] number calling from)
--- NOTE | 2018-10-01 11:50 | NUR ---
HOSPICE TEAM AT BEDSIDE TO SEE THE PT. PT FAMILY AT BEDSIDE.
[2018-10-01 11:53] VITALS: BP 79/41
--- NOTE | 2018-10-01 12:00 | NUR ---
WALKING ROUNDS COMPLETED. PT IS RESTING ON BED. SHALLOW RESPIRATIONS, HR IS ON 30'S. PT FAMILY AT BEDSIDE AND DENIES NEEDS AT THIS TIME.
--- NOTE | 2018-10-01 13:00 | NUR ---
WALKING ROUNDS COMPLETED. PT IS RESTING ON BED. SHALLOW RESPIRATIONS, HR IS ON 30'S. PT FAMILY AT BEDSIDE AND DENIES NEEDS AT THIS TIME.
--- NOTE | 2018-10-01 14:00 | NUR ---
GRETCHEN LICENSING OFFICER AT BEDSIDE TO SEE THE PT. PT FAMILY AT BEDSIDE. PT FAMILY DENIES NEEDS AT THIS TIME.
--- NOTE | 2018-10-01 14:27 | Consultation ---
DATE OF CONSULTATION: 10/01/2018 HISTORY OF PRESENT ILLNESS: This is an 87-year-old female, who has been admitted with colitis, possible C difficile with significantly elevated white count of 59,000 and a hemoglobin of 11.3. Renal consulted for acute kidney injury. BUN and creatinine 76 and 4.5, bicarbonate 14 with a potassium of 5.6. The patient appears quite ill. She is only moaning slightly. She does not open eyes. She does not follow any commands. Hypotensive, systolic blood pressure in the 80s, heart rate 90, respiratory rate 25. She has several family members including two sons by bedside. Apparently has been made DNR. She has history of GERD, hyperlipidemia, history of hypertension, history of atrial fibrillation with RVR. I am unable to get review of systems, the patient does not follow any commands. ALLERGIES: SHE IS ALLERGIC TO IODINATED CONTRAST AND PNEUMOVAX. She is currently on vancomycin 500 p.o. q.8 h. She is on IV normal saline, metronidazole 750 mg IV q.8 h. She received a liter of normal saline bolus earlier. She is on insulin, lactulose syrup, morphine sulfate p.r.n. Received and apparently has an order for Kayexalate 30 g once to be given orally. The patient's nurse is at bedside, he states the patient is not able to swallow and given her overall condition, the patient has high aspiration risk and will not be able to swallow any oral medications. PHYSICAL EXAMINATION: VITAL SIGNS: As above. HEAD and NECK: Eyes when open, no icterus. Neck veins generally appear flat. LUNGS: Harsh vesicular breath sounds. Scattered rhonchi. Scattered rales. HEART: S1, S2 audible. ABDOMEN: Distended, tender. No deep palpation done. EXTREMITIES: Lower extremity, no edema. IMPRESSION AND PLAN: Severe metabolic acidosis, acute kidney injury likely acute tubular necrosis, hyperkalemia, clostridium difficile colitis, has colonic diverticulosis, cholelithiasis, right-sided pleural effusion, hypotensive in shock. Family has requested DNR. Discussed with family members. The patient will need aggressive medical treatment for her kidney failure as well as shock state and colitis. Prognosis appears poor. Family has decided to keep her comfortable. They only want comfort compassionate care, do not want any further medical treatment at which point in time I discontinued all my orders and labs and I have recommended morphine to be given as needed for pain or distress. Discussed with Alexander, nurse practitioner with Dr. Hernandez's group. Consider hospice eval. MD PATRICE Osorio/MCKENZIE /[id number]
--- NOTE | 2018-10-01 14:45 | NUR ---
WALKING ROUNDS COMPLETED. PT RESPIRATIONS AND HR SLOWED DOWN. GRETCHEN PIT FURNACE OPERATOR AT NURSES STATION AND NOTIFIED.
--- NOTE | 2018-10-01 14:50 | NUR ---
PRIMARY DOCTOR PRONOUNCED OF THE PT AND ALSO EXPLAINED THE SITUATION TO THE PT FAMILY. PT FAMILY VERBALIZED UNDERSTANDING. NOTIFIED THE SAME TO THE VISUAL ASSOCIATE.
--- NOTE | 2018-10-01 14:51 | NUR ---
[employer] NOTIFIED. PT IS NOT A CANDIDATE FOR [employer]GAN TRANSPLANT PER [employer].
--- NOTE | 2018-10-01 15:20 | NUR ---
CALLED [facility] PER THE REQUEST FROM PT FAMILY.
--- NOTE | 2018-10-01 15:30 | NUR ---
LAC AND RAC IV REMOVED. TIP INTACT. NO BLEEDING NOTED. DRESSING APPLIED. CARE COMPLETED. PT FAMILY AT BEDSIDE. DENIED FURTHER NEEDS.
--- NOTE | 2018-10-01 17:39 | NUR ---
BODY HANDED OVER TO [facility] AT 1730.PT FAMILY AT BEDSIDE AND VERBALIZED UNDERSTANDING. PT FAMILY DENIED FURTHER NEEDS.
--- NOTE | 2018-11-11 05:35 | Discharge Summary ---
ADMITTING DIAGNOSES: 1. Severe metabolic acidosis and acute kidney injury. 2. Clostridium difficile colitis with sepsis. 3. Right-sided pleural effusion. 4. Toxic metabolic encephalopathy. DISCHARGE DIAGNOSES: 1. Severe metabolic acidosis and acute kidney injury. 2. Clostridium difficile colitis with sepsis. 3. Right-sided pleural effusion. 4. Toxic metabolic encephalopathy. BRIEF HISTORY: Ms. Diaz is an 87-year-old lady with a past medical history of hypertension, hyperlipidemia, and atrial fibrillation with rapid ventricular response, and GERD. She was admitted with a diagnosis of C diff colitis and sepsis, severe sepsis with acute kidney injury and severe metabolic acidosis. She was sent here from [facility] and was unresponsive or poorly responsive due to toxic metabolic encephalopathy. Her past medical history as noted, hypertension, hyperlipidemia, atrial fibrillation with rapid ventricular response, and GERD. HOSPITAL COURSE: She was admitted to the ICU with IV fluids, IV Flagyl, p.o. vanc, morphine for pain and IV fluids of normal saline. On the 2nd day of admission, the family requested DNR and hospice care, which was arranged by case management. The patient was discharged to the [facility] facility with hospice care ordered. MD DILLON Bains/MCKENZIE /[id number]
== END 2018-10-01 17:39 | disposition expired | DRG 871 ==
LOC: ER 20:11 → ERHOLD 21:53 → MED/SURG2 23:48
PROVIDERS: ADMIT Internal Medicine; ATTEND Internal Medicine
DX: A41.9 Sepsis, unspecified organism (principal); L89.153 Pressure ulcer of sacral region, stage 3; N17.0 Acute kidney failure with tubular necrosis; R53.2 Functional quadriplegia; R65.21 Severe sepsis with septic shock; G93.41 Metabolic encephalopathy; E87.2 Acidosis; N17.9 Acute kidney failure, unspecified; J90 Pleural effusion, not elsewhere classified; R57.9 Shock, unspecified; A04.71 Enterocolitis due to Clostridium difficile, recurrent; I50.22 Chronic systolic (congestive) heart failure; E87.5 Hyperkalemia; K57.90 Diverticulosis of intestine, part unspecified, without perforation or abscess without bleeding; K80.20 Calculus of gallbladder without cholecystitis without obstruction; Z66 Do not resuscitate; K21.9 Gastro-esophageal reflux disease without esophagitis; E78.5 Hyperlipidemia, unspecified; I48.91 Unspecified atrial fibrillation; Z88.7 Allergy status to serum and vaccine; Z91.041 Radiographic dye allergy status; I11.0 Hypertensive heart disease with heart failure; Z79.82 Long term (current) use of aspirin
CPT/HCPCS: 36415; 71045; 74176; 80053; 81001; 82550; 82553; 82948; 83605; 84484; 85025; 87040; 87071; 87086; 87186; 87205; 99284; J0610; J1817; J2270; J7030; J7070; J7799